=== PATIENT | female | born 1950 | race Caucasian/White ===

== ENCOUNTER 2016-09-14 15:56 | Inpatient (IN) ==
[2016-09-14] MEDS ORDERED: methylPREDNISolone 125 MG/2 ML VIAL IVP ONE (16:16)
[2016-09-14] MEDS ORDERED: 0.9 % Sodium Chloride 1,000 ML IVC ONE (16:16)
[2016-09-14] MEDS ORDERED: Levofloxacin 750 MG/150 ML 750 MG/150 ML BAG IVPB ONE (16:16)
[2016-09-14] MEDS ORDERED: Ipratropium/Albuterol Neb 3 ML IH ONE (16:16)
[2016-09-14 17:05] LABS: Basophils % 0.4 %; Hematocrit 32.1 % (35.3-44.9); Immature Granulocytes % 2.4 % (0-4); Lymphocytes # 1.2 K/mcL (0.6-4.6); Lymphocytes % 13.4 %; Mean Corpuscular HGB Conc 34.3 g/dL (31.6-35.5); Mean Corpuscular Hemoglobin 32.1 pg (28.0-33.3); Mean Corpuscular Volume 93.6 fL (83.0-100.0); Mean Platelet Volume 10.4 fL (9.4-12.4); Monocytes # 0.6 K/mcL (0.0-1.3); Monocytes % 6.7 %; Platelet Count 113 K/mcL (140-400); Red Blood Count 3.43 M/mcL (3.82-4.97); Red Cell Distribution Width 13.7 % (11.5-14.5); Segmented Neutrophils % 77.1 %
[2016-09-14 17:22] LABS: Calcium 9.4 mg/dL (8.6-10.8); Potassium 4.5 mEq/L (3.5-4.5)
--- NOTE | 2016-09-14 18:43 | Emergency Department Note ---
Disposition Clinical Impression: BLANKA (acute kidney injury), Cough Bilateral pneumonia Qualifiers: Pneumonia type: due to unspecified organism Lung location: unspecified part of lung Qualified Code(s): J18.9 - Pneumonia, unspecified organism Disposition: Admitted As Inpatient Condition: Good Time of Disposition: 18:59 General Adult HPI - General Chief complaint: ED Upper Respiratory Infection Stated complaint: Cough, nausea, loss of appetite Time Seen by Provider: 09/14/16 16:02 Source: patient, family Mode of arrival: ambulatory Limitations: no limitations Nursing Notes Reviewed: Yes Vital Signs Reviewed: Yes - History of Present Illness HPI Narrative: Patient presents emergency room with persistent cough over the last 3 weeks. She was seen by her outside of hospital courier driver and they were concerned recommended she come to the emergency room. She has had a 36 pound weight loss in the last 3 months along with progressive weakness. Denies any other symptoms. She denied chest pain shortness of breath fevers chills nausea vomiting or diarrhea. Main complaint is a progression of the weakness in the persistent cough she is failed to outpatient antibiotic regimens Onset (ago): week(s) Pain Scale: 0 Consistency: constant Improves with: nothing Worsens with: movement Associated symptoms: Reports: cough, fever/chills, loss of appetite, malaise. Denies: diaphoresis Treatments Prior to Arrival: none - Related Data Home Medications Medication Instructions Recorded Confirmed Cholecalciferol (Vitamin D3) 50,000 unit PO WE 01/18/15 09/14/16 [Vitamin D3] FLUoxetine HCl [Prozac] 40 mg PO DAILY 01/18/15 09/14/16 Insulin Glargine,Hum.rec.anlog 20 unit SQ HS 01/18/15 09/14/16 [Lantus Solostar] Insulin LISPRO [HumaLOG] 0 units SQ TIDWM 01/18/15 09/14/16 Levothyroxine [Synthroid] 100 mcg PO DAILY 01/18/15 09/14/16 Promethazine [Phenergan] 25 mg PO Q6HR PRN 01/18/15 09/14/16 Rizatriptan Benzoate [Maxalt] 10 mg PO PRN PRN 01/18/15 09/14/16 Tizanidine [Zanaflex] 4 mg PO HS 01/18/15 09/14/16 Amlodipine [Norvasc] 5 mg PO DAILY 12/10/15 09/14/16 Hydroxyzine HCl 25 mg PO BID PRN 01/21/16 09/14/16 Nystatin POWDER [Nystop] 1 appl TP BID 02/05/16 09/14/16 Amitriptyline [Elavil] 50 mg PO HS 09/14/16 09/14/16 Furosemide [Lasix] 40 mg PO BID PRN 09/14/16 09/14/16 Omeprazole [PriLOSEC] 20 mg PO DAILY 09/14/16 09/14/16 Previous Rx's Medication Instructions Recorded Folic Acid 1 mg PO DAILY #30 tablet 11/27/15 Nadolol [Corgard] 10 mg PO BID #60 tablet 12/14/15 Polyethylene Glycol 3350 [MiraLAX 1 scoop PO DAILY #510 gm 02/05/16 Powder Bulk 17.9 Oz] OxyCODONE ER (12 HR) [OxyCONTIN] 30 mg PO Q12H #14 tab.er.12h 02/23/16 OxyCODONE Immed Rel [Roxicodone 5 5 mg PO Q4HR PRN #60 tablet 02/23/16 MG] Allergies Allergy/AdvReac Type Severity Reaction Status Date / Time Penicillins Allergy Rash Verified 03/03/16 15:25 metoclopramide [From Reglan] AdvReac See Verified 03/03/16 15:25 Comments All systems ED: reviewed and negative except as stated. Constitutional: Denies: fever, chills Cardiovascular: Reports: dyspnea on exertion, orthopnea. Denies: chest pain, palpitations Respiratory: Reports: cough. Denies: dyspnea, wheezes Gastrointestinal: Denies: abdominal pain, nausea, vomiting, diarrhea Genitourinary: Denies: dysuria, frequency Past Medical History - Past Medical History Attestation: Yes The following information was validated with the patient. Source: patient Medical history: Reports: arthritis, CHF, diabetes, GERD, hypertension, liver disease, migraine, osteoporosis, renal disease, thyroid disease, other Surgical history: Reports: appendectomy, , cholecystectomy, hysterectomy, orthopedic, other, other Psychiatric history: Reports: anxiety, depression PIPE INSULATOR HELPER history: Reports: no PIPE INSULATOR HELPER history - Social History Smoking Status: Never smoker Smokeless Tobacco Status: No Alcohol use: Reports: none Drug use: Reports: none Physical Exam - General Limitations: no limitations General appearance: alert, in no apparent distress - Neck Neck exam: Present: normal inspection, full ROM, trachea midline. Absent: tenderness - Chest Chest inspection: Present: normal inspection, symmetric chest wall rise. Absent : tenderness - Respiratory Respiratory exam: Present: respiratory distress, wheezes, accessory muscle use. Absent: stridor - Cardiovascular Cardiovascular exam: Present: regular rate, normal rhythm, normal heart sounds - Abdominal Exam Abdominal exam: Present: soft, Non-Tender, normal bowel sounds. Absent: tenderness, distention, guarding, rebound - Extremities Exam Extremities exam: Present: normal inspection, full ROM, normal capillary refill. Absent: tenderness, pedal edema - Back Exam Back exam: Present: normal inspection, full ROM - Neurological Exam Neurological exam: Present: alert, oriented X3 - Psychiatric Psychiatric exam: Present: normal affect, normal mood - Skin Skin exam: Present: warm, dry, intact, normal color Course Course Narrative: Patient seen and examined the time of arrival. See history of present illness. 66-year-old female presents to emergency room complaining of cough nausea and persistent shortness of breath. She was seen by her courier driver Dr. Miranda recommended come the emergency room. She has had a 36 pound weight loss over the last 2-3 weeks as well. There was concern for some metastatic related disease or failed outpatient treatment of pneumonia. Vital signs on presentation are stable patient is afebrile. She does have accessory muscle use of weeks with diminished aeration in the bases of the lungs. Intermittent crackles and wheezes noted. Patient has regular heart dry mucous membranes abdomen is soft without masses no guarding no rigidity. patient was offered from his without any difficulty. patient is concerning for possible pneumonia is refractory to antibiotic regimen, malignancy, copd exacerbation lung disease. patient chest x-ray ekg troponin labs bnp and antibiotic regimen started at this time. blood cultures and lactic acid also ordered. patient stable resting comfortably in the bed. disposition pending workup and treatment course. family is at the bedside and they are comfortable with this plan. patient is currently denying fevers chills nausea vomiting diarrhea, chest pain headache or vision change. may complaint is intermittent shortness of breath and persistent cough - Reevaluation(s) Reevaluation #1: Patient found to have a area of consolidation in the right lower lung. By chest x-ray this is concerning consistent with her presentation. CT imaging order that time. Noncontrasted scan ordered secondary to acute on chronic renal insufficiency. Patient does have concern for malignancy even though she is not a active smoker. Vital signs otherwise stable. Labs are within normal limits. Creatinine is elevated up to 2.79. Baseline is 1.7. GFR stable. Patient will most likely need admission to hospital for definitive management. Disposition pending CT imaging Time: 16:35 Reevaluation #2: Patient found to have bilateral groundglass appearances to the lower lung pineda with consolidation in the right lower lung. Pulse ox and heart rate of stable. Low clinical suspicion of pulmonary emboli. Main concern at this time is interstitial pneumonia. Antibiotic regimen are started. Hospitalist was contacted. Nurse practitioner alfreda and I reviewed the patient's presentation symptoms and medical history. They had no other recommendations this time. Patient be brought in the hospital for bilateral lower lobe pneumonia persisting cough and concern for failure to thrive. No other acute pathology noted during this treatment course and evaluation. Admission process. We will continue to monitor admission is completed Time: 18:57 Vital Signs Temperature 98.2 F 09/14/16 15:59 Pulse Rate 70 09/14/16 15:59 Respiratory Rate 18 09/14/16 15:59 Blood Pressure 124/73 09/14/16 15:59 O2 Sat by Pulse Oximetry 97 09/14/16 15:59 Temperature 97.6 F 09/15/16 07:17 Pulse Rate 68 09/15/16 07:17 Respiratory Rate 15 09/15/16 07:17 Blood Pressure 114/63 09/15/16 07:17 O2 Sat by Pulse Oximetry 96 09/15/16 07:17 Oxygen Delivery Oxygen Delivery Room Air Medical Decision Making - MDM Narrative Medical decision making narrative: Bilateral pneumonia, cough, weight loss, failure to thrive - Medical Records Medical records reviewed: Yes I reviewed the patient's medical records. - Lab Data Lab results reviewed: Yes I reviewed the patient's lab results. Result diagrams: 09/15/16 04:47 09/15/16 04:47 Lab Results 09/14/16 09/14/16 09/14/16 Range/Units 16:54 16:54 16:54 WBC 9.0 (4.3-11.1) K/mcL RBC 3.43 L (3.82-4.97) M/mcL Hgb 11.0 L (11.5-15.4) g/dL Hct 32.1 L (35.3-44.9) % MCV 93.6 (83.0-100.0) fL MCH 32.1 (28.0-33.3) pg MCHC 34.3 (31.6-35.5) g/dL RDW 13.7 (11.5-14.5) % Plt Count 113 L (140-400) K/mcL MPV 10.4 (9.4-12.4) fL Immature Gran % 2.4 (0-4) % Seg Neutrophils % 77.1 % Lymphocytes % 13.4 % Monocytes % 6.7 % Eosinophils % 0.0 % Basophils % 0.4 % Neutrophils # 7.0 (1.6-8.9) K/mcL Lymphocytes # 1.2 (0.6-4.6) K/mcL Monocytes # 0.6 (0.0-1.3) K/mcL Eosinophils # 0.0 (0.0-0.6) K/mcL Basophils # 0.0 (0.0-0.2) K/mcL Sodium 131 L (136-145) mEq/L Potassium 4.5 (3.5-4.5) mEq/L Chloride 95 L (98-109) mEq/L Carbon Dioxide 25 (19-29) mEq/L BUN 67 H (7-20) mg/dL Creatinine 2.79 H (0.57-1.11) mg/dL Est GFR ( Amer) 21 L (> 60) Est GFR (Non-Af Amer) 17 L (> 60) BUN/Creatinine Ratio 24 (6-26) Glucose 164 H (70-99) mg/dL Calculated Osmolality 295 (280-300) Calcium 9.4 (8.6-10.8) mg/dL Troponin I 0.00 (0-0.03) ng/mL B-Natriuretic Peptide (0-100) pg/mL 09/14/16 Range/Units 16:54 WBC (4.3-11.1) K/mcL RBC (3.82-4.97) M/mcL Hgb (11.5-15.4) g/dL Hct (35.3-44.9) % MCV (83.0-100.0) fL MCH (28.0-33.3) pg MCHC (31.6-35.5) g/dL RDW (11.5-14.5) % Plt Count (140-400) K/mcL MPV (9.4-12.4) fL Immature Gran % (0-4) % Seg Neutrophils % % Lymphocytes % % Monocytes % % Eosinophils % % Basophils % % Neutrophils # (1.6-8.9) K/mcL Lymphocytes # (0.6-4.6) K/mcL Monocytes # (0.0-1.3) K/mcL Eosinophils # (0.0-0.6) K/mcL Basophils # (0.0-0.2) K/mcL Sodium (136-145) mEq/L Potassium (3.5-4.5) mEq/L Chloride (98-109) mEq/L Carbon Dioxide (19-29) mEq/L BUN (7-20) mg/dL Creatinine (0.57-1.11) mg/dL Est GFR ( Amer) (> 60) Est GFR (Non-Af Amer) (> 60) BUN/Creatinine Ratio (6-26) Glucose (70-99) mg/dL Calculated Osmolality (280-300) Calcium (8.6-10.8) mg/dL Troponin I (0-0.03) ng/mL B-Natriuretic Peptide 414 H (0-100) pg/mL - Radiology Data Radiology results reviewed: Yes I reviewed the patient's radiology results. Chest x-ray and CT scan confirmed bilateral lower lobe pneumonia. - EKG Data EKG #1 EKG attestation: Yes I reviewed and interpreted this EKG. EKG shows normal: sinus rhythm, axis, intervals, QRS complexes, ST-T waves Rate: normal Rhythm: NSR [place]/QRS: normal When compared to previous EKG there are: no significant changes Interpretation: no acute changes, unchanged when compared to prior tracing (date ) (02/21/16) Attestation Statement - Attestation Attestation: I, Darwin Montoya, examined this patient and my medical decision-making was reviewed with the COSMETICS DEMONSTRATOR/PA/Advanced Practice Nurse/Resident Physician. I agree with the documented findings, disposition and treatment plan as described except to the extent set forth below. 66-year-old female presents with concerns of increasing weakness and fatigue. Patient sent in by Dr. Miranda after being seen in the office. Patient has had significant weight loss of greater than 30 pounds over the past 3 months. Patient states that she has difficulty with her appetite, with everything tasting metallic or salty. Patient has a cough that has been present for multiple weeks and has been treated with 2 outpatient antibiotics although patient is unable to describe the name of these antibiotics. CT is suggestive of pneumonia. Patient started on levofloxacin secondary to penicillin allergy. Patient will be admitted to the hospital for continuation of care and further evaluation.
[2016-09-14] MEDS ORDERED: GuaiFENesin Liq 200 MG/10 ML UDC PO PRN (20:44)
[2016-09-14] MEDS: Benzonatate 100 MG CAPSULE PO PRN (20:59)
[2016-09-14] MEDS: *HR* Promethazine 25 MG/ML VIAL IVP PRN (21:31)
[2016-09-14] MEDS ORDERED: Acetaminophen 325 MG TABLET PO PRN (22:46)
[2016-09-14] MEDS ORDERED: Naloxone 0.4 MG/ML INJ IVP PRN (22:46)
--- NOTE | 2016-09-14 22:52 | Internal Med History&Physical ---
Date of Encounter: 09/14/16 Time of Encounter: 22:51 Assessment and Plan (1) Bilateral pneumonia Current visit: Yes Status: Acute Pt is noted to have bilateral pneumonia. Start on levofloxacin, for community- acquired pneumonia. Patient reports history of flu in the family - will start vancomycin to cover for possible post-influenza pneumonia. will obtain sputum cultures and titrate antibioitics Qualifiers: Pneumonia type: due to unspecified organism Lung location: unspecified part of lung Qualified Code(s): J18.9 - Pneumonia, unspecified organism (2) Acute kidney injury superimposed on CKD Current visit: Yes Status: Acute Positive for oral intake. Patient to started on IV fluids. (3) Chronic diastolic heart failure Current visit: Yes Status: Chronic monitor (4) Diabetes mellitus Current visit: Yes Status: Chronic Start sliding-scale insulin Qualifiers: Diabetes mellitus type: type 2 Diabetes mellitus complication status: with kidney complications Diabetes mellitus complication detail: with chronic kidney disease Diabetes mellitus usp insulin use: with usp use Chronic kidney disease stage: stage 3 (moderate) Qualified Code(s): E11.22 - Type 2 diabetes mellitus with diabetic chronic kidney disease; N18.3 - Chronic kidney disease, stage 3 (moderate); Z79.4 - jail (current) use of insulin (5) Hypothyroidism Current visit: Yes Status: Chronic Continue syntrhoid. Check TSH Qualifiers: Hypothyroidism type: unspecified Qualified Code(s): E03.9 - Hypothyroidism , unspecified (6) Physical deconditioning Current visit: Yes Status: Chronic PT evaluation (7) Weight loss Current visit: Yes Status: Acute Will check TSH, cortisol (8) Liver cirrhosis Current visit: Yes Status: Chronic continue nodalol Qualifiers: Hepatic cirrhosis type: unspecified hepatic cirrhosis Ascites presence: without ascites Qualified Code(s): K74.60 - Unspecified cirrhosis of liver Internal Medicine - H&P: HPI Chief complaint: Cough; Admitted From: Emergency Dept Plans for Post Hospital Care: Home History of present illness: Ms. Whelan is a 66 year old female with history of chronic anemia, CHF ( Chronic diastolic), diabetes, GERD, hypertension, liver disease (Cirrhosis), migraine, osteoporosis, Chronic kidney disease stage III (likely diabetic nephropathy), Hypothyroidism. She was seen by her scouring train operator Dr. Miranda, who recommended come the emergency room for suspected pneumonia. Patient presents emergency room with persistent cough over the last 3 weeks. She reports that her family members have been sick and there was concern for flu. She reports seeing her primary care physician recommended conservative management. She reports cough without significant expectoration. Reports shortness of breath, lower chest pain related to cough. Also reports nausea, generalized weakness, feeling dizzy on standing up, poor oral intake. She reportedly had 36 pound weight loss in the last 3 months She denies fever, chills, abdominal pain, dysuria, diarrhea. She was evaluated in the emergency department and imaging was suspicious for Pneumonia. She Was Given Levofloxacin and Solu-Medrol. She Is Admitted to Hospitalist Service for Further Workup and Management. Past Med Surg Social Fam HX - Past Medical History Medical history: arthritis, CHF, diabetes, GERD, hypertension, liver disease, migraine, osteoporosis, renal disease, thyroid disease, other Psychiatric history: anxiety, depression - Past Surgical History Surgical History: appendectomy, , cholecystectomy, hysterectomy, orthopedic, other, other - Social History Smoking Status: Never smoker Smokeless Tobacco Status: No Alcohol use: none Drug use: none - Family History Father Family Member Ethnicity: Non- Living Status: Hx Family Cardiac Disorders: Yes (Heart disease, stroke) Mother Family Member Ethnicity: Non- Living Status: Hx Family Cardiac Disorders: Yes (CHF) Hx Family Respiratory Disorders: No Hx Family Cancer: Yes (Pancreatic ca) Hx Family GI Disorders: No Hx Family Endocrine Disorder: Yes (DM) Hx Family Neuromuscular Disorders: No Hx Family Neurologic Disorders: No Hx Family HEENT Disorders: No Hx Family Autoimmune Disorders: No Internal Medicine - H&P: Meds Cholecalciferol (Vitamin D3) [Vitamin D3] 50,000 unit PO WE 01/18/15 [History] FLUoxetine HCl [Prozac] 40 mg PO DAILY 01/18/15 [History] Insulin Glargine,Hum.rec.anlog [Lantus Solostar] 20 unit SQ HS 01/18/15 [History ] Insulin LISPRO [HumaLOG] 0 units SQ TIDWM 01/18/15 [History] Levothyroxine [Synthroid] 100 mcg PO DAILY 01/18/15 [History] Promethazine [Phenergan] 25 mg PO Q6HR PRN 01/18/15 [History] Rizatriptan Benzoate [Maxalt] 10 mg PO PRN PRN 01/18/15 [History] Tizanidine [Zanaflex] 4 mg PO HS 01/18/15 [History] Folic Acid 1 mg PO DAILY #30 tablet 11/27/15 [Rx] Amlodipine [Norvasc] 5 mg PO DAILY 12/10/15 [History] Nadolol [Corgard] 10 mg PO BID #60 tablet 12/14/15 [Rx] Hydroxyzine HCl 25 mg PO BID PRN 01/21/16 [History] Nystatin POWDER [Nystop] 1 appl TP BID 02/05/16 [History] Polyethylene Glycol 3350 [MiraLAX Powder Bulk 17.9 Oz] 1 scoop PO DAILY #510 gm 02/05/16 [Rx] OxyCODONE ER (12 HR) [OxyCONTIN] 30 mg PO Q12H #14 tab.er.12h 02/23/16 [Rx] OxyCODONE Immed Rel [Roxicodone 5 MG] 5 mg PO Q4HR PRN #60 tablet 02/23/16 [Rx] Amitriptyline [Elavil] 50 mg PO HS 09/14/16 [History] Furosemide [Lasix] 40 mg PO BID PRN 09/14/16 [History] Omeprazole [PriLOSEC] 20 mg PO DAILY 09/14/16 [History] Allergies Penicillins Allergy (Verified 03/03/16 15:25) Rash metoclopramide [From Reglan] Adverse Reaction (Verified 03/03/16 15:25) See Comments All Systems PM: A 10-system review of systems was performed and is negative for pertinent findings except as documented above in the HPI. - Constitutional Vitals: Temp Pulse Resp BP Pulse Ox 98.5 F 75 17 107/70 100 09/14/16 21:06 09/14/16 21:06 09/14/16 21:06 09/14/16 21:06 09/14/16 21:06 Exam: General: In Mild distress distress at the time of my evaluation HEENT: Oral mucosa is dry. No conjunctival palor or scleral icterus Neck: No obvious neck swellings Lungs: Left basilar crackles Cardiac: Regular rate and rhythm. No significant murmurs Abdomen: Obese, non tender. Bowel sounds present Genitourinary: No davis catheter Neurological: Alert and oriented. No gross localizing deficits Psych: Not aggressive or agitated Extremities: no significant leg edema Skin: No generalized rash Internal Med - H&P Results - Labs CBC & Chem 7: 09/14/16 16:54 09/14/16 16:54 - EKG Data -: EKG Interpreted by Myself EKG shows normal: sinus rhythm - EKG Data EKG comments: T wave inversion in lead III 09/15/16 04:30 - Impressions ITS Impressions Chest X-Ray 09/14/16 16:17 IMPRESSION: Suggestion of a possible infiltrate in the right base which may represent focal pneumonia. D/ / 09/14/2016 16:55:18 [facility] [place] Inter[place]ting Provider: Puja Galvan MD Chest CT 09/14/16 17:31 IMPRESSION: Extensive right greater than left pulmonary disease, pneumonia is suspected. D/ / Jose Celaya MD / Jose Celaya MD Interpreting Provider: Jose Celaya MD
[2016-09-14] MEDS ORDERED: Vancomycin 1,250 MG in D5% in Water 250 ML IVPB SCH (23:00)
[2016-09-14] MEDS ORDERED: Vancomycin 1,250 MG in D5% in Water 250 ML IVPB ONE (23:00)
[2016-09-14] MEDS: 0.9 % Sodium Chloride 1,000 ML IVC SCH (23:21)
[2016-09-14] MEDS: *HR* Heparin 5,000 UNIT/ML VIAL SQ SCH (23:21)
[2016-09-15] MEDS ORDERED: *HR* OxyCODONE Immed Rel 5 MG TABLET PO PRN (04:35)
[2016-09-15] MEDS ORDERED: hydrOXYzine pamoate 25 MG CAPSULE PO PRN (04:35)
[2016-09-15] MEDS ORDERED: Dextrose Gel 15 GM PO PRN ×2 (05:03)
[2016-09-15] MEDS ORDERED: D5% in Water 1,000 ML IVC PRN (05:03)
[2016-09-15] MEDS: *HR* Heparin 5,000 UNIT/ML VIAL SQ SCH ×3 (05:03→20:55)
[2016-09-15] MEDS ORDERED: *HR* Dextrose 50 % in Water (Syg) 50 ML SYRINGE IVP PRN (05:03)
[2016-09-15 05:58] LABS: Basophils % 0.3 %; Hematocrit 24.3 % (35.3-44.9); Hemoglobin 8.4 g/dL (11.5-15.4); Mean Corpuscular HGB Conc 34.6 g/dL (31.6-35.5); Red Cell Distribution Width 13.4 % (11.5-14.5)
[2016-09-15 06:00] LABS: Immature Granulocytes % 3.2 % (0-4); Immature Platelets 3.5 % (1.1-6.1); Lymphocytes # 0.5 K/mcL (0.6-4.6); Lymphocytes % 15.7 %; Mean Corpuscular Hemoglobin 32.2 pg (28.0-33.3); Mean Corpuscular Volume 93.1 fL (83.0-100.0); Mean Platelet Volume 10.4 fL (9.4-12.4); Monocytes # 0.1 K/mcL (0.0-1.3); Monocytes % 1.7 %; Neutrophils # 2.7 K/mcL (1.6-8.9); Red Blood Count 2.61 M/mcL (3.82-4.97); Segmented Neutrophils % 79.1 %
[2016-09-15 06:01] LABS: Platelet Count 70 K/mcL (140-400)
[2016-09-15 06:11] LABS: Albumin 2.4 g/dL (3.5-5.0); Calcium 8.3 mg/dL (8.6-10.8); Phosphorous 3.9 mg/dL (2.3-4.7); Potassium 4.6 mEq/L (3.5-4.5)
[2016-09-15 06:19] LABS: Thyroid Stimulating Hormone 1.22 mcIU/mL (0.350-4.840)
[2016-09-15 07:16] LABS: Platelet Estimate Decreased (Normal)
[2016-09-15] MEDS ORDERED: Insulin LISPRO 300 UNITS/3 ML VIAL SQ SCH ×2 (07:30→21:00)
[2016-09-15] MEDS: 0.9 % Sodium Chloride 1,000 ML IVC SCH ×2 (08:14→20:47)
[2016-09-15] MEDS: Folic Acid 1 MG TABLET PO SCH (08:16)
[2016-09-15] MEDS: amLODIPine 5 MG TABLET PO SCH (08:16)
[2016-09-15] MEDS: FLUoxetine 20 MG CAPSULE PO SCH (08:16)
[2016-09-15] MEDS: Nystatin POWDER 30 GM BOTTLE TP SCH ×2 (08:18→20:55)
[2016-09-15] MEDS: Lactulose Oral Soln 20 GM/30 ML UDC PO SCH ×2 (10:09→20:49)
--- NOTE | 2016-09-15 10:54 | Internal Med Progress Note ---
<Nilson Gold - Last Filed: 09/15/16 10:52> Date of Encounter: 09/15/16 Time of Encounter: 09:30 - Assessment and plan (1) Bilateral pneumonia Current Visit: Yes Status: Acute Assessment and plan: Patient presented with lethargy, shortness of breath, cough with productive sputum. Chest CT demonstrated bilateral infiltrates in lower lung lobes. - Vitals stable. Patient to longer needs nasal cannula oxygen - Multiple sick contacts at home. Plan: -Continue Levaquin - Discontinue vancomycin - Continue breathing treatments. - We will check influenza PCR as influenza swab was negative. Qualifiers: Pneumonia type: due to unspecified organism Lung location: unspecified part of lung Qualified Code(s): J18.9 - Pneumonia, unspecified organism (2) Pancytopenia Current Visit: No Status: Chronic Assessment and plan: Documented history of pancytopenia recently seen by oncology and requested to start Aranesp. Previous platelet counts around 700. Continue to monitor and patient. (3) Liver cirrhosis Current Visit: Yes Status: Chronic Assessment and plan: Chronic. Stable. Qualifiers: Hepatic cirrhosis type: unspecified hepatic cirrhosis Ascites presence: without ascites Qualified Code(s): K74.60 - Unspecified cirrhosis of liver (4) Hypothyroidism Current Visit: Yes Status: Chronic Assessment and plan: TSH 1.2-0. - Continue levothyroxin 100, every morning Qualifiers: Hypothyroidism type: unspecified Qualified Code(s): E03.9 - Hypothyroidism , unspecified (5) Diabetes mellitus Current Visit: Yes Status: Chronic Assessment and plan: Known type 2 diabetes. Hyperglycemic this morning. Plan: -Continue Levemir 20 units subcutaneous at bedtime - Increase sliding scale medium dose. - ACHS glucose checks. 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 SBP 120 Plan: - Continue Norvasc 5 mg by mouth daily - Nadolol all 10 mg by mouth twice a day (7) Chronic diastolic heart failure Current Visit: Yes Status: Chronic Assessment and plan: Currently stable. Plan: - Cardio/renal diet - Salt restrictions 2 g. - Daily weights and strict ins and outs. - Monitor volume status as patient is receiving IV fluids for BLANKA. (8) Acute kidney injury superimposed on CKD Current Visit: Yes Status: Acute Assessment and plan: Acute kidney injury superimposed on stage IV kidney disease. Likely secondary to dehydration, and pneumonia. Plan: - Continue IV fluids at 100 mL/hour - Avoid nephrotoxic medications and renally dose antibiotics - Monitor with am labs. (9) DVT prophylaxis Current Visit: No Status: Acute Assessment and plan: Subcutaneous heparin every 8 hours. - Subjective Interval history: Ms. Whelan 66 yo F seen and evaluated at bedside this morning. She is awake alert and oriented. She complains of just feeling lethargic and calf tenderness. She continues to have a cough that is occasionally productive. Denies significant shortness of breath, fevers chills or night sweating. She overall says she does not feel well and wants to feel better. She has a bruise on the left side of her face which she said she obtained when falling one week prior. - Constitutional Vitals: Temp Pulse Resp BP Pulse Ox 97.6 F 68 15 114/63 96 09/15/16 07:17 09/15/16 07:17 09/15/16 07:17 09/15/16 07:17 09/15/16 07:17 General appearance: Present: cooperative, A&O X 3 - Head Head exam: Present: atraumatic, normocephalic - Eye Eye exam: Present: PERRL, conjuntiva pink, sclera anicteric Pupils: Present: PERRL - ENT ENT exam: Present: mucous membranes moist - Neck Neck exam general surgery: Present: supple, trachea midline. Absent: lymphadenopathy - Respiratory Respiratory exam: Present: CTAB - Cardiovascular Cardiovascular exam: Present: RRR, systolic murmur Additional comments: Grade 2/6 systolic ejection murmur. - GI/Abdominal GI/Abdominal exam: Present: normal bowel sounds, soft, no peritoneal signs. Absent: distended, tenderness - Extremities Exam Extremities exam: Present: warm, radial pulses palpable and symetrical. Absent : calf tenderness, cyanotic, pedal edema - Neurological Exam Neurological exam: Present: alert, oriented X3, no focal deficits. Absent: pronater drift, facial droop, speech deficit - Psychiatric Psychiatric exam: Present: normal affect, normal mood Internal Medicine: Result - Labs CBC & Chem 7: 09/15/16 04:47 09/15/16 04:47 Labs: Short CBC 09/15/16 Range/Units 04:47 WBC 3.4 L D (4.3-11.1) K/mcL Hgb 8.4 L D (11.5-15.4) g/dL Hct 24.3 L (35.3-44.9) % Plt Count 70 L (140-400) K/mcL Neutrophils # 2.7 (1.6-8.9) K/mcL BMP 09/15/16 04:47 Sodium 131 L Potassium 4.6 H Chloride 99 Carbon Dioxide 18 L BUN 71 H Creatinine 2.58 H Glucose 266 H Calcium 8.3 L Liver Function 09/15/16 Range/Units 04:47 Albumin 2.4 L (3.5-5.0) g/dL Consult Discharge Plan - Plan Referrals: David Sadler MD [Primary Care Provider] - <Jonathan Goldberg - Last Filed: 09/15/16 16:05> Date of Encounter: 09/15/16 - Constitutional Vitals: Temp Pulse Resp BP Pulse Ox 97.4 F L 68 16 122/66 95 09/15/16 11:57 09/15/16 11:57 09/15/16 11:57 09/15/16 11:57 09/15/16 11:57 Internal Medicine: Result - Labs CBC & Chem 7: 09/15/16 04:47 09/15/16 04:47 Labs: Short CBC 09/15/16 Range/Units 04:47 WBC 3.4 L D (4.3-11.1) K/mcL Hgb 8.4 L D (11.5-15.4) g/dL Hct 24.3 L (35.3-44.9) % Plt Count 70 L (140-400) K/mcL Neutrophils # 2.7 (1.6-8.9) K/mcL BMP 09/15/16 04:47 Sodium 131 L Potassium 4.6 H Chloride 99 Carbon Dioxide 18 L BUN 71 H Creatinine 2.58 H Glucose 266 H Calcium 8.3 L Liver Function 09/15/16 Range/Units 04:47 Albumin 2.4 L (3.5-5.0) g/dL - Attending Attestation I examined this patient and my medical decision-making was reviewed with the CAR RECORD CLERK/PA/Advanced Practice Nurse/Resident Physician. I agree with the documented findings, disposition and treatment plan as described except to the extent set forth below. Bilateral pneumonia, influenza negative. Pancytopenia ( chronic). Continue with iv fluids and monitor renal function tests.
[2016-09-15] MEDS ORDERED: GuaiFENesin Liq 200 MG/10 ML UDC PO PRN (11:09)
[2016-09-15] MEDS: Insulin LISPRO 300 UNITS/3 ML VIAL SQ SCH ×3 (13:14→20:53)
--- NOTE | 2016-09-15 18:44 | Electrocardiograph Report ---
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
[2016-09-15] MEDS ORDERED: Insulin DETEMIR 100 UNIT/ML X5UNITS SQ SCH (21:00)
[2016-09-15] MEDS ORDERED: Vancomycin 1,250 MG in D5% in Water 250 ML IVPB ONE (23:00)
[2016-09-15] MEDS ORDERED: Vancomycin 1,000 MG in D5% in Water 250 ML IVPB ONE (23:00)
[2016-09-16] MEDS: *HR* OxyCODONE Immed Rel 5 MG TABLET PO PRN ×3 (01:20→23:25)
[2016-09-16 01:24] LABS: Bilirubin,Urine Negative (Negative); Blood,Urine Negative (Negative); Clarity,Urine Clear (Clear); Color,Urine Yellow (Yellow); Glucose,Urine (UA) Normal (Normal); Ketones,Urine Negative (Negative); Leukocyte Esterase,Urine Trace (Negative); Nitrite,Urine Negative (Negative); Protein,Urine Negative (Neg-Trace); Specific Gravity,Urine 1.011 (1.010-1.025); Urobilinogen,Urine Normal (Normal)
[2016-09-16 01:26] LABS: Bacteria,Urine None Seen per hpf (None-Few); Hyaline Casts,Urine None Seen per lpf (None-Few); RBC,Urine 0-3 per hpf (0-3); Squamous Epithelial Cell,Urine Many per lpf (None-Few)
[2016-09-16 03:47] LABS: Basophils % 0.3 %
[2016-09-16 03:50] LABS: Hematocrit 23.6 % (35.3-44.9); Hemoglobin 8.1 g/dL (11.5-15.4); Immature Granulocytes % 2.7 % (0-4); Immature Platelets 3.2 % (1.1-6.1); Immature Reticulocyte % 16.7 % (11.0-38.0); Lymphocytes % 29.4 %; Mean Corpuscular HGB Conc 34.3 g/dL (31.6-35.5); Mean Corpuscular Hemoglobin 32.9 pg (28.0-33.3); Mean Corpuscular Volume 95.9 fL (83.0-100.0); Mean Platelet Volume 10.2 fL (9.4-12.4); Monocytes # 0.3 K/mcL (0.0-1.3); Monocytes % 8.4 %; Red Blood Count 2.46 M/mcL (3.82-4.97); Red Cell Distribution Width 13.9 % (11.5-14.5); Retculocyte # 0.07 M/mcL (0.05-0.10); Reticulocyte % 2.7 % (1.6-2.8); Segmented Neutrophils % 59.2 %
[2016-09-16 03:51] LABS: Platelet Count 76 K/mcL (140-400)
[2016-09-16 03:56] LABS: Albumin 2.4 g/dL (3.5-5.0); Albumin/Globulin Ratio 0.7 (1.1-2.2); Bilirubin,Total 0.6 mg/dL (0.2-1.2); Calcium 8.3 mg/dL (8.6-10.8); Globulin 3.5 g/dL (2.4-3.5); Potassium 3.8 mEq/L (3.5-4.5); Total Protein 5.9 g/dL (6.0-8.3)
[2016-09-16] MEDS: 0.9 % Sodium Chloride 1,000 ML IVC SCH (06:14)
[2016-09-16] MEDS: *HR* Heparin 5,000 UNIT/ML VIAL SQ SCH ×3 (06:14→23:06)
[2016-09-16] MEDS ORDERED: Aminoglycoside Consult 1 EACH MC ONE (08:07)
[2016-09-16] MEDS: amLODIPine 5 MG TABLET PO SCH (08:07)
[2016-09-16] MEDS: FLUoxetine 20 MG CAPSULE PO SCH (08:07)
[2016-09-16] MEDS: Folic Acid 1 MG TABLET PO SCH (08:07)
[2016-09-16] MEDS: Lactulose Oral Soln 20 GM/30 ML UDC PO SCH ×2 (08:08→23:01)
[2016-09-16] MEDS: Insulin LISPRO 300 UNITS/3 ML VIAL SQ SCH ×4 (08:11→22:20)
[2016-09-16] MEDS: Nystatin POWDER 30 GM BOTTLE TP SCH ×2 (08:12→23:08)
--- NOTE | 2016-09-16 10:13 | Internal Med Progress Note ---
<Nilson Gold - Last Filed: 09/16/16 10:11> Date of Encounter: 09/16/16 Time of Encounter: 09:00 - Assessment and plan (1) Bilateral pneumonia Current Visit: Yes Status: Acute Assessment and plan: Patient presented with lethargy, shortness of breath, cough with productive sputum. Chest CT demonstrated bilateral infiltrates in lower lung lobes. - Vitals stable. Patient to longer needs nasal cannula oxygen - Multiple sick contacts at home. Plan: - Continue Levaquin - Discontinue vancomycin - Continue breathing treatments. Qualifiers: Pneumonia type: due to unspecified organism Lung location: unspecified part of lung Qualified Code(s): J18.9 - Pneumonia, unspecified organism (2) Pancytopenia Current Visit: No Status: Chronic Assessment and plan: Documented history of pancytopenia recently seen by oncology and requested to start Aranesp. Previous platelet counts around 70. Continue to monitor and patient. - Iron studies completed demonstrating iron 95, percent saturation 81, transferrin 84. (3) Liver cirrhosis Current Visit: Yes Status: Chronic Assessment and plan: Chronic. Stable. Qualifiers: Hepatic cirrhosis type: unspecified hepatic cirrhosis Ascites presence: without ascites Qualified Code(s): K74.60 - Unspecified cirrhosis of liver (4) Hypothyroidism Current Visit: Yes Status: Chronic Assessment and plan: TSH 1.2-0. - Continue levothyroxin 100, every morning Qualifiers: Hypothyroidism type: unspecified Qualified Code(s): E03.9 - Hypothyroidism , unspecified (5) Diabetes mellitus Current Visit: Yes Status: Chronic Assessment and plan: Known type 2 diabetes. Hyperglycemic this morning. Plan: -Continue Levemir 20 units subcutaneous at bedtime - Increase sliding scale medium dose. - ACHS glucose checks. Qualifiers: Diabetes mellitus type: type 2 Diabetes mellitus complication status: with kidney complications Diabetes mellitus complication detail: with chronic kidney disease Diabetes mellitus chcf insulin use: with salvage determiner use Chronic kidney disease stage: stage 3 (moderate) Qualified Code(s): E11.22 - Type 2 diabetes mellitus with diabetic chronic kidney disease; N18.3 - Chronic kidney disease, stage 3 (moderate); Z79.4 - salvage determiner (current) use of insulin (6) Essential hypertension Current Visit: No Status: Chronic Assessment and plan: Blood pressure stable. SBP 120 Plan: - Continue Norvasc 5 mg by mouth daily - Nadolol all 10 mg by mouth twice a day (7) Chronic diastolic heart failure Current Visit: Yes Status: Chronic Assessment and plan: Currently stable. Plan: - Cardio/renal diet - Salt restrictions 2 g. - Daily weights and strict ins and outs. - Monitor volume status as patient is receiving IV fluids for BLANKA. (8) Acute kidney injury superimposed on CKD Current Visit: Yes Status: Acute Assessment and plan: Acute kidney injury superimposed on stage IV kidney disease. Likely secondary to dehydration, and pneumonia. -Creatinine GFR improving Plan: - Continue IV fluids at 100 mL/hour - Avoid nephrotoxic medications and renally dose antibiotics - Monitor with am labs. (9) DVT prophylaxis Current Visit: No Status: Acute Assessment and plan: Subcutaneous heparin every 8 hours. - Subjective Interval history: Ms. Whelan 66 yo F seen and evaluated at bedside this morning. She is awake alert and oriented. She complains of continued cough with no production. She does have an appetite but continues to have a metallic taste in her mouth. She has been constipated without significant movements. She is passing flatulence. She denies nausea or vomiting, chest pain, chest pressure, palpitations. She requests MiraLAX. - Constitutional Vitals: Temp Pulse Resp BP Pulse Ox 97.9 F 68 16 138/65 100 09/16/16 06:50 09/16/16 06:50 09/16/16 06:50 09/16/16 06:50 09/16/16 06:50 General appearance: Present: cooperative, A&O X 3 - Head Head exam: Present: atraumatic, normocephalic - Eye Eye exam: Present: PERRL, conjuntiva pink, sclera anicteric Pupils: Present: PERRL - ENT ENT exam: Present: mucous membranes moist - Neck Neck exam general surgery: Present: supple, trachea midline. Absent: lymphadenopathy - Respiratory Respiratory exam: Present: CTAB. Absent: accessory muscle use, rales, rhonchi, wheezes - Cardiovascular Cardiovascular exam: Present: RRR, systolic murmur (Grade 2/6 systolic ejection murmur) - GI/Abdominal GI/Abdominal exam: Present: normal bowel sounds, soft, no peritoneal signs. Absent: distended, tenderness - Extremities Exam Extremities exam: Present: warm, radial pulses palpable and symetrical. Absent : calf tenderness, cyanotic, pedal edema - Neurological Exam Neurological exam: Present: alert, oriented X3, no focal deficits. Absent: pronater drift, facial droop, speech deficit - Psychiatric Psychiatric exam: Present: normal affect, normal mood - Skin Skin exam: Present: dry, intact Internal Medicine: Result - Labs CBC & Chem 7: 09/16/16 03:23 09/16/16 03:23 Labs: Short CBC 09/16/16 Range/Units 03:23 WBC 3.3 L (4.3-11.1) K/mcL Hgb 8.1 L (11.5-15.4) g/dL Hct 23.6 L (35.3-44.9) % Plt Count 76 L (140-400) K/mcL Neutrophils # 2.0 (1.6-8.9) K/mcL BMP 09/16/16 03:23 Sodium 137 Potassium 3.8 Chloride 106 Carbon Dioxide 23 BUN 55 H Creatinine 1.94 H Glucose 78 Calcium 8.3 L Liver Function 09/16/16 Range/Units 03:23 Total Bilirubin 0.6 (0.2-1.2) mg/dL AST 22 (5-34) Units/L ALT 9 (0-55) Units/L Alkaline Phosphatase 67 (38-126) Units/L Albumin 2.4 L (3.5-5.0) g/dL Urine 09/16/16 Range/Units 01:05 Urine Color Yellow (Yellow) Urine Clarity Clear (Clear) Urine pH 6.0 (5.0-8.0) pH Units Ur Specific [place] 1.011 (1.010-1.025) Urine Protein Negative (Neg-Trace) mg/dL Urine Glucose (UA) Normal (Normal) mg/dL Consult Discharge Plan - Plan Referrals: David Sadler MD [Primary Care Provider] - 09/23/16 2:45 pm (Please follow up as scheduled ) <Jonathan Goldberg - Last Filed: 09/16/16 15:30> Date of Encounter: 09/16/16 - Constitutional Vitals: Temp Pulse Resp BP Pulse Ox 97.8 F 61 17 128/66 100 09/16/16 11:02 09/16/16 11:02 09/16/16 11:02 09/16/16 11:02 09/16/16 11:02 Internal Medicine: Result - Labs CBC & Chem 7: 09/16/16 03:23 09/16/16 03:23 Labs: Short CBC 09/16/16 Range/Units 03:23 WBC 3.3 L (4.3-11.1) K/mcL Hgb 8.1 L (11.5-15.4) g/dL Hct 23.6 L (35.3-44.9) % Plt Count 76 L (140-400) K/mcL Neutrophils # 2.0 (1.6-8.9) K/mcL BMP 09/16/16 03:23 Sodium 137 Potassium 3.8 Chloride 106 Carbon Dioxide 23 BUN 55 H Creatinine 1.94 H Glucose 78 Calcium 8.3 L Liver Function 09/16/16 Range/Units 03:23 Total Bilirubin 0.6 (0.2-1.2) mg/dL AST 22 (5-34) Units/L ALT 9 (0-55) Units/L Alkaline Phosphatase 67 (38-126) Units/L Albumin 2.4 L (3.5-5.0) g/dL Urine 09/16/16 Range/Units 01:05 Urine Color Yellow (Yellow) Urine Clarity Clear (Clear) Urine pH 6.0 (5.0-8.0) pH Units Ur Specific [place] 1.011 (1.010-1.025) Urine Protein Negative (Neg-Trace) mg/dL Urine Glucose (UA) Normal (Normal) mg/dL - Attending Attestation I examined this patient and my medical decision-making was reviewed with the DEBRANDER/PA/Advanced Practice Nurse/Resident Physician. I agree with the documented findings, disposition and treatment plan as described except to the extent set forth below. BLANKA improving. Still cough. Will continue monitoring.
[2016-09-16] MEDS: *HR* Promethazine 25 MG/ML VIAL IVP PRN (11:19)
[2016-09-16] MEDS: Benzonatate 100 MG CAPSULE PO PRN ×3 (12:43→23:25)
[2016-09-16] MEDS ORDERED: Furosemide 20 MG/2 ML VIAL IVP ONE (15:29)
[2016-09-16] MEDS ORDERED: Levofloxacin 750 MG/150 ML 750 MG/150 ML BAG IVPB SCH (17:00)
[2016-09-16] MEDS ORDERED: Levofloxacin 500 MG/100 ML 500 MG/100 ML BAG IVPB SCH (17:00)
[2016-09-16] MEDS ORDERED: Insulin DETEMIR 100 UNIT/ML X5UNITS SQ SCH (22:14)
[2016-09-16] MEDS ORDERED: Insulin DETEMIR 100 UNIT/ML X5UNITS SQ ONE (23:31)
[2016-09-17] MEDS: *HR* Promethazine 25 MG/ML VIAL IVP PRN (05:15)
[2016-09-17] MEDS: *HR* OxyCODONE Immed Rel 5 MG TABLET PO PRN (05:16)
[2016-09-17] MEDS: *HR* Heparin 5,000 UNIT/ML VIAL SQ SCH (05:20)
[2016-09-17 05:37] LABS: Basophils % 0.4 %; Hemoglobin 8.5 g/dL (11.5-15.4); Mean Corpuscular Hemoglobin 32.1 pg (28.0-33.3); Red Blood Count 2.65 M/mcL (3.82-4.97)
[2016-09-17 05:39] LABS: Hematocrit 25.7 % (35.3-44.9); Immature Granulocytes % 3.8 % (0-4); Immature Platelets 3.3 % (1.1-6.1); Lymphocytes # 0.6 K/mcL (0.6-4.6); Lymphocytes % 26.6 %; Mean Corpuscular HGB Conc 33.1 g/dL (31.6-35.5); Mean Platelet Volume 10.2 fL (9.4-12.4); Monocytes # 0.2 K/mcL (0.0-1.3); Monocytes % 10.1 %; Neutrophils # 1.4 K/mcL (1.6-8.9); Red Cell Distribution Width 14.3 % (11.5-14.5); Segmented Neutrophils % 59.1 %
[2016-09-17 05:51] LABS: Platelet Count 73 K/mcL (140-400)
[2016-09-17 06:08] LABS: Albumin 2.4 g/dL (3.5-5.0); Albumin/Globulin Ratio 0.6 (1.1-2.2); Bilirubin,Total 0.5 mg/dL (0.2-1.2); Globulin 3.8 g/dL (2.4-3.5); Potassium 4.2 mEq/L (3.5-4.5); Total Protein 6.2 g/dL (6.0-8.3)
[2016-09-17] MEDS: FLUoxetine 20 MG CAPSULE PO SCH (08:03)
[2016-09-17] MEDS: Benzonatate 100 MG CAPSULE PO PRN (08:03)
[2016-09-17] MEDS: amLODIPine 5 MG TABLET PO SCH (08:03)
[2016-09-17] MEDS: Insulin LISPRO 300 UNITS/3 ML VIAL SQ SCH ×2 (08:04→12:11)
[2016-09-17] MEDS: Folic Acid 1 MG TABLET PO SCH (08:04)
[2016-09-17] MEDS: Nystatin POWDER 30 GM BOTTLE TP SCH (08:04)
[2016-09-17] MEDS: Lactulose Oral Soln 20 GM/30 ML UDC PO SCH (08:04)
--- NOTE | 2016-09-17 11:12 | Discharge Summary ---
<Nilson Gold - Last Filed: 09/17/16 14:16> Date of Encounter: 09/17/16 Time of Encounter: 11:06 - Discharge Diagnosis (1) Bilateral pneumonia Priority: Primary Status: Acute Qualifiers: Pneumonia type: due to unspecified organism Lung location: unspecified part of lung Qualified Code(s): J18.9 - Pneumonia, unspecified organism (2) Pancytopenia Priority: Primary Status: Chronic (3) Liver cirrhosis Priority: Primary Status: Chronic Qualifiers: Hepatic cirrhosis type: unspecified hepatic cirrhosis Ascites presence: without ascites Qualified Code(s): K74.60 - Unspecified cirrhosis of liver (4) Hypothyroidism Priority: Primary Status: Chronic Qualifiers: Hypothyroidism type: unspecified Qualified Code(s): E03.9 - Hypothyroidism , unspecified (5) Diabetes mellitus Priority: Secondary Status: Chronic Qualifiers: Diabetes mellitus type: type 2 Diabetes mellitus complication status: with kidney complications Diabetes mellitus complication detail: with chronic kidney disease Diabetes mellitus half-way insulin use: with half-way use Chronic kidney disease stage: stage 3 (moderate) Qualified Code(s): E11.22 - Type 2 diabetes mellitus with diabetic chronic kidney disease; N18.3 - Chronic kidney disease, stage 3 (moderate); 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 (6) Essential hypertension Priority: Primary Status: Chronic (7) Chronic diastolic heart failure Priority: Secondary Status: Chronic (8) Acute kidney injury superimposed on CKD Priority: Secondary Status: Acute - Discharge Medications Prescriptions: Lactulose 10 gm PO BID #15 udc Levofloxacin [Levaquin] 750 mg PO DAILY #3 tablet Home Medications: Cholecalciferol (Vitamin D3) [Vitamin D3] 50,000 unit PO WE 01/18/15 [History] FLUoxetine HCl [Prozac] 40 mg PO DAILY 01/18/15 [History] Insulin Glargine,Hum.rec.anlog [Lantus Solostar] 20 unit SQ HS 01/18/15 [History ] Insulin LISPRO [HumaLOG] 0 units SQ TIDWM 01/18/15 [History] Levothyroxine [Synthroid] 100 mcg PO DAILY 01/18/15 [History] Promethazine [Phenergan] 25 mg PO Q6HR PRN 01/18/15 [History] Rizatriptan Benzoate [Maxalt] 10 mg PO PRN PRN 01/18/15 [History] Tizanidine [Zanaflex] 4 mg PO HS 01/18/15 [History] Folic Acid 1 mg PO DAILY #30 tablet 11/27/15 [Rx] Amlodipine [Norvasc] 5 mg PO DAILY 12/10/15 [History] Nadolol [Corgard] 10 mg PO BID #60 tablet 12/14/15 [Rx] Hydroxyzine HCl 25 mg PO BID PRN 01/21/16 [History] Nystatin POWDER [Nystop] 1 appl TP BID 02/05/16 [History] Polyethylene Glycol 3350 [MiraLAX Powder Bulk 17.9 Oz] 1 scoop PO DAILY #510 gm 02/05/16 [Rx] OxyCODONE ER (12 HR) [OxyCONTIN] 30 mg PO Q12H #14 tab.er.12h 02/23/16 [Rx] OxyCODONE Immed Rel [Roxicodone 5 MG] 5 mg PO Q4HR PRN #60 tablet 02/23/16 [Rx] Amitriptyline [Elavil] 50 mg PO HS 09/14/16 [History] Furosemide [Lasix] 40 mg PO BID PRN 09/14/16 [History] Omeprazole [PriLOSEC] 20 mg PO DAILY 09/14/16 [History] Lactulose 10 gm PO BID #15 udc 09/17/16 [Rx] Levofloxacin [Levaquin] 750 mg PO DAILY #3 tablet 09/17/16 [Rx] Allergies/Adverse Reactions: Allergies Penicillins Allergy (Verified 03/03/16 15:25) Rash metoclopramide [From Reglan] Adverse Reaction (Verified 03/03/16 15:25) See Comments Date of admission: 09/14/16 22:46 Primary care physician: David Sadler MD Consults: 09/15/16 04:40 PT [Consult to Physical Therapy] [CONS] Routine Comment: Evaluate, develop and implement POC Discharging clinician: Nilson Gold Anticipated date of discharge: 09/17/16 - Patient Status Disposition: Home, Self-Care Condition: Good Functional capacity at discharge: independent ambulation Overall status at discharge: patient is progressing back to baseline - Discharge Instructions Instructions: Lactulose (By mouth), Levofloxacin (By mouth), Cirrhosis (DC), Cirrhosis (GEN), Anemia (GEN) Follow Up With: David Sadler MD [Primary Care Provider] - 09/23/16 2:45 pm (Please follow up as scheduled ) Additional Instructions: Take medications as prescribed Follow-up with her primary care provider next 3-5 days. - Diet and Activity Activity: increase activity as tolerated Diet: advance to your usual diet Interval History: Ms. Whelan is a 66 year old female with history of chronic anemia, CHF ( Chronic diastolic), diabetes, GERD, hypertension, liver disease (Cirrhosis), migraine, osteoporosis, Chronic kidney disease stage III (likely diabetic nephropathy), Hypothyroidism. She was seen by her telephone lineworker Dr. Miranda, who recommended come the emergency room for suspected pneumonia. She was found to have bilateral lung base infiltration, acute kidney injury with an initial creatinine of 2.79. She was started on Levaquin and IV fluids as she appeared clinically dehydrated. Her chronic medical conditions were reviewed and started on home medications. Her type 2 diabetes was controlled with inpatient sliding scale with a basal dose. Throughout her inpatient stay she was afebrile and the rest of her vitals were without significant findings. She demonstrated clinical improvement daily with a persistent cough. On 09/17/2016 she was seen about the patient bedside deemed stable for discharge with close follow-up with her primary care physician. She was discharged with a prescription for Levaquin every 48 hours for the remainder of her antibiotic coverage. Hospital course: Ms. Whelan is a 66 year old female - Time Spent with Patient Total time spent providing and/or coordinating discharge services: - Constitutional Vitals: Temp Pulse Resp BP Pulse Ox 98.0 F 66 17 157/73 99 09/17/16 06:53 09/17/16 06:53 09/17/16 06:53 09/17/16 06:53 09/17/16 06:53 General appearance: Present: cooperative, A&O X 3 - Head Head exam: Present: atraumatic, normocephalic - Eye Eye exam: Present: PERRL, conjuntiva pink, sclera anicteric Pupils: Present: PERRL - ENT ENT exam: Present: mucous membranes moist - Neck Neck exam general surgery: Present: supple, trachea midline. Absent: lymphadenopathy - Respiratory Respiratory exam: Present: CTAB. Absent: accessory muscle use, rales, rhonchi, wheezes - Cardiovascular Cardiovascular exam: Present: RRR, +S1, +S2. Absent: diastolic murmur, gallop, rubs, systolic murmur - GI/Abdominal GI/Abdominal exam: Present: normal bowel sounds, soft, no peritoneal signs. Absent: distended, tenderness - Extremities Exam Extremities exam: Present: warm, radial pulses palpable and symetrical. Absent : calf tenderness, cyanotic, pedal edema - Neurological Exam Neurological exam: Present: alert, oriented X3, no focal deficits. Absent: pronater drift, facial droop, speech deficit - Psychiatric Psychiatric exam: Present: normal affect, normal mood <Jonathan Goldberg - Last Filed: 09/17/16 18:09> Date of Encounter: 09/17/16 Date of admission: 09/14/16 22:46 Primary care physician: David Sadler MD Consults: 09/15/16 04:40 PT [Consult to Physical Therapy] [CONS] Routine Comment: Evaluate, develop and implement POC Hospital course: Ms. Whelan is a 66 year old female - Time Spent with Patient Total time spent providing and/or coordinating discharge services: - Constitutional Vitals: Temp Pulse Resp BP Pulse Ox 98.7 F 66 17 117/53 95 09/17/16 15:53 09/17/16 15:53 09/17/16 15:53 09/17/16 15:53 09/17/16 15:53 - Attending Attestation I examined this patient and my medical decision-making was reviewed with the LOW RAW SUGAR CUTTER/PA/Advanced Practice Nurse/Resident Physician. I agree with the documented findings, disposition and treatment plan as described except to the extent set forth below. BLANKA improved. Stable for discharge.
--- NOTE | 2016-09-17 13:28 | Physician Discharge Referral ---
Home Health/Hosp Referral Info Transfer to: Home Health Provider in Charge Post Discharge: PCP - Diagnosis (1) Bilateral pneumonia Priority: Primary Status: Acute (2) Pancytopenia Priority: Secondary Status: Chronic (3) Liver cirrhosis Priority: Secondary Status: Chronic (4) Hypothyroidism Priority: Secondary Status: Chronic (5) Diabetes mellitus Priority: Secondary Status: Chronic (6) Essential hypertension Priority: Secondary Status: Chronic (7) Chronic diastolic heart failure Priority: Secondary Status: Chronic (8) Acute kidney injury superimposed on CKD Priority: Primary Status: Acute - Respiratory Orders Smoking Cessation: Smoking cessation has been advised. For more information, call the [place] Tobacco Quit Line at 2-736-ZFDH-NOW. - Diet/Nutrition Diet/Nutrition Orders: Regular - Activity Activity Orders: Ambulate - Services Needed Following services are medically necessary services: Physical Therapy, Occupational Therapy - Transfer Medications Prescriptions: Lactulose 10 gm PO BID #15 udc Levofloxacin [Levaquin] 750 mg PO DAILY #3 tablet Home Medications: Cholecalciferol (Vitamin D3) [Vitamin D3] 50,000 unit PO WE 01/18/15 [History] FLUoxetine HCl [Prozac] 40 mg PO DAILY 01/18/15 [History] Insulin Glargine,Hum.rec.anlog [Lantus Solostar] 20 unit SQ HS 01/18/15 [History ] Insulin LISPRO [HumaLOG] 0 units SQ TIDWM 01/18/15 [History] Levothyroxine [Synthroid] 100 mcg PO DAILY 01/18/15 [History] Promethazine [Phenergan] 25 mg PO Q6HR PRN 01/18/15 [History] Rizatriptan Benzoate [Maxalt] 10 mg PO PRN PRN 01/18/15 [History] Tizanidine [Zanaflex] 4 mg PO HS 01/18/15 [History] Folic Acid 1 mg PO DAILY #30 tablet 11/27/15 [Rx] Amlodipine [Norvasc] 5 mg PO DAILY 12/10/15 [History] Nadolol [Corgard] 10 mg PO BID #60 tablet 12/14/15 [Rx] Hydroxyzine HCl 25 mg PO BID PRN 01/21/16 [History] Nystatin POWDER [Nystop] 1 appl TP BID 02/05/16 [History] Polyethylene Glycol 3350 [MiraLAX Powder Bulk 17.9 Oz] 1 scoop PO DAILY #510 gm 02/05/16 [Rx] OxyCODONE ER (12 HR) [OxyCONTIN] 30 mg PO Q12H #14 tab.er.12h 02/23/16 [Rx] OxyCODONE Immed Rel [Roxicodone 5 MG] 5 mg PO Q4HR PRN #60 tablet 02/23/16 [Rx] Amitriptyline [Elavil] 50 mg PO HS 09/14/16 [History] Furosemide [Lasix] 40 mg PO BID PRN 09/14/16 [History] Omeprazole [PriLOSEC] 20 mg PO DAILY 09/14/16 [History] Lactulose 10 gm PO BID #15 udc 09/17/16 [Rx] Levofloxacin [Levaquin] 750 mg PO DAILY #3 tablet 09/17/16 [Rx] Allergies/Adverse Reactions: Allergies Penicillins Allergy (Verified 03/03/16 15:25) Rash metoclopramide [From Reglan] Adverse Reaction (Verified 03/03/16 15:25) See Comments Certification: Further, I certify that my clinical findings support that this patient is homebound (i.e. absences from home require considerable and taxing effort and are for medical reasons or restorationism services or infrequently or short duration when for other reasons) because: Homebound Reason: Patient requires assistance of a person or device to safely leave home, Leaving home requires considerable and taxing effort due to condition Attestation: My signature below is to certify that this patient is under my care and that I, or nurse practitioner, or a physician's media assistant working with me, has a face-to -face encounter with this patient.
[2016-09-17 15:59] VITALS: BP 117/53
== END 2016-09-17 17:19 | disposition home or self-care (01) | DRG 194 ==
LOC: EMEROO 15:56 → 2ANU 15:56 → SUATTDRO 22:46
PROVIDERS: ADMIT Nurse Practitioner Family; ATTEND Internal Medicine

== ENCOUNTER 2017-08-04 11:40 | Inpatient (IN) ==
--- NOTE | 2017-08-04 11:54 | Emergency Department Note ---
Disposition Clinical Impression: Anemia Qualifiers: Anemia type: unspecified type Qualified Code(s): D64.9 - Anemia, unspecified Scalp laceration Qualifiers: Encounter type: initial encounter Qualified Code(s): S01.01XA - Laceration without foreign body of scalp, initial encounter Pelvic fracture Qualifiers: Encounter type: subsequent encounter Pelvic bone location: acetabulum Fracture type: closed Fracture morphology: transverse Fracture alignment: nondisplaced Laterality: right Fracture healing: with routine healing Qualified Code(s): S32.454D - Nondisplaced transverse fracture of right acetabulum, subsequent encounter for fracture with routine healing Disposition: Admitted As Inpatient Condition: Fair Referrals: Gary Aguayo MD [Primary Care Provider] - Forms: ED Satisfaction Letter Time of Disposition: 15:00 Fall HPI - General Chief Complaint: ED Fall Stated Complaint: Fall/ R Hip Pain Time Seen by Provider: 08/04/17 11:49 Source: patient, EMS Mode of arrival: EMS Limitations: no limitations Nursing Notes Reviewed: Yes Vital Signs Reviewed: Yes - History of Present Illness HPI Narrative: 67-year-old with a history of renal and liver failure who fell and broke her shoulder a few back was in a halfway for rehabilitation today was at home got up and of her legs could not hold her anymore and she fell striking her head on the dresser skull laceration to her right side of her head without of currently bleeding. Eyes loss of consciousness she has it is awake and alert 3. Pt Subjective Complaint: fall Onset (ago): Just [employer] Fall From: standing Fall Witnessed: yes Place Fall Occurred: home Loss of Consciousness: none Context: tripped/slipped - Related Data Home Medications Medication Instructions Recorded Confirmed FLUoxetine HCl [Prozac] 40 mg PO DAILY 01/18/15 07/12/17 Insulin LISPRO [HumaLOG] 0 units SQ TIDWM 01/18/15 07/12/17 Levothyroxine [Synthroid] 100 mcg PO DAILY 01/18/15 07/12/17 amLODIPine [Norvasc] 5 mg PO DAILY 12/10/15 07/12/17 Amitriptyline [Elavil] 50 mg PO HS 09/14/16 07/12/17 Furosemide [Lasix] 40 mg PO BID 09/14/16 07/12/17 Omeprazole [PriLOSEC] 20 mg PO DAILY 09/14/16 07/12/17 Nadolol [Corgard] 10 mg PO DAILY 10/14/16 07/12/17 Cholecalciferol (Vitamin D3) 5,000 unit PO DAILY 04/28/17 07/12/17 [Vitamin D3] Glucagon,Human Recombinant 1 mg IJ DAILY PRN 04/28/17 07/12/17 [Glucagen] Insulin Glargine,Hum.rec.anlog 18 unit SQ HS 04/28/17 07/12/17 [Basaglar Kwikpen U-100] Midodrine [ProAmatine] 5 mg PO 0800,1200,1700 04/28/17 07/12/17 OxyCODONE ER (12 HR) [OxyCONTIN] 40 mg PO QAM 04/28/17 07/12/17 OxyCODONE ER (12 HR) [OxyCONTIN] 50 mg PO QPM 04/28/17 07/12/17 Polyethylene Glycol 3350 [MiraLAX] 17 gm PO DAILY PRN 04/28/17 07/12/17 Rizatriptan Benzoate [Maxalt] 10 mg PO DAILY PRN 04/28/17 07/12/17 Ondansetron HCl [Zofran] 4 mg PO PRN PRN 06/28/17 07/12/17 Pot Chloride/Pot Bicarb/Cit AC 25 meq PO DAILY 06/28/17 07/12/17 [Potassium Cl 25 Meq Tab Eff] Previous Rx's Medication Instructions Recorded Folic Acid 1 mg PO DAILY #30 tablet 11/17/16 Clindamycin [Cleocin] 150 mg PO Q6HR #10 capsule 04/28/17 OxyCODONE Immed Rel [Roxicodone 5 5 mg PO Q6H PRN #20 tablet 04/28/17 MG] Spironolactone [Aldactone] 50 mg PO DAILY #7 tablet 06/28/17 Spironolactone [Aldactone] 100 mg PO DAILY #30 tablet 06/28/17 Lactulose [Enulose] 10 ml PO AD #210 mls 07/05/17 Allergies Allergy/AdvReac Type Severity Reaction Status Date / Time metoclopramide [From Reglan] Allergy Rash Verified 07/12/17 09:16 Penicillins Allergy Rash Verified 07/12/17 09:16 All systems ED: reviewed and negative except as stated. Constitutional: Denies: fever, chills, weakness, weight change Eyes: Reports: other (Had pain). Denies: eye pain, eye discharge, vision change ENT ED: Denies: ear pain, throat pain, dental pain, hearing loss, epistaxis, congestion, dysphagia Cardiovascular: Denies: chest pain, palpitations, dyspnea on exertion, edema, syncope Respiratory: Denies: cough, dyspnea, wheezes, hemoptysis, stridor Gastrointestinal: Denies: abdominal pain, nausea, vomiting, diarrhea, constipation, hematemesis, melena, hematochezia Genitourinary: Denies: dysuria, frequency, hematuria, discharge Musculoskeletal: Reports: back pain, arthralgia. Denies: neck pain, myalgia Integumentary: Denies: rash, abrasion, lesions Neurological: Denies: headache, weakness, numbness, paresthesias, confusion, abnormal gait, vertigo Psychiatric: Denies: anxiety, depression, suicidal thoughts, homicidal thoughts , auditory hallucinations, visual hallucinations Endocrine: Denies: fatigue Hematological/Lymphatic: Denies: easy bleeding, easy bruising Allergic/Immunologic: Denies: facial swelling, urticaria Fall PMH - Past Medical History Medical history: Reports: arthritis, CHF, diabetes, hypertension, migraine, osteoporosis, renal disease, thyroid disease, other Surgical history: Reports: appendectomy, , cholecystectomy, hysterectomy, orthopedic, other, other Psychiatric history: Reports: anxiety, depression [employer] history: Reports: no [employer] history - Social History Smoking Status: Never smoker Alcohol use: Reports: none Drug use: Reports: none Physical Exam - General Limitations: no limitations General appearance: alert, in no apparent distress - Head Head exam: normocephalic, normal inspection, other (Laceration right parietal region. No active bleeding no palpable underlying bony abnormality) - Eye Eye exam: Present: normal appearance, PERRL, EOMI - ENT ENT exam: normal exam, normal oropharynx, mucous membranes moist - Neck Neck exam: Present: normal inspection, full ROM, trachea midline - Chest Chest inspection: Present: normal inspection, symmetric chest wall rise - Respiratory Respiratory exam: Present: normal lung sounds bilaterally - Cardiovascular Cardiovascular exam: Present: regular rate, normal rhythm, normal heart sounds - Abdominal Exam Abdominal exam: Present: soft, Non-Tender. Absent: tenderness, distention, guarding, rebound, rigidity - Extremities Exam Extremities exam: Present: normal inspection, full ROM. Absent: tenderness, pedal edema - Expanded Lower Extremity Exam Neurovascular/Tendon exam: Absent: motor deficit, sensory deficit, tendon deficit Gait: not tested/not observed - Back Exam Back exam: Present: tenderness - Neurological Exam Neurological exam: Present: alert, oriented X3. Absent: motor sensory deficit - Psychiatric Psychiatric exam: Present: normal affect, normal mood - Skin Skin exam: Present: warm, dry, intact, normal color Course - Reevaluation(s) Reevaluation #1: Patient with a history of chronic liver and kidney disease who comes in after a fall. Workup included a CBC that shows a hemoglobin of 6.9. The patient does have a pelvic fracture acetabular fracture that appeared to be subacute. Consultation obtained with orthopedics and hematology. Patient will be admitted for transfusion. Time: 15:02 - Consultations Consultation #1: Discussed with , admit Time: 15:02 Vital Signs Temperature 97.8 F 08/04/17 11:46 Pulse Rate 75 08/04/17 11:46 Respiratory Rate 18 08/04/17 11:46 Blood Pressure 129/59 08/04/17 11:46 O2 Sat by Pulse Oximetry 100 08/04/17 11:46 Temperature 97.8 F 08/04/17 11:46 Pulse Rate 73 08/04/17 14:44 Respiratory Rate 14 08/04/17 14:44 Blood Pressure 126/60 08/04/17 14:44 O2 Sat by Pulse Oximetry 100 08/04/17 14:44 Oxygen Delivery Oxygen Delivery Nasal Cannula Procedures - Laceration Laceration 1 Site: scalp Side (If applicable): right Description: linear Depth: simple, single layer Local Anesthetic: lidocaine 1% Pre-repair: wound explored Skin layer closed with: dell Fall - Lab Data Lab results reviewed: Yes I reviewed the patient's lab results. Result diagrams: 08/04/17 12:04 08/04/17 12:04 Lab Results 08/04/17 08/04/17 08/04/17 Range/Units 12:04 12:04 12:04 WBC 3.6 L (4.3-11.1) K/mcL RBC 2.01 L (3.82-4.97) M/mcL Hgb 6.9 L (11.5-15.4) g/dL Hct 21.0 L (35.3-44.9) % MCV 104.5 H (83.0-100.0) fL MCH 34.3 H (28.0-33.3) pg MCHC 32.9 (31.6-35.5) g/dL RDW 15.1 H (11.5-14.5) % Plt Count 103 L (140-400) K/mcL MPV 9.9 (9.4-12.4) fL Immature Gran % 0.8 (0-4) % Seg Neutrophils % 61.1 % Lymphocytes % 25.5 % Monocytes % 12.3 % Eosinophils % 0.0 % Basophils % 0.3 % Neutrophils # 2.2 (1.6-8.9) K/mcL Lymphocytes # 0.9 (0.6-4.6) K/mcL Monocytes # 0.4 (0.0-1.3) K/mcL Eosinophils # 0.0 (0.0-0.6) K/mcL Basophils # 0.0 (0.0-0.2) K/mcL Immature Plt Fraction 2.6 (1.1-6.1) % PT (9.4-12.1) Seconds INR APTT (26.0-36.0) Seconds Sodium 135 L (136-145) mEq/L Potassium 4.7 (3.5-5.1) mEq/L Chloride 104 (98-107) mEq/L Carbon Dioxide 27 (23-29) mEq/L BUN 39 H (8-23) mg/dL Creatinine 2.15 H (0.60-1.20) mg/dL Est GFR ( Amer) 28 L (> 60) Est GFR (Non-Af Amer) 23 L (> 60) BUN/Creatinine Ratio 18 (6-26) Glucose 125 H (70-105) mg/dL Calculated Osmolality 291 (280-300) Calcium 8.4 L (8.6-10.3) mg/dL Total Bilirubin 1.0 (0.3-1.0) mg/dL Direct Bilirubin 0.4 H (0.0-0.2) mg/dL Indirect Bilirubin 0.6 (0.0-1.2) mg/dL AST 16 (13-39) Units/L ALT 6 L (7-52) Units/L Alkaline Phosphatase 115 H (34-104) Units/L Troponin I < 0.03 (< 0.04) ng/mL Serum Total Protein 6.4 (6.4-8.9) g/dL Albumin 2.7 L (3.5-5.7) g/dL Globulin 3.7 H (2.4-3.5) g/dL Albumin/Globulin Ratio 0.7 L (1.1-2.2) 08/04/17 Range/Units 12:04 WBC (4.3-11.1) K/mcL RBC (3.82-4.97) M/mcL Hgb (11.5-15.4) g/dL Hct (35.3-44.9) % MCV (83.0-100.0) fL MCH (28.0-33.3) pg MCHC (31.6-35.5) g/dL RDW (11.5-14.5) % Plt Count (140-400) K/mcL MPV (9.4-12.4) fL Immature Gran % (0-4) % Seg Neutrophils % % Lymphocytes % % Monocytes % % Eosinophils % % Basophils % % Neutrophils # (1.6-8.9) K/mcL Lymphocytes # (0.6-4.6) K/mcL Monocytes # (0.0-1.3) K/mcL Eosinophils # (0.0-0.6) K/mcL Basophils # (0.0-0.2) K/mcL Immature Plt Fraction (1.1-6.1) % PT 13.7 H (9.4-12.1) Seconds INR 1.3 APTT 32.6 (26.0-36.0) Seconds Sodium (136-145) mEq/L Potassium (3.5-5.1) mEq/L Chloride (98-107) mEq/L Carbon Dioxide (23-29) mEq/L BUN (8-23) mg/dL Creatinine (0.60-1.20) mg/dL Est GFR ( Amer) (> 60) Est GFR (Non-Af Amer) (> 60) BUN/Creatinine Ratio (6-26) Glucose (70-105) mg/dL Calculated Osmolality (280-300) Calcium (8.6-10.3) mg/dL Total Bilirubin (0.3-1.0) mg/dL Direct Bilirubin (0.0-0.2) mg/dL Indirect Bilirubin (0.0-1.2) mg/dL AST (13-39) Units/L ALT (7-52) Units/L Alkaline Phosphatase (34-104) Units/L Troponin I (< 0.04) ng/mL Serum Total Protein (6.4-8.9) g/dL Albumin (3.5-5.7) g/dL Globulin (2.4-3.5) g/dL Albumin/Globulin Ratio (1.1-2.2) - Radiology Data Radiology results reviewed: Yes I reviewed the patient's radiology results. Cervical Spine CT 08/04/17 11:49 IMPRESSION: No acute osseous injury of the cervical spine. Mediastinal lymphadenopathy and left pleural thickening unchanged from 11/04/2015. D/ / 08/04/2017 12:58:58 Hernando Piña MD / homero Interpreting Provider: Hernando Piña MD Head CT 08/04/17 11:49 IMPRESSION: Subgaleal hematoma and laceration on the right. No intracranial hemorrhage. D/ / Kendrick Kirk / Kendrick Kirk Interpreting Provider: Kendrick Kirk Lumbar Spine CT 08/04/17 11:49 IMPRESSION: 1. No acute lumbar spine abnormality. 2. Old L1 compression fracture status post vertebroplasty. 3. The spleen appears to be enlarged. There also appears to be free fluid in the visualized portion of the abdomen and pelvis. D/ / 08/04/2017 13:02:49 Ace Méndez MD / marie Interpreting Provider: Ace Méndez MD Pelvis CT 08/04/17 11:49 IMPRESSION: Callus noted about fractures of the right superior ischial and right inferior pubic rami as well as a fracture of the right acetabulum. These findings are likely subacute and/or chronic. No associated soft tissue swelling/hematoma formation is seen and the margins of the fracture lines are sclerotic. Status post previous ORIF proximal right femur. Osteopenia. Degenerative changes of the lower lumbar spine. Large amount of ascites. Extensive atherosclerotic vascular calcifications. D/ / 08/04/2017 13:03:36 Hernando Piña MD / tima Interpreting Provider: Hernando Piña MD Thoracic Spine CT 08/04/17 11:49 IMPRESSION: 1. Diffuse osteopenia. 2. No evidence of acute thoracic spine fracture. If there is concern for occult fracture, then further evaluation with MRI suggested. 3. Chronic appearing mild T7 and T9 superior endplate compression deformities. Status post T11 and L2 vertebroplasties. D/ / 08/04/2017 13:03:17 Homar Coelho MD / crystal Interpreting Provider: Homar Coelho MD
[2017-08-04] MEDS ORDERED: *HR* FentaNYL (PF) 100 MCG/2 ML VIAL IVP ONE ×3 (11:59→14:58)
[2017-08-04] MEDS ORDERED: Ondansetron 4 MG/2 ML VIAL IVP ONE (11:59)
[2017-08-04] MEDS ORDERED: *HR* FentaNYL (PF) 100 MCG/2 ML VIAL ONE (12:01)
[2017-08-04 12:26] LABS: Basophils % 0.3 %; Mean Corpuscular Volume 104.5 fL (83.0-100.0); Red Cell Distribution Width 15.1 % (11.5-14.5)
[2017-08-04 12:27] LABS: INR 1.3; Immature Granulocytes % 0.8 % (0-4); Immature Platelets 2.6 % (1.1-6.1); Lymphocytes # 0.9 K/mcL (0.6-4.6); Lymphocytes % 25.5 %; Mean Corpuscular HGB Conc 32.9 g/dL (31.6-35.5); Mean Corpuscular Hemoglobin 34.3 pg (28.0-33.3); Mean Platelet Volume 9.9 fL (9.4-12.4); Monocytes # 0.4 K/mcL (0.0-1.3); Monocytes % 12.3 %; Neutrophils # 2.2 K/mcL (1.6-8.9); Platelet Count 103 K/mcL (140-400); Prothrombin Time 13.7 Seconds (9.4-12.1); Red Blood Count 2.01 M/mcL (3.82-4.97); Segmented Neutrophils % 61.1 %
[2017-08-04 12:30] LABS: Activated Partial Thrombo Time 32.6 Seconds (26.0-36.0)
[2017-08-04] MEDS ORDERED: Lidocaine -MPF 1% 2 ML VIAL INFILT ONE (12:33)
[2017-08-04 12:35] LABS: Albumin 2.7 g/dL (3.5-5.7); Albumin/Globulin Ratio 0.7 (1.1-2.2); Bilirubin,Direct 0.4 mg/dL (0.0-0.2); Bilirubin,Indirect 0.6 mg/dL (0.0-1.2); Calcium 8.4 mg/dL (8.6-10.3); Globulin 3.7 g/dL (2.4-3.5); Potassium 4.7 mEq/L (3.5-5.1); Total Protein 6.4 g/dL (6.4-8.9)
[2017-08-04 12:48] LABS: Hemoglobin 6.9 g/dL (11.5-15.4)
--- NOTE | 2017-08-04 15:10 | Internal Med History&Physical ---
Date of Encounter: 08/04/17 Time of Encounter: 15:06 Assessment and Plan (1) Anemia Current visit: Yes Status: Acute Severe anemia hemoglobin is 6 will be transfused in emergency room from oncology is consulted Patient known to the service Qualifiers: Anemia type: unspecified type Qualified Code(s): D64.9 - Anemia, unspecified (2) Pelvic fracture Current visit: Yes Status: Acute Orthopedic is consult for follow-up and management Qualifiers: Encounter type: subsequent encounter Pelvic bone location: acetabulum Fracture type: closed Fracture morphology: transverse Fracture alignment: nondisplaced Laterality: right Fracture healing: with routine healing Qualified Code(s): S32.454D - Nondisplaced transverse fracture of right acetabulum, subsequent encounter for fracture with routine healing (3) Scalp laceration Current visit: Yes Status: Acute Sutured and stapled Qualifiers: Encounter type: initial encounter Qualified Code(s): S01.01XA - Laceration without foreign body of scalp, initial encounter (4) Chronic renal failure Current visit: No Status: Acute Chronic creatinine is at baseline Qualifiers: Chronic kidney disease stage: stage 3 (moderate) Qualified Code(s): N18.3 - Chronic kidney disease, stage 3 (moderate) (5) Diabetes mellitus Current visit: No Status: Chronic Chronic continue sliding scale and home medication Qualifiers: Diabetes mellitus type: type 2 Diabetes mellitus complication status: with kidney complications Diabetes mellitus complication detail: with chronic kidney disease Diabetes mellitus intermediate card tender insulin use: with intermediate card tender use Chronic kidney disease stage: stage 3 (moderate) Qualified Code(s): E11.22 - Type 2 diabetes mellitus with diabetic chronic kidney disease; N18.3 - Chronic kidney disease, stage 3 (moderate); Z79.4 - FPC (current) use of insulin (6) Essential hypertension Current visit: No Status: Chronic Chronic and well controlled (7) Frequent falls Current visit: No Status: Chronic Frequent falls place PTOT and consider further rehabilitation (8) Hypothyroidism Current visit: No Status: Chronic Qualifiers: Hypothyroidism type: unspecified Qualified Code(s): E03.9 - Hypothyroidism , unspecified (9) Liver cirrhosis Current visit: No Status: Chronic Chronic liver cirrhosis Qualifiers: Hepatic cirrhosis type: unspecified hepatic cirrhosis Ascites presence: with ascites Qualified Code(s): K74.60 - Unspecified cirrhosis of liver (10) Pancytopenia Current visit: No Status: Chronic Chronic and stable except for low hemoglobin Internal Medicine - H&P: HPI Chief complaint: s/p fall Admitted From: Emergency Dept Plans for Post Hospital Care: Home History of present illness: Ms. Whelan is a 67 year old female Patient with history of liver cirrhosis with periodic abdominal ascites, CK D stage III, chronic anemia, chronic pancytopenia, diabetes, hypertension, GERD, high cholesterol, hypertension, osteoporosis, hypothyroidism, depression and anxiety patient had a recent shoulder fracture and then discharged to [facility] . after rehabilitation she was sent back home today patient is feeling weak and fell at home because of weakness and leg not able to hold her come into the emergency room has some laceration on the head which was then sutured and stapled. Also has sustained fracture of the pelvis and also right acetabulum is not clear whether new fracture or subacute orthopedic surgery is consulted. Patient is awake alert stable hemoglobin is 6 the emergency room no active bleeding and she received a blood transfusion and she will be admitted for further treatment. Past Med Surg Social Fam HX - Past Medical History Medical history: arthritis, CHF, diabetes, hypertension, migraine, osteoporosis , renal disease, thyroid disease, other Psychiatric history: anxiety, depression - Past Surgical History Surgical History: appendectomy, , cholecystectomy, hysterectomy, orthopedic, other, other - Social History Smoking Status: Never smoker Smokeless Tobacco Status: No Alcohol use: none Drug use: none - Family History Father Family Member Ethnicity: Non- Living Status: Hx Family Cardiac Disorders: Yes (Heart disease, stroke) Mother Family Member Ethnicity: Non- Living Status: Hx Family Cardiac Disorders: Yes (CHF) Hx Family Respiratory Disorders: No Hx Family Cancer: Yes (Pancreatic ca) Hx Family GI Disorders: No Hx Family Endocrine Disorder: Yes (DM) Hx Family Neuromuscular Disorders: No Hx Family Neurologic Disorders: No Hx Family HEENT Disorders: No Hx Family Autoimmune Disorders: No Internal Medicine - H&P: Meds FLUoxetine HCl [Prozac] 40 mg PO DAILY 01/18/15 [History] Insulin LISPRO [HumaLOG] 0 units SQ TIDWM 01/18/15 [History] Levothyroxine [Synthroid] 100 mcg PO DAILY 01/18/15 [History] amLODIPine [Norvasc] 5 mg PO DAILY 12/10/15 [History] Amitriptyline [Elavil] 50 mg PO HS 09/14/16 [History] Furosemide [Lasix] 40 mg PO BID 09/14/16 [History] Omeprazole [PriLOSEC] 20 mg PO DAILY 09/14/16 [History] Nadolol [Corgard] 10 mg PO DAILY 10/14/16 [History] Folic Acid 1 mg PO DAILY #30 tablet 11/17/16 [Rx] Cholecalciferol (Vitamin D3) [Vitamin D3] 5,000 unit PO DAILY 04/28/17 [History] Clindamycin [Cleocin] 150 mg PO Q6HR #10 capsule 04/28/17 [Rx] Glucagon,Human Recombinant [Glucagen] 1 mg IJ DAILY PRN 04/28/17 [History] Insulin Glargine,Hum.rec.anlog [Basaglar Kwikpen U-100] 18 unit SQ HS 04/28/17 [ History] Midodrine [ProAmatine] 5 mg PO 0800,1200,1700 04/28/17 [History] OxyCODONE ER (12 HR) [OxyCONTIN] 40 mg PO QAM 04/28/17 [History] OxyCODONE ER (12 HR) [OxyCONTIN] 50 mg PO QPM 04/28/17 [History] OxyCODONE Immed Rel [Roxicodone 5 MG] 5 mg PO Q6H PRN #20 tablet 04/28/17 [Rx] Polyethylene Glycol 3350 [MiraLAX] 17 gm PO DAILY PRN 04/28/17 [History] Rizatriptan Benzoate [Maxalt] 10 mg PO DAILY PRN 04/28/17 [History] Ondansetron HCl [Zofran] 4 mg PO PRN PRN 06/28/17 [History] Pot Chloride/Pot Bicarb/Cit AC [Potassium Cl 25 Meq Tab Eff] 25 meq PO DAILY [History] Spironolactone [Aldactone] 50 mg PO DAILY #7 tablet 06/28/17 [Rx] Spironolactone [Aldactone] 100 mg PO DAILY #30 tablet 06/28/17 [Rx] Lactulose [Enulose] 10 ml PO AD #210 mls 07/05/17 [Rx] 3 Allergy/AdvReac Type Severity Reaction Status Date / Time metoclopramide [From Reglan] Allergy Rash Verified 07/12/17 09:16 Penicillins Allergy Rash Verified 07/12/17 09:16 All Systems PM: A 10-system review of systems was performed and is negative for pertinent findings except as documented above in the HPI. - Constitutional Constitutional: fatigue, lethargy - EENT Eyes: no change in vision, no discharge, no pain, no photophobia Ears: no ear discharge, no ear pain, no tinnitus Nose, mouth and throat: no dysphagia, no nasal discharge, no neck pain, no sore throat - Cardiovascular Cardiovascular ROS IM: dyspnea, syncope - Respiratory Respiratory: no cough, no dyspnea, no wheezing, no excessive phlegm production - Gastrointestinal Gastrointestinal: other - Genitourinary Genitourinary: no change in urinary stream, no dysuria, no flank pain, no hematuria - Constitutional Vitals: Temp Pulse Resp BP Pulse Ox 97.8 F 73 14 126/60 100 08/04/17 11:46 08/04/17 14:44 08/04/17 14:44 08/04/17 14:44 08/04/17 14:44 General appearance: Present: mild distress - Head Additional comments: sutured laceration dell intact - Neck Neck exam general surgery: Present: supple, trachea midline. Absent: lymphadenopathy - Respiratory Respiratory exam: Present: CTAB. Absent: accessory muscle use, rales, rhonchi, wheezes - Cardiovascular Cardiovascular exam: Present: +S1, +S2, systolic murmur - GI/Abdominal GI/Abdominal exam: Present: distended - Extremities Exam Extremities exam: Present: pedal edema Internal Med - H&P Results - Labs CBC & Chem 7: 08/04/17 12:04 08/04/17 12:04 Labs: Short CBC 08/04/17 Range/Units 12:04 WBC 3.6 L (4.3-11.1) K/mcL Hgb 6.9 L (11.5-15.4) g/dL Hct 21.0 L (35.3-44.9) % Plt Count 103 L (140-400) K/mcL Neutrophils # 2.2 (1.6-8.9) K/mcL BMP 08/04/17 12:04 Sodium 135 L Potassium 4.7 Chloride 104 Carbon Dioxide 27 BUN 39 H Creatinine 2.15 H Glucose 125 H Calcium 8.4 L Cardiac Enzymes 08/04/17 Range/Units 12:04 Troponin I < 0.03 (< 0.04) ng/mL Liver Function 08/04/17 Range/Units 12:04 Total Bilirubin 1.0 (0.3-1.0) mg/dL Direct Bilirubin 0.4 H (0.0-0.2) mg/dL AST 16 (13-39) Units/L ALT 6 L (7-52) Units/L Alkaline Phosphatase 115 H (34-104) Units/L Albumin 2.7 L (3.5-5.7) g/dL - Impressions ITS Impressions Cervical Spine CT 08/04/17 11:49 IMPRESSION: No acute osseous injury of the cervical spine. Mediastinal lymphadenopathy and left pleural thickening unchanged from 11/04/2015. D/ / 08/04/2017 12:58:58 Hernando Piña MD / [facility] Interpreting Provider: Hernando Piña MD Head CT 08/04/17 11:49 IMPRESSION: Subgaleal hematoma and laceration on the right. No intracranial hemorrhage. D/ / Kendrick Kirk / Kendrick Kirk Interpreting Provider: Kendrick Kirk Lumbar Spine CT 08/04/17 11:49 IMPRESSION: 1. No acute lumbar spine abnormality. 2. Old L1 compression fracture status post vertebroplasty. 3. The spleen appears to be enlarged. There also appears to be free fluid in the visualized portion of the abdomen and pelvis. D/ / 08/04/2017 13:02:49 Ace Méndez MD / marie Interpreting Provider: Ace Méndez MD Pelvis CT 08/04/17 11:49 IMPRESSION: Callus noted about fractures of the right superior ischial and right inferior pubic rami as well as a fracture of the right acetabulum. These findings are likely subacute and/or chronic. No associated soft tissue swelling/hematoma formation is seen and the margins of the fracture lines are sclerotic. Status post previous ORIF proximal right femur. Osteopenia. Degenerative changes of the lower lumbar spine. Large amount of ascites. Extensive atherosclerotic vascular calcifications. D/ / 08/04/2017 13:03:36 Hernando Piña MD / [facility] Interpreting Provider: Hernando Piña MD Thoracic Spine CT 08/04/17 11:49 IMPRESSION: 1. Diffuse osteopenia. 2. No evidence of acute thoracic spine fracture. If there is concern for occult fracture, then further evaluation with MRI suggested. 3. Chronic appearing mild T7 and T9 superior endplate compression deformities. Status post T11 and L2 vertebroplasties. D/ / 08/04/2017 13:03:17 Homar Coelho MD / [facility] Interpreting Provider: Homar Coelho MD
[2017-08-04] MEDS ORDERED: *HR* OxyCODONE Immed Rel 5 MG TABLET PO PRN (15:27)
[2017-08-04] MEDS ORDERED: Naloxone 0.4 MG/ML INJ IVP PRN (15:27)
[2017-08-04] MEDS ORDERED: Acetaminophen 325 MG TABLET PO PRN (15:27)
[2017-08-04] MEDS ORDERED: traMADol 50 MG TABLET PO PRN (15:27)
[2017-08-04] MEDS ORDERED: (Rizatriptan Benzoate [Maxalt] 10 MG) PO PRN (15:30)
--- NOTE | 2017-08-04 16:48 | Orthopedic Consult Note ---
Date of Encounter: 08/04/17 Time of Encounter: 16:46 Assessment and Plan (1) Pelvis fracture Current Visit: Yes Status: Acute I did discuss the diagnosis in detail the patient as well as the patient's . She has a nondisplaced fracture of the right hemipelvis and acetabulum , likely subacute. Nonoperative treatment. Pain control as needed by the primary team. My recommendation is mobilization with therapy as tolerated with touchdown weightbearing to evaluate her tolerance of therapy. I anticipate advancing weightbearing depending on symptoms. I will follow clinically and provide further recommendations depending on her progress with therapy. I defer any spine pathology to the primary team. Qualifiers: Qualified Code(s): S32.9XXA - Fracture of unspecified parts of lumbosacral spine and pelvis, initial encounter for closed fracture History of Present Illness HPI: Ms. Whelan is a 67 year old female who was admitted after a fall earlier today. She says she was getting up from the commode when she fell note is unclear if this was a mechanical fall or not. She is not able to provide any meaningful details of the injury. Nevertheless she was admitted after a lal CT demonstrated what appears to be subacute injuries to the pelvis. On my evaluation the patient complains of achy pain from "head to toe," though on further discussion with the patient this all appears to be chronic pain. She denies any numbness, tingling, or other signs or symptoms. No modifying factors. Past Med Surg Social Fam HX - Past Medical History Medical history: arthritis, CHF, diabetes, hypertension, migraine, osteoporosis , renal disease, thyroid disease, other Psychiatric history: anxiety, depression - Past Surgical History Surgical History: appendectomy, , cholecystectomy, hysterectomy, orthopedic, other, other - Social History Smoking Status: Never smoker Smokeless Tobacco Status: No Alcohol use: none Drug use: none - Family History Father Family Member Ethnicity: Non- Living Status: Hx Family Cardiac Disorders: Yes (Heart disease, stroke) Mother Family Member Ethnicity: Non- Living Status: Hx Family Cardiac Disorders: Yes (CHF) Hx Family Respiratory Disorders: No Hx Family Cancer: Yes (Pancreatic ca) Hx Family GI Disorders: No Hx Family Endocrine Disorder: Yes (DM) Hx Family Neuromuscular Disorders: No Hx Family Neurologic Disorders: No Hx Family HEENT Disorders: No Hx Family Autoimmune Disorders: No Medications and Allergies FLUoxetine HCl [Prozac] 40 mg PO DAILY 01/18/15 [History] amLODIPine [Norvasc] 5 mg PO DAILY 12/10/15 [History] Amitriptyline [Elavil] 50 mg PO HS 09/14/16 [History] Furosemide [Lasix] 40 mg PO BID 09/14/16 [History] Omeprazole [PriLOSEC] 20 mg PO DAILY 09/14/16 [History] Folic Acid 1 mg PO DAILY #30 tablet 11/17/16 [Rx] Midodrine [ProAmatine] 5 mg PO TID 04/28/17 [History] OxyCODONE ER (12 HR) [OxyCONTIN] 40 mg PO QAM 04/28/17 [History] OxyCODONE ER (12 HR) [OxyCONTIN] 50 mg PO QPM 04/28/17 [History] OxyCODONE Immed Rel [Roxicodone 5 MG] 5 mg PO Q6H PRN #20 tablet 04/28/17 [Rx] Acetaminophen [Tylenol 650mg SUPP] 650 mg RC Q4H PRN 08/04/17 [History] Bisacodyl [Dulcolax] 10 mg RC DAILY PRN 08/04/17 [History] Haloperidol 0.5 mg PO Q2H PRN 08/04/17 [History] Hyoscyamine SL [Levsin SL] 0.125 - 0.25 mg SL Q2H PRN 08/04/17 [History] LORazepam [Ativan] 0.5 mg PO Q4H PRN 08/04/17 [History] Lactulose [Enulose] 20 gm PO BID 08/04/17 [History] Morphine Oral CONC [Roxanol] 5 mg PO Q4H PRN 08/04/17 [History] Nadolol 10 mg PO BID 08/04/17 [History] Promethazine [Phenergan] 25 mg RC Q6H PRN 08/04/17 [History] 3 Allergy/AdvReac Type Severity Reaction Status Date / Time metoclopramide [From Reglan] Allergy Rash Verified 07/12/17 09:16 Penicillins Allergy Rash Verified 07/12/17 09:16 All Systems Reviewed: The remainder of the systems were reviewed and are negative Physical Exam - Constitutional Vitals: Temp Pulse Resp BP Pulse Ox 97.8 F 73 14 126/60 100 02/28/18 11:46 08/04/17 14:44 08/04/17 14:44 08/04/17 14:44 08/04/17 14:44 Constitutional -Vitals reviewed -The patient is well developed and well nourished. -Mood is pleasant. -The patient is well groomed. Psychiatric -The patient is fully alert and oriented x 3. Respiratory: -Respiratory effort normal Back -Mild tenderness throughout the lumbar spine Abdomen: -Soft abdomen -Non tender -Non distended: Pelvis -No significant tenderness over the symphysis pubis or over the iliac wings -No stability noted to the pelvis Left upper extremity: -No deformities. The overlying skin is intact. No obvious signs of acute trauma. -No tenderness to palpation throughout. -No significant pain with passive motion of the shoulder, elbow, wrist, and fingers within the limits of the bed. -Able to make an "OK" sign, cross the index and long fingers, and extend the thumb. -Sensation grossly intact to light touch throughout the median, radial, and ulnar distributions. -Radial pulse is present; Fingers have good capillary refill. Right upper extremity: -No deformities. The overlying skin is intact. No obvious signs of acute trauma. -Well-healed deltopectoral incision -No tenderness to palpation throughout. -No significant pain with passive motion of the shoulder, elbow, wrist, and fingers within the limits of the bed. -Able to make an "OK" sign, cross the index and long fingers, and extend the thumb. -Sensation grossly intact to light touch throughout the median, radial, and ulnar distributions. -Radial pulse is present; Fingers have good capillary refill. Left lower extremity: -No deformities. The overlying skin is intact. No obvious signs of acute trauma. -No tenderness to palpation throughout. -No pain with passive motion of the hip, knee, ankle, and toes within the limits of the bed. -No pain with axial loading of the thigh. -Able to dorsiflex and plantarflex the ankle and toes. -Sensation is grossly intact to light touch throughout the sural, saphenous, superficial peroneal, and deep peroneal distributions. -Toes have good capillary refill. Right lower extremity: -No deformities. The overlying skin is intact. No obvious signs of acute trauma. -No tenderness to palpation throughout. -No pain with passive motion of the hip, knee, ankle, and toes within the limits of the bed. -No pain with axial loading of the thigh. -Able to dorsiflex and plantarflex the ankle and toes. -Sensation is grossly intact to light touch throughout the sural, saphenous, superficial peroneal, and deep peroneal distributions. -Toes have good capillary refill. Diagnostic Imaging: I did personally review and interpret the CT scan of the pelvis which does show what appears to be subacute fractures of the pelvic ring, right superior pubic ramus and acetabulum. These fractures are nondisplaced. Despite the subacute nature and they are new since the CT scan obtained over the summer of last year. No definite acute findings seen on the spine CT scans. Results - Labs Result Diagrams: 08/04/17 12:04 08/04/17 12:04 Labs: Abnormal lab results WBC 3.6 K/mcL (4.3-11.1) L 08/04/17 12:04 RBC 2.01 M/mcL (3.82-4.97) L 08/04/17 12:04 Hgb 6.9 g/dL (11.5-15.4) L 08/04/17 12:04 Hct 21.0 % (35.3-44.9) L 08/04/17 12:04 MCV 104.5 fL (83.0-100.0) H 08/04/17 12:04 MCH 34.3 pg (28.0-33.3) H 08/04/17 12:04 RDW 15.1 % (11.5-14.5) H 08/04/17 12:04 Plt Count 103 K/mcL (140-400) L 08/04/17 12:04 PT 13.7 Seconds (9.4-12.1) H 08/04/17 12:04 Sodium 135 mEq/L (136-145) L 08/04/17 12:04 BUN 39 mg/dL (8-23) H 08/04/17 12:04 Creatinine 2.15 mg/dL (0.60-1.20) H 08/04/17 12:04 Est GFR ( Amer) 28 (> 60) L 08/04/17 12:04 Est GFR (Non-Af Amer) 23 (> 60) L 08/04/17 12:04 Glucose 125 mg/dL (70-105) H 08/04/17 12:04 Calcium 8.4 mg/dL (8.6-10.3) L 08/04/17 12:04 Direct Bilirubin 0.4 mg/dL (0.0-0.2) H 08/04/17 12:04 ALT 6 Units/L (7-52) L 08/04/17 12:04 Alkaline Phosphatase 115 Units/L (34-104) H 08/04/17 12:04 Albumin 2.7 g/dL (3.5-5.7) L 08/04/17 12:04 Globulin 3.7 g/dL (2.4-3.5) H 08/04/17 12:04 Albumin/Globulin Ratio 0.7 (1.1-2.2) L 08/04/17 12:04 All other labs normal. Consult Discharge Plan - Plan Referrals: Gary Aguayo MD [Primary Care Provider] -
[2017-08-04] MEDS ORDERED: *HR* OxyCODONE ER (12 HR) 10 MG TABLET PO SCH (18:00)
[2017-08-04] MEDS: Furosemide 40 MG TABLET PO SCH (20:23)
[2017-08-04] MEDS ORDERED: Insulin DETEMIR 100 UNIT/ML X5UNITS SQ SCH (21:00)
[2017-08-04] MEDS ORDERED: OXYCODONE PO SCH (21:00)
[2017-08-04] MEDS ORDERED: NON-FORMULARY MEDICATION 1 EACH EACH (Insulin Glargine,Hum.Rec.Anlog [Basaglar Kwikpen U-1 SQ SCH (21:00)
[2017-08-05] MEDS ORDERED: Dextrose Gel 15 GM/37.5 ML TUBE PO PRN ×2 (04:03)
[2017-08-05] MEDS ORDERED: D5% in Water 1,000 ML IVC PRN (04:03)
[2017-08-05] MEDS ORDERED: *HR* Dextrose 50 % in Water (Syg) 50 ML SYRINGE IVP PRN (04:03)
[2017-08-05] MEDS ORDERED: *HR* Dextrose 50 % in Water (Syg) 50 ML SYRINGE IVP ONE (04:32)
[2017-08-05 05:59] LABS: Hematocrit 20.9 % (35.3-44.9)
[2017-08-05] MEDS ORDERED: *HR* Enoxaparin 40 MG/0.4 ML SYRINGE SQ SCH (06:00)
[2017-08-05 06:01] LABS: Basophils % 0.4 %; Hemoglobin 6.7 g/dL (11.5-15.4); Immature Granulocytes % 1.8 % (0-4); Lymphocytes # 0.6 K/mcL (0.6-4.6); Lymphocytes % 22.5 %; Mean Corpuscular HGB Conc 32.1 g/dL (31.6-35.5); Mean Corpuscular Hemoglobin 33.3 pg (28.0-33.3); Mean Platelet Volume 9.8 fL (9.4-12.4); Monocytes # 0.3 K/mcL (0.0-1.3); Monocytes % 10.9 %; Neutrophils # 1.8 K/mcL (1.6-8.9); Platelet Count 101 K/mcL (140-400); Red Blood Count 2.01 M/mcL (3.82-4.97); Red Cell Distribution Width 15.2 % (11.5-14.5); Segmented Neutrophils % 64.4 %
[2017-08-05 06:24] LABS: Albumin 2.5 g/dL (3.5-5.7); Albumin/Globulin Ratio 0.7 (1.1-2.2); Calcium 8.1 mg/dL (8.6-10.3); Chol/HDL Ratio 3.3 (0-4.9); Globulin 3.7 g/dL (2.4-3.5); Magnesium 1.9 mg/dL (1.6-2.6); Potassium 4.7 mEq/L (3.5-5.1); Total Protein 6.2 g/dL (6.4-8.9)
[2017-08-05] MEDS ORDERED: *HR* OxyCODONE ER (12 HR) 40 MG TABLET PO SCH (09:00)
--- NOTE | 2017-08-05 09:56 | Internal Med Progress Note ---
Date of Encounter: 08/05/17 Time of Encounter: 09:53 - Assessment and plan (1) Anemia Current Visit: Yes Status: Acute Assessment and plan: Severe anemia and received 1 unit of blood would give another 2 units of blood Qualifiers: Anemia type: unspecified type Qualified Code(s): D64.9 - Anemia, unspecified (2) Pelvic fracture Current Visit: Yes Status: Acute Assessment and plan: Orthopedic evaluation appreciated we will continue PTOT Qualifiers: Encounter type: subsequent encounter Pelvic bone location: acetabulum Fracture type: closed Fracture morphology: transverse Fracture alignment: nondisplaced Laterality: right Fracture healing: with routine healing Qualified Code(s): S32.454D - Nondisplaced transverse fracture of right acetabulum, subsequent encounter for fracture with routine healing (3) Scalp laceration Current Visit: Yes Status: Acute Qualifiers: Encounter type: initial encounter Qualified Code(s): S01.01XA - Laceration without foreign body of scalp, initial encounter (4) Chronic renal failure Current Visit: No Status: Chronic Assessment and plan: Stable creatinine Qualifiers: Chronic kidney disease stage: stage 3 (moderate) Qualified Code(s): N18.3 - Chronic kidney disease, stage 3 (moderate) (5) Diabetes mellitus Current Visit: No Status: Chronic Assessment and plan: Patient run-on hypoglycemia probably due to by mouth intake patient has not received any insulin we will continue to monitor may need D10 if necessary Qualifiers: Diabetes mellitus type: type 2 Diabetes mellitus complication status: with kidney complications Diabetes mellitus complication detail: with chronic kidney disease 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: with chcf use Chronic kidney disease stage: stage 3 (moderate) Qualified Code(s): E11.22 - Type 2 diabetes mellitus with diabetic chronic kidney disease; N18.3 - Chronic kidney disease, stage 3 (moderate); Z79.4 - skilled nursing (current) use of insulin (6) Essential hypertension Current Visit: No Status: Chronic Assessment and plan: Chronic and well controlled (7) Frequent falls Current Visit: No Status: Chronic Assessment and plan: Recurrent fall nurse notified me the patient is a hospice and they will reconsult hospice service (8) Hypothyroidism Current Visit: No Status: Chronic Qualifiers: Hypothyroidism type: unspecified Qualified Code(s): E03.9 - Hypothyroidism , unspecified (9) Liver cirrhosis Current Visit: No Status: Chronic Assessment and plan: Chronic liver cirrhosis with intermittent ascites Will check ammonia level Qualifiers: Hepatic cirrhosis type: unspecified hepatic cirrhosis Ascites presence: with ascites Qualified Code(s): K74.60 - Unspecified cirrhosis of liver (10) Pancytopenia Current Visit: No Status: Chronic Assessment and plan: Chronic pancytopenia patient be seen by hematology oncologist We will consult GI as wellfor GI contribution to anemia - Subjective Interval history: Patient seen and examined she had received only one units of blood patient is sleepy this morning reports patient had a rough night last night with hypoglycemia this morning glucose is 163 - Constitutional Vitals: Temp Pulse Resp BP Pulse Ox 97.2 F L 73 15 117/64 99 08/05/17 08:12 08/05/17 08:12 08/05/17 08:12 08/05/17 08:12 08/05/17 08:12 General appearance: Present: mild distress - Eye Eye exam: Present: PERRL, conjuntiva pink, sclera anicteric Pupils: Present: PERRL - Neck Neck exam general surgery: Present: supple, trachea midline. Absent: lymphadenopathy - Respiratory Respiratory exam: Present: rhonchi - Cardiovascular Cardiovascular exam: Present: RRR, +S1, +S2. Absent: diastolic murmur, gallop, rubs, systolic murmur Internal Medicine: Result - Labs CBC & Chem 7: 08/05/17 05:42 08/05/17 05:42 Labs: Short CBC 08/05/17 Range/Units 05:42 WBC 2.8 L (4.3-11.1) K/mcL Hgb 6.7 L (11.5-15.4) g/dL Hct 20.9 L (35.3-44.9) % Plt Count 101 L (140-400) K/mcL Neutrophils # 1.8 (1.6-8.9) K/mcL BMP 08/05/17 05:42 Sodium 132 L Potassium 4.7 Chloride 104 Carbon Dioxide 24 BUN 38 H Creatinine 2.16 H Glucose 212 H Calcium 8.1 L Liver Function 08/05/17 Range/Units 05:42 Total Bilirubin 1.0 (0.3-1.0) mg/dL AST 16 (13-39) Units/L ALT 7 (7-52) Units/L Alkaline Phosphatase 107 H (34-104) Units/L Albumin 2.5 L (3.5-5.7) g/dL - ABG Interpretation ABG results: PT/INR, D-dimer PT 13.7 Seconds (9.4-12.1) H 08/04/17 12:04 Consult Discharge Plan - Plan Referrals: Gary Aguayo MD [Primary Care Provider] -
[2017-08-05] MEDS ORDERED: Naloxone 0.4 MG/ML INJ IVP ONE (10:05)
--- NOTE | 2017-08-05 10:17 | Oncology Inp Consult Note ---
<Eleni Landaverde - Last Filed: 08/05/17 17:58> Date of Encounter: 08/05/17 Time of Encounter: 10:17 Assessment and Plan (1) Pancytopenia Status: Chronic Assessment and plan: History detailed in history of present illness. 1. Pancytopenia in the setting of cirrhosis of the liver, CKD stage III and spelnomegaly. Previous bone marrow biopsy negative for MDS or malignancy. Last Aranesp injection received 07/23/2017, she is a patient with Dr. Rodriguez and has received transfusional support at the [facility] center. I have also provided updated laboratory workup including reticulocyte count, haptoglobin, LDH, iron panel, ferritin, B12 and folate. She is currently set to receive 2 units PRBC at this time. 2. Cirrhosis of the liver. She was being evaluated at [facility] at sometime last year for potential liver transplant. Anemia in the setting of cirrhosis, GI was consulted, I would defer to patients decision on whether she would want GI intervention now that I have learned she is a hospice patient, it is unlikely this would be pursued. She had an elevated ammonia level of 88 and a prior visit and she was started on lactulose 20 g by mouth twice a day. I do not see where this is listed on her home meds less and I am unsure if she was taking this at home. I have ordered a stat ammonia level and have restarted this dose of lactulose. She was unarousable this morning and given Narcan after which she became more alert. Awaiting stat ammonia level. She is on multiple pain medications at home and a patient with [facility] as discussed in HPI. I have consulted Dr. Lopez with palliative care for further pain medication recommendations. She is now in severe pain, I will order Toradol IV x1 and await further recommendations from palliative care. As discussed in HPI, since patients last visit at the cancer center she has decided to go home with her with hospice care. Patient wishes to return home with hospice care following her stay. - Data of Consult Patient: known to practice within the last 3 years Consult date: 08/05/17 Requesting Physician: Kari Cordon CNP Primary Care Provider: Gary Aguayo MD - Consult Narrative Reason for consult: Pancytopenia History of present illness: Ms. Whelan is a 67 year old female with past medical history significant for liver cirrhosis with periodic abdominal ascites, CK D stage III, chronic anemia , spelomegaly, chronic pancytopenia, diabetes, hypertension, GERD, high cholesterol, hypertension, osteoporosis, hypothyroidism, depression and anxiety. She is a patient of Dr. Sanders and has had prior workup for her pancytopenia. SPEP was normal. She was found to have some folate deficiency. She has had a prior bone marrow biopsy which did not show MDS or malignancy. Following her negative workup, her pancytopenia is thought to be multifactorial and result of her liver cirrhosis. She receives aranesp injections for CKD. She was recently lost to follow up while sustaining a right humerus fracture ORIF in [place] until returning to our office end of June. Since her surgery she was admitted to [facility]. At her last visit, she continued to exhibit a pancytopenia for which she had received PRBC transfusions at our facility. We had arranged for GI consultation with Dr. Roldan for potential need for EGD given her end stage cirrhosis of liver. She had clinical ascites at her prior appointment and we were working to proceed with ultrasound-guided paracentesis. This was complicated by insurance approval. She received a dose of Aranesp on 07/23/2016. Her ammonia was elevated and she was started on lactulose 20 g by mouth twice a day. She has very poor venous access which caused a complicated course and administering her needed transfusions. We had worked for port placement to this was denied due to not meeting medical necessity and we have began to arrange for midline. Since her last appointment she was discharged home from [facility] to be home with hospice. She lives at home with her . In the events leading up to her presentation to ER she had fallen at home striking her head on the dresser and sustainin a skull laceration to her right side of her head, she reports she did not lose consciousness. ER workup included a CBC that shows a hemoglobin of 6.9. The patient does have a pelvic fracture acetabular fracture that appeared to be subacute. Vitamins consulted and recommended nonoperative treatment, pain control as needed, mobilization with therapy as tolerated was touchdown weightbearing with advancement to be determined depending on symptoms. Past Med Surg Social Fam HX - Past Medical History Medical history: arthritis, CHF, diabetes, hypertension, migraine, osteoporosis , renal disease, thyroid disease, other Psychiatric history: anxiety, depression - Past Surgical History Surgical History: appendectomy, , cholecystectomy, hysterectomy, orthopedic, other, other - Social History Smoking Status: Never smoker Smokeless Tobacco Status: No Alcohol use: none Drug use: none - Family History Father Family Member Ethnicity: Non- Living Status: Hx Family Cardiac Disorders: Yes (Heart disease, stroke) Mother Family Member Ethnicity: Non- Living Status: Hx Family Cardiac Disorders: Yes (CHF) Hx Family Respiratory Disorders: No Hx Family Cancer: Yes (Pancreatic ca) Hx Family GI Disorders: No Hx Family Endocrine Disorder: Yes (DM) Hx Family Neuromuscular Disorders: No Hx Family Neurologic Disorders: No Hx Family HEENT Disorders: No Hx Family Autoimmune Disorders: No Medications and Allergies FLUoxetine HCl [Prozac] 40 mg PO DAILY 01/18/15 [History] amLODIPine [Norvasc] 5 mg PO DAILY 12/10/15 [History] Amitriptyline [Elavil] 50 mg PO HS 09/14/16 [History] Furosemide [Lasix] 40 mg PO BID 09/14/16 [History] Omeprazole [PriLOSEC] 20 mg PO DAILY 09/14/16 [History] Folic Acid 1 mg PO DAILY #30 tablet 11/17/16 [Rx] Midodrine [ProAmatine] 5 mg PO TID 04/28/17 [History] OxyCODONE ER (12 HR) [OxyCONTIN] 40 mg PO QAM 04/28/17 [History] OxyCODONE ER (12 HR) [OxyCONTIN] 50 mg PO QPM 04/28/17 [History] OxyCODONE Immed Rel [Roxicodone 5 MG] 5 mg PO Q6H PRN #20 tablet 04/28/17 [Rx] Acetaminophen [Tylenol 650mg SUPP] 650 mg RC Q4H PRN 08/04/17 [History] Bisacodyl [Dulcolax] 10 mg RC DAILY PRN 08/04/17 [History] Haloperidol 0.5 mg PO Q2H PRN 08/04/17 [History] Hyoscyamine SL [Levsin SL] 0.125 - 0.25 mg SL Q2H PRN 08/04/17 [History] LORazepam [Ativan] 0.5 mg PO Q4H PRN 08/04/17 [History] Lactulose [Enulose] 20 gm PO BID 08/04/17 [History] Morphine Oral CONC [Roxanol] 5 mg PO Q4H PRN 08/04/17 [History] Nadolol 10 mg PO BID 08/04/17 [History] Promethazine [Phenergan] 25 mg RC Q6H PRN 08/04/17 [History] 3 Allergy/AdvReac Type Severity Reaction Status Date / Time metoclopramide [From Reglan] Allergy Rash Verified 07/12/17 09:16 Penicillins Allergy Rash Verified 07/12/17 09:16 Constitutional: Present: fatigue, frequent falls, weakness. Absent: fever(s), weight loss Eyes: Absent: dry eye Nose, mouth and throat: Absent: mouth lesions Cardiovascular: Absent: chest pain, irregular heart rhythm, palpitations Respiratory: Absent: cough, dyspnea Gastrointestinal: Absent: abdominal pain, hematemesis, hematochezia, melena, nausea, vomiting Genitourinary: Absent: dysuria Musculoskeletal: Present: muscle weakness Integumentary: Present: as per HPI Neurological: Present: as per HPI, confusion, frequent falls. Absent: focal weakness, loss of vision, numbness, tingling Psychiatric: Present: as per HPI Hematologic/Lymphatic: Present: as per HPI Oncology - Exam - Constitutional Vitals: Temp Pulse Resp BP Pulse Ox 97.2 F L 73 15 117/64 99 08/05/17 08:12 08/05/17 08:12 08/05/17 08:12 08/05/17 08:12 08/05/17 08:12 Oncology - Results Labs: Short CBC 08/05/17 Range/Units 05:42 WBC 2.8 L (4.3-11.1) K/mcL Hgb 6.7 L (11.5-15.4) g/dL Hct 20.9 L (35.3-44.9) % Plt Count 101 L (140-400) K/mcL Neutrophils # 1.8 (1.6-8.9) K/mcL BMP 08/05/17 05:42 Sodium 132 L Potassium 4.7 Chloride 104 Carbon Dioxide 24 BUN 38 H Creatinine 2.16 H Glucose 212 H Calcium 8.1 L Liver Function 08/05/17 Range/Units 05:42 Total Bilirubin 1.0 (0.3-1.0) mg/dL AST 16 (13-39) Units/L ALT 7 (7-52) Units/L Alkaline Phosphatase 107 H (34-104) Units/L Albumin 2.5 L (3.5-5.7) g/dL Consult Discharge Plan - Plan Referrals: Gary Aguayo MD [Primary Care Provider] - <Willie Hameed - Last Filed: 08/05/17 19:31> Date of Encounter: 08/05/17 - Data of Consult Requesting Physician: Kari Cordon CNP Primary Care Provider: Gary Aguayo MD - Consult Narrative History of present illness: Ms. Whelan is a 67 year old female Oncology - Exam - Constitutional Vitals: Temp Pulse Resp BP Pulse Ox 98.2 F 76 16 146/66 100 08/05/17 18:45 08/05/17 18:45 08/05/17 18:45 08/05/17 18:45 08/05/17 18:45 Oncology - Results Labs: Short CBC 08/05/17 Range/Units 05:42 WBC 2.8 L (4.3-11.1) K/mcL Hgb 6.7 L (11.5-15.4) g/dL Hct 20.9 L (35.3-44.9) % Plt Count 101 L (140-400) K/mcL Neutrophils # 1.8 (1.6-8.9) K/mcL BMP 08/05/17 05:42 Sodium 132 L Potassium 4.7 Chloride 104 Carbon Dioxide 24 BUN 38 H Creatinine 2.16 H Glucose 212 H Calcium 8.1 L Liver Function 08/05/17 Range/Units 05:42 Total Bilirubin 1.0 (0.3-1.0) mg/dL AST 16 (13-39) Units/L ALT 7 (7-52) Units/L Alkaline Phosphatase 107 H (34-104) Units/L Albumin 2.5 L (3.5-5.7) g/dL - Attending Attestation I have seen and examined this patient and agree with Akhil's assessment. Ms. Whelan is an unfortunate and very pleasant 67-year-old woman who has advanced cirrhosis. She fell yesterday and was found to be anemic prompting hospitalization. Her pancytopenia is sequelae of cirrhosis. As she does have anemia, we have recommended 2 units packed blood cells. She is currently receiving her transfusion. From our perspective, she may be discharged back home with hospice upon completion her transfusion unclamps from the hospitalist service. We would recommend a blood transfusion only if symptomatic while on hospice. While hospitalized, which transfused for hemoglobin of less than 7. We will otherwise sign-Off. Do not hesitate to contact us with concerns or questions.
[2017-08-05] MEDS ORDERED: Ketorolac 15 MG/ML VIAL IVP ONE (11:21)
[2017-08-05] MEDS ORDERED: 0.9 % Sodium Chloride 250 ML ONE (11:21)
[2017-08-05 12:24] LABS: Immature Reticulocyte % 7.3 % (11.0-38.0); Retculocyte # 0.06 M/mcL (0.05-0.10); Reticulocyte % 2.6 % (1.6-2.8)
[2017-08-05 13:38] LABS: % Iron Saturation 80 % (15-50); Iron 116 mcg/dL (50-170); Lactate Dehydrogenase 217 Units/L (140-271); Transferrin 103 mg/dL (203-362)
[2017-08-05 15:49] LABS: Vitamin B12 666 pg/mL (250-1100)
--- NOTE | 2017-08-05 15:51 | Palliative - Consult Note ---
Date of Encounter: 08/05/17 Time of Encounter: 15:25 - Assessment and Plan (1) Cancer associated pain Current Visit: Yes Status: Acute Assessment and plan: Patient was lethargic this am and did respond to Narcan. Upon review of medication record, she had only her pm dose of Oxycontin 08/04, and did not recieve anything else for pain throughout the night. However, does have elevated ammonia level, had hypoglycemic episode early am, and has decreasing renal function. Believe that combination of above led to altered status. Currently alert and communicated, although appears still slightly confused and inappropriately answers questions at times. She currently takes Oxycontin 90mg/ day. Will decrease to 30mg every 12 hours for total of 60mg/day. Also, her home dose of Oxycodone for breakthrough is listed as 5mg, but is currently ordered 10mg. Will decrease to 5mg and monitor closely. Will f/u in am. (2) Counseling regarding advanced care planning and goals of care Current Visit: Yes Status: Acute Assessment and plan: Patient was recently enrolled in [facility] after discharging from [facility]. However, she does remain full code and family at bedside states this has not been discussed. Patient states that her refuses to discuss and "thinks I'm going to live forever". We discussed that this is her decision, and that resuscitation/life prolonging measures with a terminal illness may not improve her comfort or quality of life. Patient verbalized understanding, however, does still appear somewhat altered mental status. Discussed with sister and daughter n law at bedside, that these discussions are important and her needs to be involved. They verbalized understanding. Will continue to monitor and work with symptom management. Will f/u tomorrow. (3) Acute on chronic renal insufficiency Current Visit: No Status: Acute (4) Liver cirrhosis Current Visit: No Status: Chronic Qualifiers: Hepatic cirrhosis type: unspecified hepatic cirrhosis Ascites presence: with ascites Qualified Code(s): K74.60 - Unspecified cirrhosis of liver (5) Pancytopenia Current Visit: No Status: Chronic Assessment and plan: Oncology following closely Palliative-CN HPI - Data of Consult Consult date: 08/05/17 Requesting Physician: Kari Cordon CNP Primary Care Provider: Gary Aguayo MD - Consult Narrative History of present illness: Ms. Whelan is a 67 year old femalewho presented after fall at home with head laceration. Questionable new pelvic fracture and ortho was consulted. She has medical history of pancytopenia (followed by [facility]), Cirrhosis, Ascites, CKD stage III, chronic anemia, diabetes, hypertension, GERD, high cholesterol, hypertension, osteoporosis, hypothyroidism, depression and anxiety. Patient had a recent shoulder fracture and then discharged to care home for rehabilitation . She was recently in [facility] for rehabilitation stay, however, recently transitioned home with [facility]. She is full code. Lives with at home, but has supportive family and states there is always someone there with her. Upon my visit, she is awake and alert - knows she is in hospital, but does not know which one. She has daughter n law and sister at bedside. has left for the afternoon. She answers some questions inappropriately, and appears to have trouble finding her words. Difficult to keep focused on conversation. She appears in no distress, does state that she has "pain all over". She cannot describe any characteristics of her pain at this time. Denies any n/v and asking for soup. States did have some shortness of breath, but that has improved. On room air. CC: Kari Cordon, EVA Past Med Surg Social Fam HX - Past Medical History Medical history: arthritis, CHF, diabetes, hypertension, migraine, osteoporosis , renal disease, thyroid disease, other Psychiatric history: anxiety, depression - Past Surgical History Surgical History: appendectomy, , cholecystectomy, hysterectomy, orthopedic, other, other - Social History Smoking Status: Never smoker Smokeless Tobacco Status: No Alcohol use: none Drug use: none - Family History Father Family Member Ethnicity: Non- Living Status: Hx Family Cardiac Disorders: Yes (Heart disease, stroke) Mother Family Member Ethnicity: Non- Living Status: Hx Family Cardiac Disorders: Yes (CHF) Hx Family Respiratory Disorders: No Hx Family Cancer: Yes (Pancreatic ca) Hx Family GI Disorders: No Hx Family Endocrine Disorder: Yes (DM) Hx Family Neuromuscular Disorders: No Hx Family Neurologic Disorders: No Hx Family HEENT Disorders: No Hx Family Autoimmune Disorders: No Medications and Allergies FLUoxetine HCl [Prozac] 40 mg PO DAILY 01/18/15 [History] amLODIPine [Norvasc] 5 mg PO DAILY 12/10/15 [History] Amitriptyline [Elavil] 50 mg PO HS 09/14/16 [History] Furosemide [Lasix] 40 mg PO BID 09/14/16 [History] Omeprazole [PriLOSEC] 20 mg PO DAILY 09/14/16 [History] Folic Acid 1 mg PO DAILY #30 tablet 11/17/16 [Rx] Midodrine [ProAmatine] 5 mg PO TID 04/28/17 [History] OxyCODONE ER (12 HR) [OxyCONTIN] 40 mg PO QAM 04/28/17 [History] OxyCODONE ER (12 HR) [OxyCONTIN] 50 mg PO QPM 04/28/17 [History] OxyCODONE Immed Rel [Roxicodone 5 MG] 5 mg PO Q6H PRN #20 tablet 04/28/17 [Rx] Acetaminophen [Tylenol 650mg SUPP] 650 mg RC Q4H PRN 08/04/17 [History] Bisacodyl [Dulcolax] 10 mg RC DAILY PRN 08/04/17 [History] Haloperidol 0.5 mg PO Q2H PRN 08/04/17 [History] Hyoscyamine SL [Levsin SL] 0.125 - 0.25 mg SL Q2H PRN 08/04/17 [History] LORazepam [Ativan] 0.5 mg PO Q4H PRN 08/04/17 [History] Lactulose [Enulose] 20 gm PO BID 08/04/17 [History] Morphine Oral CONC [Roxanol] 5 mg PO Q4H PRN 08/04/17 [History] Nadolol 10 mg PO BID 08/04/17 [History] Promethazine [Phenergan] 25 mg RC Q6H PRN 08/04/17 [History] 3 Allergy/AdvReac Type Severity Reaction Status Date / Time metoclopramide [From Reglan] Allergy Rash Verified 07/12/17 09:16 Penicillins Allergy Rash Verified 07/12/17 09:16 ROS unobtainable: due to mental status Palliative Care-Exam - Constitutional Vitals: Temp Pulse Resp BP Pulse Ox 98.1 F 73 18 128/64 97 08/05/17 12:30 08/05/17 12:30 08/05/17 12:30 08/05/17 12:30 08/05/17 12:30 General appearance: Present: no acute distress - Head Head Exam: Present: normal inspection, normocephalic Additional comments: Chuck to scalp laceration D/I - Eye Eye exam: Present: normal appearance - Respiratory Respiratory exam: Present: decreased breath sounds Additional comments: Faint crackles bilateral lower lobes. - Cardiovascular Cardiovascular exam: Present: +S1 - GI/Abdominal Exam GI/Abdominal exam: Present: distended, normal bowel sounds - Extremities Exam Extremities exam: Present: normal capillary refill, normal inspection - Neurological Exam Neurological exam: Present: alert Additional comments: Oriented to name, knows she is in hospital, but couldn't remember which one. - Psychiatric Psychiatric exam: Present: normal affect, normal mood - Skin Skin exam: Present: dry, warm Internal Medicine - CN: Reslt - Labs CBC & Chem 7: 08/05/17 05:42 08/05/17 05:42 Labs: Short CBC 08/05/17 Range/Units 05:42 WBC 2.8 L (4.3-11.1) K/mcL Hgb 6.7 L (11.5-15.4) g/dL Hct 20.9 L (35.3-44.9) % Plt Count 101 L (140-400) K/mcL Neutrophils # 1.8 (1.6-8.9) K/mcL BMP 08/05/17 05:42 Sodium 132 L Potassium 4.7 Chloride 104 Carbon Dioxide 24 BUN 38 H Creatinine 2.16 H Glucose 212 H Calcium 8.1 L Liver Function 08/05/17 Range/Units 05:42 Total Bilirubin 1.0 (0.3-1.0) mg/dL AST 16 (13-39) Units/L ALT 7 (7-52) Units/L Alkaline Phosphatase 107 H (34-104) Units/L Albumin 2.5 L (3.5-5.7) g/dL - ABG Interpretation ABG results: PT/INR, D-dimer PT 13.7 Seconds (9.4-12.1) H 08/04/17 12:04 Consult Discharge Plan - Plan Referrals: Gary Aguayo MD [Primary Care Provider] - Palliative Quality Palliative Quality: Screen for Code Status: Yes, Screen for Goals of Care: NA ( Will further discuss, pt with altered mental status), Screen for Pain: Yes, If Pain Regimen Started, Initiate Bowel Regimen: NA, Screen for Nausea/Vomitting: Yes
[2017-08-05 15:52] LABS: Folate > 22.3 ng/mL (3.0-16.0)
--- NOTE | 2017-08-05 16:39 | Gastroenterology Consult Note ---
<Keysha Bazzi M - Last Filed: 08/05/17 16:34> Date of Encounter: 08/05/17 Time of Encounter: 12:15 - Assessment and plan (1) Pancytopenia Current Visit: No Status: Chronic Assessment and plan: Pt has chronic anemia, baseline around 8, currently 6.7. She has been tranfused 2 units PRBCs, and is being transfused a third. She has pelvic fracture. She needs colonoscopy and EGD but is a very poor candidate. Will keep NPO after midnight and hold lovenox. She has been seen by oncology for pancytopenia and palliative care. (2) Liver cirrhosis Current Visit: No Status: Chronic Assessment and plan: chronic, may be the cause of pancytopenia, she has history of hepatic encephalopathy and is on laculose Qualifiers: Hepatic cirrhosis type: unspecified hepatic cirrhosis Ascites presence: with ascites Qualified Code(s): K74.60 - Unspecified cirrhosis of liver - Time Spent With Patient Total time spent is greater than 50% in coordination of care (as documented) at patient's floor/unit and/or counseling patient: GI History of Present Illness - Data of Consult Patient: known to practice within the last 3 years Consult date: 08/05/17 Requesting Physician: Kari Cordon CNP - Consult Narrative Reason for consult: anemia History of present illness: Ms. Whelan is a 67 year old female with PMHx of cirrhosis, HTN, DM, and frequent falls at home. She had recent shoulder fracture and was discharged to longterm for rehabilitation. After rehabilitation she was sent back home. She presented with weakness and fall at today patient is feeling weak and fall at home, from which she sustained a laceration on the head and a pelvic fracture. She was found to have a hemoglobin of 6. She has been transfused 2 units and has 1 unit transfusing at this time. She is lethargic and very difficult to answer questions on exam. No active bleeding has been reported. Procedures: 04/22 EGD/colonoscopy at [facility] bile staining, inflammation mo bleeding mucosa, melanosis coli EGD 04/10/2014, Gastritis, no varices. NSAIDs: None Anticoagulation: None Past Med Surg Social Fam HX - Past Medical History Medical history: arthritis, CHF, diabetes, hypertension, migraine, osteoporosis , renal disease, thyroid disease, other Psychiatric history: anxiety, depression - Past Surgical History Surgical History: appendectomy, , cholecystectomy, hysterectomy, orthopedic, other, other - Social History Smoking Status: Never smoker Smokeless Tobacco Status: No Alcohol use: none Drug use: none - Family History Father Family Member Ethnicity: Non- Living Status: Hx Family Cardiac Disorders: Yes (Heart disease, stroke) Mother Family Member Ethnicity: Non- Living Status: Hx Family Cardiac Disorders: Yes (CHF) Hx Family Respiratory Disorders: No Hx Family Cancer: Yes (Pancreatic ca) Hx Family GI Disorders: No Hx Family Endocrine Disorder: Yes (DM) Hx Family Neuromuscular Disorders: No Hx Family Neurologic Disorders: No Hx Family HEENT Disorders: No Hx Family Autoimmune Disorders: No ROS unobtainable: due to mental status - Constitutional Vitals: Temp Pulse Resp BP Pulse Ox 98 F 79 16 151/64 97 08/05/17 16:20 08/05/17 16:20 08/05/17 16:20 08/05/17 16:20 08/05/17 16:20 Exam: CONSTITUTIONAL:~very lethargic, no acute distress.~HEAD:~normocephalic, laceration stapled.~EYES:~no jaundice.~NECK:~no obvious swelling.~HEART:~ regular rate and rhythm, no murmurs.~LUNGS:~bilateral good air entry.~ABDOMEN:~ non distended, soft, non tender, no masses pulpable, no organomegaly.~RECTAL EXAM:~Deferred.~EXTREMITIES:~no clubbing, cyanosis, 1+ BLE edema, .~SKIN:~ pallor noted, no stigmata of chronic liver disease.~NEUROLOGIC:~no obvious focal defect.~~~~ Results - Labs CBC & Chem 7: 08/05/17 05:42 08/05/17 05:42 Labs: Last Result Calcium 8.1 mg/dL (8.6-10.3) L 08/05/17 05:42 Iron 116 mcg/dL (50-170) 08/05/17 12:02 % Saturation 80 % (15-50) H 08/05/17 12:02 Transferrin 103 mg/dL (203-362) L 08/05/17 12:02 Troponin I < 0.03 ng/mL (< 0.04) 08/04/17 12:04 Triglycerides 48 mg/dL (< 150) 08/05/17 05:42 Vitamin B12 666 pg/mL (250-1100) 08/05/17 12:02 Folate > 22.3 ng/mL (3.0-16.0) H 08/05/17 12:02 Entire Visit Hgb 6.7 g/dL (11.5-15.4) L 08/05/17 05:42 Hct 20.9 % (35.3-44.9) L 08/05/17 05:42 PT 13.7 Seconds (9.4-12.1) H 08/04/17 12:04 Total Bilirubin 1.0 mg/dL (0.3-1.0) 08/05/17 05:42 AST 16 Units/L (13-39) 08/05/17 05:42 ALT 7 Units/L (7-52) 08/05/17 05:42 Ammonia 85 mcmol/L (16-53) H 08/05/17 10:15 Folate > 22.3 ng/mL (3.0-16.0) H 08/05/17 12:02 - ABG ABG results: PT/INR, D-dimer PT 13.7 Seconds (9.4-12.1) H 08/04/17 12:04 Consult Discharge Plan - Plan Referrals: Gary Aguayo MD [Primary Care Provider] - <Janet Roldan - Last Filed: 08/05/17 22:13> Date of Encounter: 08/05/17 Time of Encounter: 18:00 - Time Spent With Patient Total time spent is greater than 50% in coordination of care (as documented) at patient's floor/unit and/or counseling patient: GI History of Present Illness - Data of Consult Requesting Physician: Kari Cordon CNP - Consult Narrative History of present illness: Ms. Whelan is a 67 year old female - Constitutional Vitals: Temp Pulse Resp BP Pulse Ox 98.2 F 76 16 146/66 100 08/05/17 18:45 08/05/17 18:45 08/05/17 18:45 08/05/17 18:45 08/05/17 18:45 Results - Labs CBC & Chem 7: 08/05/17 05:42 08/05/17 05:42 Labs: Last Result Calcium 8.1 mg/dL (8.6-10.3) L 08/05/17 05:42 Iron 116 mcg/dL (50-170) 08/05/17 12:02 % Saturation 80 % (15-50) H 08/05/17 12:02 Transferrin 103 mg/dL (203-362) L 08/05/17 12:02 Ferritin 900 ng/ml (10-120) H 08/05/17 12:02 Troponin I < 0.03 ng/mL (< 0.04) 08/04/17 12:04 Triglycerides 48 mg/dL (< 150) 08/05/17 05:42 Vitamin B12 666 pg/mL (250-1100) 08/05/17 12:02 Folate > 22.3 ng/mL (3.0-16.0) H 08/05/17 12:02 Entire Visit Hgb 6.7 g/dL (11.5-15.4) L 08/05/17 05:42 Hct 20.9 % (35.3-44.9) L 08/05/17 05:42 PT 13.7 Seconds (9.4-12.1) H 08/04/17 12:04 Ferritin 900 ng/ml (10-120) H 08/05/17 12:02 Total Bilirubin 1.0 mg/dL (0.3-1.0) 08/05/17 05:42 AST 16 Units/L (13-39) 08/05/17 05:42 ALT 7 Units/L (7-52) 08/05/17 05:42 Ammonia 85 mcmol/L (16-53) H 08/05/17 10:15 Folate > 22.3 ng/mL (3.0-16.0) H 08/05/17 12:02 - ABG ABG results: PT/INR, D-dimer PT 13.7 Seconds (9.4-12.1) H 08/04/17 12:04 - Attending Attestation I examined this patient and my medical decision-making was reviewed with the associate professor of literature. I agree with the documented findings, disposition and treatment plan as described except to the extent set forth below. pt with cirrhosis with anemia, no over bleeding. Pt with other multiple issues, on hospice. Rec: supportive care. F/u with hematology. No plan for scopes
[2017-08-05] MEDS: Furosemide 40 MG TABLET PO SCH ×2 (18:10→21:04)
[2017-08-05] MEDS: Potassium Effervescent 25 MEQ TABLET.EFF PO SCH (18:10)
[2017-08-05] MEDS: Folic Acid 1 MG TABLET PO SCH (18:10)
[2017-08-05] MEDS: amLODIPine 5 MG TABLET PO SCH (18:10)
[2017-08-05] MEDS: FLUoxetine 20 MG CAPSULE PO SCH (18:11)
[2017-08-05] MEDS: Lactulose Oral Soln 20 GM/30 ML UDC PO SCH ×2 (18:11→21:03)
[2017-08-05] MEDS: Cholecalciferol (D-3) 1,000 UNIT TABLET PO SCH (18:11)
[2017-08-05] MEDS: *HR* OxyCODONE ER (12 HR) 10 MG TABLET PO SCH (18:13)
[2017-08-05 19:47] LABS: Ferritin 900 ng/ml (10-120)
[2017-08-05] MEDS ORDERED: *HR* Promethazine 25 MG/ML VIAL IVP PRN (20:15)
[2017-08-05] MEDS: *HR* OxyCODONE Immed Rel 5 MG TABLET PO PRN (21:03)
[2017-08-06 02:13] LABS: Basophils % 0.3 %; Mean Corpuscular Hemoglobin 32.7 pg (28.0-33.3); Red Blood Count 3.18 M/mcL (3.82-4.97)
[2017-08-06 02:15] LABS: Hematocrit 30.7 % (35.3-44.9); Hemoglobin 10.4 g/dL (11.5-15.4); Immature Granulocytes % 0.8 % (0-4); Immature Platelets 2.7 % (1.1-6.1); Lymphocytes # 0.8 K/mcL (0.6-4.6); Lymphocytes % 22.1 %; Mean Corpuscular HGB Conc 33.9 g/dL (31.6-35.5); Mean Corpuscular Volume 96.5 fL (83.0-100.0); Mean Platelet Volume 10.1 fL (9.4-12.4); Monocytes # 0.5 K/mcL (0.0-1.3); Monocytes % 12.9 %; Neutrophils # 2.4 K/mcL (1.6-8.9); Red Cell Distribution Width 16.6 % (11.5-14.5); Segmented Neutrophils % 63.9 %
[2017-08-06 02:16] LABS: Platelet Count 82 K/mcL (140-400)
[2017-08-06] MEDS ORDERED: *HR* Enoxaparin 30 MG/0.3 ML SYRINGE SQ SCH (06:00)
[2017-08-06] MEDS: *HR* OxyCODONE ER (12 HR) 10 MG TABLET PO SCH ×2 (06:01→19:06)
--- NOTE | 2017-08-06 09:15 | Internal Med Progress Note ---
Date of Encounter: 08/06/17 Time of Encounter: 09:13 - Assessment and plan (1) Anemia Current Visit: Yes Status: Acute Assessment and plan: Chronic pancytopenia baseline usually 8 there was down to 6 now 10 after transfusion GI evaluation appreciated patient will be undergoing EGD and colonoscopy Qualifiers: Anemia type: unspecified type Qualified Code(s): D64.9 - Anemia, unspecified (2) Pelvic fracture Current Visit: Yes Status: Acute Assessment and plan: Patient has a pelvic fracture by orthopedic no surgery plan to continue PTOT Qualifiers: Encounter type: subsequent encounter Pelvic bone location: acetabulum Fracture type: closed Fracture morphology: transverse Fracture alignment: nondisplaced Laterality: right Fracture healing: with routine healing Qualified Code(s): S32.454D - Nondisplaced transverse fracture of right acetabulum, subsequent encounter for fracture with routine healing (3) Scalp laceration Current Visit: Yes Status: Acute Assessment and plan: Laceration healing properly Qualifiers: Encounter type: initial encounter Qualified Code(s): S01.01XA - Laceration without foreign body of scalp, initial encounter (4) Chronic renal failure Current Visit: No Status: Chronic Assessment and plan: Creatinine is stable remains at baseline Qualifiers: Chronic kidney disease stage: stage 3 (moderate) Qualified Code(s): N18.3 - Chronic kidney disease, stage 3 (moderate) (5) Diabetes mellitus Current Visit: No Status: Chronic Assessment and plan: Chronic running low sugar Qualifiers: Diabetes mellitus type: type 2 Diabetes mellitus complication status: with kidney complications Diabetes mellitus complication detail: with chronic kidney disease Diabetes mellitus usp insulin use: with oil 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 use Chronic kidney disease stage: stage 3 (moderate) Qualified Code(s): E11.22 - Type 2 diabetes mellitus with diabetic chronic kidney disease; N18.3 - Chronic kidney disease, stage 3 (moderate); 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 (6) Essential hypertension Current Visit: No Status: Chronic Assessment and plan: Chronic and well controlled (7) Frequent falls Current Visit: No Status: Chronic Assessment and plan: Recurrent fall due to generalized weakness and contribution of severe anemia (8) Hypothyroidism Current Visit: No Status: Chronic Qualifiers: Hypothyroidism type: unspecified Qualified Code(s): E03.9 - Hypothyroidism , unspecified (9) Liver cirrhosis Current Visit: No Status: Chronic Assessment and plan: Chronic ammonia level 85 lactulose resumed Qualifiers: Hepatic cirrhosis type: unspecified hepatic cirrhosis Ascites presence: with ascites Qualified Code(s): K74.60 - Unspecified cirrhosis of liver (10) Pancytopenia Current Visit: No Status: Chronic Assessment and plan: Chronic oncology following - Subjective Interval history: Patient seen and examined she had received only one units of blood patient is sleepy this morning reports patient had a rough night last night with hypoglycemia this morning glucose is 163 This morning patient is awake, alert says she feels weak no specific complaint glucose was 98 patient is nothing by mouth for EGD and colonoscopy today GI and oncology evaluation appreciated hemoglobin is 10 after transfusion - Constitutional Vitals: Temp Pulse Resp BP Pulse Ox 98.6 F 73 16 139/63 100 08/06/17 06:58 08/06/17 06:58 08/06/17 06:58 08/06/17 06:58 08/06/17 06:58 General appearance: Present: mild distress - Eye Eye exam: Present: PERRL, conjuntiva pink, sclera anicteric Pupils: Present: PERRL - Neck Neck exam general surgery: Present: supple, trachea midline. Absent: lymphadenopathy - Respiratory Respiratory exam: Present: rhonchi - Cardiovascular Cardiovascular exam: Present: RRR, +S1, +S2. Absent: diastolic murmur, gallop, rubs, systolic murmur Internal Medicine: Result - Labs CBC & Chem 7: 08/06/17 01:35 08/05/17 05:42 Labs: Short CBC 08/06/17 Range/Units 01:35 WBC 3.7 L (4.3-11.1) K/mcL Hgb 10.4 L D (11.5-15.4) g/dL Hct 30.7 L (35.3-44.9) % Plt Count 82 L (140-400) K/mcL Neutrophils # 2.4 (1.6-8.9) K/mcL - ABG Interpretation ABG results: PT/INR, D-dimer PT 13.7 Seconds (9.4-12.1) H 08/04/17 12:04 Consult Discharge Plan - Plan Referrals: Gary Aguayo MD [Primary Care Provider] -
[2017-08-06] MEDS: *HR* OxyCODONE Immed Rel 5 MG TABLET PO PRN ×2 (09:52→19:02)
[2017-08-06] MEDS ORDERED: Ondansetron 4 MG/2 ML VIAL IVP PRN (11:21)
--- NOTE | 2017-08-06 11:32 | Palliative Progress Note ---
Date of Encounter: 08/06/17 Time of Encounter: 11:00 - Assessment and plan (1) Nausea Current Visit: Yes Status: Acute Assessment and plan: Will D/C IV Promethezine, see if Ondansetron will be less sedation for her. (2) Cancer associated pain Current Visit: Yes Status: Acute Assessment and plan: Nurse states she still has been lethargic - Oxycontin has been held. She has received a couple of doses of Oxycodone and tolerated well. Only complaint at this time is a headache. She is NPO for scopes. Will not make any changes regarding medication regimen today - will recheck over weekend. (3) Counseling regarding advanced care planning and goals of care Current Visit: Yes Status: Acute Assessment and plan: Discussion with pt/ and sister n law regarding goals of care. They still desire to resume [facility] upon discharge. Discussed code status at length - encourage pt and to discuss, but at this time she remains full code. (4) Acute on chronic renal insufficiency Current Visit: No Status: Acute (5) Liver cirrhosis Current Visit: No Status: Chronic Qualifiers: Hepatic cirrhosis type: unspecified hepatic cirrhosis Ascites presence: with ascites Qualified Code(s): K74.60 - Unspecified cirrhosis of liver (6) Pancytopenia Current Visit: No Status: Chronic - Time Spent With Patient Total time spent is greater than 50% in coordination of care (as documented) at patient's floor/unit and/or counseling patient: - Subjective Interval history: Patient awake and alert. Nicolas at bedside. Noted pt will be taken for endoscopies today per GI. She currently is comfortable except for headache. Voices no concerns. - Constitutional Vitals: Abnormal lab results WBC 3.7 K/mcL (4.3-11.1) L 08/06/17 01:35 RBC 3.18 M/mcL (3.82-4.97) L 08/06/17 01:35 Hgb 10.4 g/dL (11.5-15.4) L D 08/06/17 01:35 Hct 30.7 % (35.3-44.9) L 08/06/17 01:35 RDW 16.6 % (11.5-14.5) H 08/06/17 01:35 Plt Count 82 K/mcL (140-400) L 08/06/17 01:35 Immature Retic Fraction 7.3 % (11.0-38.0) L 08/05/17 12:02 Retic Hgb Equivalent 36.7 pg (28.61-36.33) H 08/05/17 12:02 PT 13.7 Seconds (9.4-12.1) H 08/04/17 12:04 Sodium 132 mEq/L (136-145) L 08/05/17 05:42 BUN 38 mg/dL (8-23) H 08/05/17 05:42 Creatinine 2.16 mg/dL (0.60-1.20) H 08/05/17 05:42 Est GFR ( Amer) 27 (> 60) L 08/05/17 05:42 Est GFR (Non-Af Amer) 23 (> 60) L 08/05/17 05:42 Glucose 212 mg/dL (70-105) H 08/05/17 05:42 POC Glucose 108 (58-89) H 08/05/17 20:21 Calcium 8.1 mg/dL (8.6-10.3) L 08/05/17 05:42 % Saturation 80 % (15-50) H 08/05/17 12:02 Transferrin 103 mg/dL (203-362) L 08/05/17 12:02 Ferritin 900 ng/ml (10-120) H 08/05/17 12:02 Direct Bilirubin 0.4 mg/dL (0.0-0.2) H 08/04/17 12:04 Alkaline Phosphatase 107 Units/L (34-104) H 08/05/17 05:42 Ammonia 85 mcmol/L (16-53) H 08/05/17 10:15 Serum Total Protein 6.2 g/dL (6.4-8.9) L 08/05/17 05:42 Albumin 2.5 g/dL (3.5-5.7) L 08/05/17 05:42 Globulin 3.7 g/dL (2.4-3.5) H 08/05/17 05:42 Albumin/Globulin Ratio 0.7 (1.1-2.2) L 08/05/17 05:42 HDL Cholesterol 22 mg/dL (40-59) L 08/05/17 05:42 Folate > 22.3 ng/mL (3.0-16.0) H 08/05/17 12:02 General appearance: Present: no acute distress - Respiratory Respiratory exam: Present: decreased breath sounds, CTAB - Cardiovascular Cardiovascular exam: Present: +S1, +S2 - GI/Abdominal GI/Abdominal exam: Present: distended, soft - Extremities Exam Extremities exam: Present: normal capillary refill, normal inspection - Neurological Exam Neurological exam: Present: alert Additional comments: Oriented to name and place. Still occasionally makes an inappropriate statement. Follows simple commands. - Skin Skin exam: Present: dry, pallor, warm Palliative Quality Palliative Quality: Screen for Code Status: Yes, Screen for Goals of Care: NA ( Will further discuss, pt with altered mental status), Screen for Pain: Yes, If Pain Regimen Started, Initiate Bowel Regimen: NA, Screen for Nausea/Vomitting: Yes - Labs CBC & Chem 7: 08/06/17 01:35 08/05/17 05:42 Labs: Laboratory Results - last 24 hr 08/05/17 08/05/17 08/05/17 03:53 04:07 04:35 WBC RBC Hgb Hct MCV MCH MCHC RDW Plt Count MPV Reticulocyte # Immature Gran % Seg Neutrophils % Lymphocytes % Monocytes % Eosinophils % Basophils % Neutrophils # Lymphocytes # Monocytes # Eosinophils # Basophils # Immature Plt Fraction Percent Retic Immature Retic Fraction Retic Hgb Equivalent POC Glucose 26 L* 40 L* 58 Iron % Saturation Transferrin Ferritin Lactate Dehydrogenase Vitamin B12 Folate 08/05/17 08/05/17 08/05/17 04:52 04:54 05:47 WBC RBC Hgb Hct MCV MCH MCHC RDW Plt Count MPV Reticulocyte # Immature Gran % Seg Neutrophils % Lymphocytes % Monocytes % Eosinophils % Basophils % Neutrophils # Lymphocytes # Monocytes # Eosinophils # Basophils # Immature Plt Fraction Percent Retic Immature Retic Fraction Retic Hgb Equivalent POC Glucose 352 H 350 H 211 H Iron % Saturation Transferrin Ferritin Lactate Dehydrogenase Vitamin B12 Folate 08/05/17 08/05/17 08/05/17 08:07 11:29 11:52 WBC RBC Hgb Hct MCV MCH MCHC RDW Plt Count MPV Reticulocyte # Immature Gran % Seg Neutrophils % Lymphocytes % Monocytes % Eosinophils % Basophils % Neutrophils # Lymphocytes # Monocytes # Eosinophils # Basophils # Immature Plt Fraction Percent Retic Immature Retic Fraction Retic Hgb Equivalent POC Glucose 161 H 136 H 137 H Iron % Saturation Transferrin Ferritin Lactate Dehydrogenase Vitamin B12 Folate 08/05/17 08/05/17 08/05/17 12:02 12:02 12:02 WBC RBC Hgb Hct MCV MCH MCHC RDW Plt Count MPV Reticulocyte # 0.06 Immature Gran % Seg Neutrophils % Lymphocytes % Monocytes % Eosinophils % Basophils % Neutrophils # Lymphocytes # Monocytes # Eosinophils # Basophils # Immature Plt Fraction Percent Retic 2.6 Immature Retic Fraction 7.3 L Retic Hgb Equivalent 36.7 H POC Glucose Iron 116 % Saturation 80 H Transferrin 103 L Ferritin 900 H Lactate Dehydrogenase 217 Vitamin B12 666 Folate > 22.3 H 08/05/17 08/05/17 08/06/17 15:46 20:21 01:35 WBC 3.7 L RBC 3.18 L Hgb 10.4 L D Hct 30.7 L MCV 96.5 D MCH 32.7 MCHC 33.9 RDW 16.6 H Plt Count 82 L MPV 10.1 Reticulocyte # Immature Gran % 0.8 Seg Neutrophils % 63.9 Lymphocytes % 22.1 Monocytes % 12.9 Eosinophils % 0.0 Basophils % 0.3 Neutrophils # 2.4 Lymphocytes # 0.8 Monocytes # 0.5 Eosinophils # 0.0 Basophils # 0.0 Immature Plt Fraction 2.7 Percent Retic Immature Retic Fraction Retic Hgb Equivalent POC Glucose 101 H 108 H Iron % Saturation Transferrin Ferritin Lactate Dehydrogenase Vitamin B12 Folate - ABG Interpretation ABG results: PT/INR, D-dimer PT 13.7 Seconds (9.4-12.1) H 08/04/17 12:04 Consult Discharge Plan - Plan Referrals: Gary Aguayo MD [Primary Care Provider] -
--- NOTE | 2017-08-06 11:37 | Electrocardiograph Report ---
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
[2017-08-06] MEDS: Potassium Effervescent 25 MEQ TABLET.EFF PO SCH (11:49)
[2017-08-06] MEDS: FLUoxetine 20 MG CAPSULE PO SCH (11:50)
[2017-08-06] MEDS: Folic Acid 1 MG TABLET PO SCH (11:53)
[2017-08-06] MEDS: Cholecalciferol (D-3) 1,000 UNIT TABLET PO SCH (11:53)
[2017-08-06] MEDS: amLODIPine 5 MG TABLET PO SCH (11:55)
[2017-08-06] MEDS: Furosemide 40 MG TABLET PO SCH ×2 (11:55→21:44)
[2017-08-06] MEDS: Lactulose Oral Soln 20 GM/30 ML UDC PO SCH ×3 (12:21→21:44)
--- NOTE | 2017-08-06 12:34 | Orthopedics Progress Note ---
Date of Encounter: 08/06/17 Time of Encounter: 12:32 - Assessment and Plan (1) Pelvis fracture Current Visit: Yes Status: Acute I did discuss the diagnosis in detail the patient as well as the patient's . She has a nondisplaced fracture of the right hemipelvis and acetabulum , likely subacute. Nonoperative treatment. Pain control as needed by the primary team. My recommendation is mobilization with therapy as tolerated with touchdown weightbearing to evaluate her tolerance of therapy. I anticipate advancing weightbearing depending on symptoms. I will follow clinically and provide further recommendations depending on her progress with therapy. I defer any spine pathology to the primary team. Qualifiers: Qualified Code(s): S32.9XXA - Fracture of unspecified parts of lumbosacral spine and pelvis, initial encounter for closed fracture Subjective Interval history: S: Resting in bed comfortably. Has not yet mobilized with therapy. Minimal right hip/groin pain. O: Afebrile, VSS Right hip without tenderness No significant pain with passive motion of the right hip or axial loading of the thigh She can grossly dorsiflex and plantarflex ankle and toes The foot is sensate and well-perfused A: Right pelvic ring/acetabulum fracture, likely subacute P: At this point my recommendation is touchdown weightbearing to the right lower extremity Mobilize with therapy when able We will follow clinically Repeat radiographs in 1 week Objective Vital signs: Vital Signs Temp Pulse Resp BP Pulse Ox 08/06/17 10:32 97.8 F 73 97 164/73 08/06/17 08:00 96 08/06/17 06:58 98.6 F 73 16 139/63 100 08/06/17 03:12 98.2 F 79 16 142/62 100 08/05/17 23:46 98.1 F 77 18 138/68 99 08/05/17 18:45 98.2 F 76 16 146/66 100 08/05/17 18:20 98.1 F 78 16 150/68 100 08/05/17 17:50 98.2 F 79 18 151/76 100 08/05/17 17:20 98.2 F 79 16 152/73 100 08/05/17 16:50 97.9 F 82 16 154/75 100 08/05/17 16:20 98.2 F 80 16 150/70 98 08/05/17 16:15 98.2 F 78 16 128/78 97 08/05/17 16:10 98.1 F 80 16 137/69 97 08/05/17 15:10 98.2 F 78 16 127/66 100 08/05/17 14:30 98 F 76 16 145/68 99 08/05/17 13:30 98.2 F 76 16 129/69 97 08/05/17 13:15 98.3 F 72 16 140/64 98 Intake and Output 08/05/17 08/06/17 08/06/17 23:59 07:59 15:59 Intake Total 700 / 700 0 / 0 Output Total 300 / 300 300 / 300 Balance 700 / 700 -300 / -300 -300 / -300 Intake: Oral 0 / 0 Blood Product 700 / 700 Rbcs Leuko Poor As-1 Unit 700 / 700 [id number] Free Water 0 / 0 Output: Urine 300 / 300 300 / 300 Other: Meal npo Percent of Meal Consumed 0% Stool Size Moderate Stool Consistency soft formed Stool Color Brown # Voids 1 1 # Bowel Movements 1 Weight 64.41 kg Blood Glucose* 108 105 Patient Weight 08/06/17 23:59 Weight 64.41 kg - Labs CBC & BMP: 08/06/17 01:35 08/05/17 05:42 Labs: Abnormal lab results WBC 3.7 K/mcL (4.3-11.1) L 08/06/17 01:35 RBC 3.18 M/mcL (3.82-4.97) L 08/06/17 01:35 Hgb 10.4 g/dL (11.5-15.4) L D 08/06/17 01:35 Hct 30.7 % (35.3-44.9) L 08/06/17 01:35 RDW 16.6 % (11.5-14.5) H 08/06/17 01:35 Plt Count 82 K/mcL (140-400) L 08/06/17 01:35 Immature Retic Fraction 7.3 % (11.0-38.0) L 08/05/17 12:02 Retic Hgb Equivalent 36.7 pg (28.61-36.33) H 08/05/17 12:02 PT 13.7 Seconds (9.4-12.1) H 08/04/17 12:04 Sodium 132 mEq/L (136-145) L 08/05/17 05:42 BUN 38 mg/dL (8-23) H 08/05/17 05:42 Creatinine 2.16 mg/dL (0.60-1.20) H 08/05/17 05:42 Est GFR ( Amer) 27 (> 60) L 08/05/17 05:42 Est GFR (Non-Af Amer) 23 (> 60) L 08/05/17 05:42 Glucose 212 mg/dL (70-105) H 08/05/17 05:42 POC Glucose 108 (58-89) H 08/05/17 20:21 Calcium 8.1 mg/dL (8.6-10.3) L 08/05/17 05:42 % Saturation 80 % (15-50) H 08/05/17 12:02 Transferrin 103 mg/dL (203-362) L 08/05/17 12:02 Ferritin 900 ng/ml (10-120) H 08/05/17 12:02 Direct Bilirubin 0.4 mg/dL (0.0-0.2) H 08/04/17 12:04 Alkaline Phosphatase 107 Units/L (34-104) H 08/05/17 05:42 Ammonia 85 mcmol/L (16-53) H 08/05/17 10:15 Serum Total Protein 6.2 g/dL (6.4-8.9) L 08/05/17 05:42 Albumin 2.5 g/dL (3.5-5.7) L 08/05/17 05:42 Globulin 3.7 g/dL (2.4-3.5) H 08/05/17 05:42 Albumin/Globulin Ratio 0.7 (1.1-2.2) L 08/05/17 05:42 HDL Cholesterol 22 mg/dL (40-59) L 08/05/17 05:42 Folate > 22.3 ng/mL (3.0-16.0) H 08/05/17 12:02 Consult Discharge Plan - Plan Referrals: Gary Aguayo MD [Primary Care Provider] -
--- NOTE | 2017-08-06 12:57 | Gastroenterology Progress Note ---
<Keysha Bazzi - Last Filed: 08/06/17 12:54> Date of Encounter: 08/06/17 Time of Encounter: 09:45 - Assessment and plan (1) Pancytopenia Status: Chronic Assessment and plan: Transfused 3 units PRBCs. Pt is more alert today. Monitor H&H, discussed with Dr Gagnon, can have EGD as an outpatient. (2) Liver cirrhosis Status: Chronic Assessment and plan: chronic, may be the cause of pancytopenia, she has history of hepatic encephalopathy and is on laculose Qualifiers: Hepatic cirrhosis type: unspecified hepatic cirrhosis Ascites presence: with ascites Qualified Code(s): K74.60 - Unspecified cirrhosis of liver - Time Spent With Patient Total time spent is greater than 50% in coordination of care (as documented) at patient's floor/unit and/or counseling patient: - Subjective Interval history: S: Pt is more awake today. Hgb is 10.1. She was transfused 3 units prbcs total. She denies abdominal pain. Nursing deny any black or bloody stools. - Constitutional Vitals: Temp Pulse Resp BP Pulse Ox 97.8 F 73 97 164/73 96 08/06/17 10:32 08/06/17 10:32 08/06/17 10:32 08/06/17 10:32 08/06/17 08:00 Exam: CONSTITUTIONAL:~alert, no acute distress.~HEAD:~normocephalic.~EYES:~no jaundice.~NECK:~no obvious swelling.~HEART:~regular rate and rhythm, murmur noted.~LUNGS:~bilateral good air entry.~ABDOMEN:~non distended, soft, non tender , no masses palpable, no organomegaly.~RECTAL EXAM:~Deferred.~EXTREMITIES:~no clubbing, cyanosis, 1+ BLE edema.~SKIN:~pallor noted, ~NEUROLOGIC:~no obvious focal defect.~~~~ Results - Labs CBC & Chem 7: 08/06/17 01:35 08/05/17 05:42 Labs: Last Result Calcium 8.1 mg/dL (8.6-10.3) L 08/05/17 05:42 Iron 116 mcg/dL (50-170) 08/05/17 12:02 % Saturation 80 % (15-50) H 08/05/17 12:02 Transferrin 103 mg/dL (203-362) L 08/05/17 12:02 Ferritin 900 ng/ml (10-120) H 08/05/17 12:02 Troponin I < 0.03 ng/mL (< 0.04) 08/04/17 12:04 Triglycerides 48 mg/dL (< 150) 08/05/17 05:42 Vitamin B12 666 pg/mL (250-1100) 08/05/17 12:02 Folate > 22.3 ng/mL (3.0-16.0) H 08/05/17 12:02 Entire Visit Hgb 10.4 g/dL (11.5-15.4) L D 08/06/17 01:35 Hct 30.7 % (35.3-44.9) L 08/06/17 01:35 PT 13.7 Seconds (9.4-12.1) H 08/04/17 12:04 Ferritin 900 ng/ml (10-120) H 08/05/17 12:02 Total Bilirubin 1.0 mg/dL (0.3-1.0) 08/05/17 05:42 AST 16 Units/L (13-39) 08/05/17 05:42 ALT 7 Units/L (7-52) 08/05/17 05:42 Ammonia 85 mcmol/L (16-53) H 08/05/17 10:15 Folate > 22.3 ng/mL (3.0-16.0) H 08/05/17 12:02 - ABG ABG results: PT/INR, D-dimer PT 13.7 Seconds (9.4-12.1) H 08/04/17 12:04 Consult Discharge Plan - Plan Instructions: Heart Failure (DC), Chest Pain (DC), Anemia (GEN) Additional Instructions: Please call [facility] hospice to reestablish. [facility] contacted and they will be out to see client today. If you have any questions please call [phone]. Please resume your home medications. Please return for new or worsening symptoms. Referrals: Gary Aguayo MD [Primary Care Provider] - (please call and schedule an appointment with your primary care physician to be seen ) <Ishmael Gagnon - Last Filed: 03/11/18 14:54> Date of Encounter: 08/06/17 - Time Spent With Patient Total time spent is greater than 50% in coordination of care (as documented) at patient's floor/unit and/or counseling patient: - Constitutional Vitals: Temp Pulse Resp BP Pulse Ox 97.7 F 70 16 150/72 100 08/07/17 08:00 08/07/17 08:00 08/07/17 08:00 08/07/17 08:00 08/07/17 08:00 Results - Labs CBC & Chem 7: 08/07/17 05:40 08/07/17 05:40 Labs: Last Result Calcium 8.2 mg/dL (8.6-10.3) L 08/07/17 05:40 Iron 116 mcg/dL (50-170) 08/05/17 12:02 % Saturation 80 % (15-50) H 08/05/17 12:02 Transferrin 103 mg/dL (203-362) L 08/05/17 12:02 Ferritin 900 ng/ml (10-120) H 08/05/17 12:02 Troponin I < 0.03 ng/mL (< 0.04) 08/04/17 12:04 Triglycerides 48 mg/dL (< 150) 08/05/17 05:42 Vitamin B12 666 pg/mL (250-1100) 08/05/17 12:02 Folate > 22.3 ng/mL (3.0-16.0) H 08/05/17 12:02 Entire Visit Hgb 9.9 g/dL (11.5-15.4) L 08/07/17 05:40 Hct 29.5 % (35.3-44.9) L 08/07/17 05:40 Haptoglobin 63 mg/dL (30-200) 08/05/17 12:02 PT 13.7 Seconds (9.4-12.1) H 08/04/17 12:04 Ferritin 900 ng/ml (10-120) H 08/05/17 12:02 Total Bilirubin 1.0 mg/dL (0.3-1.0) 08/05/17 05:42 AST 16 Units/L (13-39) 08/05/17 05:42 ALT 7 Units/L (7-52) 08/05/17 05:42 Ammonia 85 mcmol/L (16-53) H 08/05/17 10:15 Folate > 22.3 ng/mL (3.0-16.0) H 08/05/17 12:02 - ABG ABG results: PT/INR, D-dimer PT 13.7 Seconds (9.4-12.1) H 08/04/17 12:04 - Attending Attestation Ms Whelan is a pleasant 67-year-old female with cirrhosis and pancytopenia. There is no evidence of gross bleeding and she was received she received 3 units of packed cells and I do not believe endoscopy is indicated as inpatient we could work her up as outpatient services since no active bleeding has been observed. Thank you for this consultation. Further recommendations forthcoming as outpatient I have personally performed a face to face evaluation on this patient. I have reviewed and agree with the care plan. History and Exam by me shows:
[2017-08-06] MEDS: Acetaminophen 325 MG TABLET PO PRN (22:19)
[2017-08-07] MEDS: *HR* OxyCODONE ER (12 HR) 10 MG TABLET PO SCH (04:53)
[2017-08-07] MEDS: Acetaminophen 325 MG TABLET PO PRN (05:05)
[2017-08-07 06:14] LABS: Red Blood Count 3.05 M/mcL (3.82-4.97)
[2017-08-07 06:16] LABS: Hematocrit 29.5 % (35.3-44.9); Hemoglobin 9.9 g/dL (11.5-15.4); Immature Platelets 2.4 % (1.1-6.1); Mean Corpuscular HGB Conc 33.6 g/dL (31.6-35.5); Mean Corpuscular Hemoglobin 32.5 pg (28.0-33.3); Mean Corpuscular Volume 96.7 fL (83.0-100.0); Mean Platelet Volume 10.1 fL (9.4-12.4)
[2017-08-07 06:31] LABS: Calcium 8.2 mg/dL (8.6-10.3); Potassium 4.6 mEq/L (3.5-5.1)
[2017-08-07 08:01] VITALS: BP 150/72
[2017-08-07] MEDS: Folic Acid 1 MG TABLET PO SCH (08:43)
[2017-08-07] MEDS: Potassium Effervescent 25 MEQ TABLET.EFF PO SCH (08:44)
[2017-08-07] MEDS: amLODIPine 5 MG TABLET PO SCH (08:45)
[2017-08-07] MEDS: Lactulose Oral Soln 20 GM/30 ML UDC PO SCH (08:45)
[2017-08-07] MEDS: Furosemide 40 MG TABLET PO SCH (08:45)
[2017-08-07] MEDS: Cholecalciferol (D-3) 1,000 UNIT TABLET PO SCH (08:46)
[2017-08-07] MEDS: FLUoxetine 20 MG CAPSULE PO SCH (08:46)
--- NOTE | 2017-08-07 09:04 | Palliative Progress Note ---
Date of Encounter: 08/07/17 Time of Encounter: 07:55 - Assessment and plan (1) Goals of care, counseling/discussion Current Visit: Yes Status: Acute Assessment and plan: She continues to be full code I have encouraged discussion with family regarding this. (2) Acute metabolic encephalopathy due to hypoglycemia Current Visit: No Status: Acute Assessment and plan: Encephalopathy is undoubtedly due to multiple factors including the hypoglycemia but also the increased ammonia. Blood sugar is much improved, is getting lactulose, and is having active bowel movements with it. (3) Cancer associated pain Current Visit: Yes Status: Acute Assessment and plan: Not getting any of her long-lasting medications for pain, only got 2 doses total of oxycodone yesterday. I doubt that this is contributing to her altered mental status to any significant degree. (4) Nausea Current Visit: Yes Status: Acute Assessment and plan: No Phenergan or Zofran yesterday. Continue to watch - Time Spent With Patient Total time spent is greater than 50% in coordination of care (as documented) at patient's floor/unit and/or counseling patient: - Subjective Interval history: Patient is sleeping currently family states that she is not having any real problems and medication seems to be effective however the patient is still having some aches. - Constitutional Vitals: Abnormal lab results WBC 3.2 K/mcL (4.3-11.1) L 08/07/17 05:40 RBC 3.05 M/mcL (3.82-4.97) L 08/07/17 05:40 Hgb 9.9 g/dL (11.5-15.4) L 08/07/17 05:40 Hct 29.5 % (35.3-44.9) L 08/07/17 05:40 RDW 16.0 % (11.5-14.5) H 08/07/17 05:40 Plt Count 78 K/mcL (140-400) L 08/07/17 05:40 Immature Retic Fraction 7.3 % (11.0-38.0) L 08/05/17 12:02 Retic Hgb Equivalent 36.7 pg (28.61-36.33) H 08/05/17 12:02 PT 13.7 Seconds (9.4-12.1) H 08/04/17 12:04 Sodium 135 mEq/L (136-145) L 08/07/17 05:40 BUN 34 mg/dL (8-23) H 08/07/17 05:40 Creatinine 1.90 mg/dL (0.60-1.20) H 08/07/17 05:40 Est GFR ( Amer) 32 (> 60) L 08/07/17 05:40 Est GFR (Non-Af Amer) 26 (> 60) L 08/07/17 05:40 Glucose 116 mg/dL (70-105) H 08/07/17 05:40 POC Glucose 106 (58-89) H 08/06/17 21:02 Calcium 8.2 mg/dL (8.6-10.3) L 08/07/17 05:40 % Saturation 80 % (15-50) H 08/05/17 12:02 Transferrin 103 mg/dL (203-362) L 08/05/17 12:02 Ferritin 900 ng/ml (10-120) H 08/05/17 12:02 Direct Bilirubin 0.4 mg/dL (0.0-0.2) H 08/04/17 12:04 Alkaline Phosphatase 107 Units/L (34-104) H 08/05/17 05:42 Ammonia 85 mcmol/L (16-53) H 08/05/17 10:15 Serum Total Protein 6.2 g/dL (6.4-8.9) L 08/05/17 05:42 Albumin 2.5 g/dL (3.5-5.7) L 08/05/17 05:42 Globulin 3.7 g/dL (2.4-3.5) H 08/05/17 05:42 Albumin/Globulin Ratio 0.7 (1.1-2.2) L 08/05/17 05:42 HDL Cholesterol 22 mg/dL (40-59) L 08/05/17 05:42 Folate > 22.3 ng/mL (3.0-16.0) H 08/05/17 12:02 General appearance: Present: no acute distress - Respiratory Respiratory exam: Present: decreased breath sounds - Cardiovascular Cardiovascular exam: Present: RRR - GI/Abdominal GI/Abdominal exam: Present: normal bowel sounds, soft. Absent: tenderness - Extremities Exam Extremities exam: Absent: pedal edema, tenderness - Neurological Exam Neurological exam: Present: alert (A sleep but awakens easily. ) - Psychiatric Psychiatric exam: Absent: agitated, anxious - Skin Skin exam: Present: dry, warm Palliative Quality Palliative Quality: Screen for Code Status: Yes, Screen for Goals of Care: NA ( Will further discuss, pt with altered mental status), Screen for Pain: Yes, If Pain Regimen Started, Initiate Bowel Regimen: NA, Screen for Nausea/Vomitting: Yes - Labs CBC & Chem 7: 08/07/17 05:40 08/07/17 05:40 Labs: Laboratory Results - last 24 hr 08/06/17 08/06/17 08/06/17 06:57 11:17 17:21 WBC RBC Hgb Hct MCV MCH MCHC RDW Plt Count MPV Immature Plt Fraction Sodium Potassium Chloride Carbon Dioxide BUN Creatinine Est GFR ( Amer) Est GFR (Non-Af Amer) BUN/Creatinine Ratio Glucose POC Glucose 98 H 105 H 141 H Calculated Osmolality Calcium 08/06/17 08/07/17 08/07/17 21:02 05:40 05:40 WBC 3.2 L RBC 3.05 L Hgb 9.9 L Hct 29.5 L MCV 96.7 MCH 32.5 MCHC 33.6 RDW 16.0 H Plt Count 78 L MPV 10.1 Immature Plt Fraction 2.4 Sodium 135 L Potassium 4.6 Chloride 104 Carbon Dioxide 27 BUN 34 H Creatinine 1.90 H Est GFR ( Amer) 32 L Est GFR (Non-Af Amer) 26 L BUN/Creatinine Ratio 18 Glucose 116 H POC Glucose 106 H Calculated Osmolality 289 Calcium 8.2 L - ABG Interpretation ABG results: PT/INR, D-dimer PT 13.7 Seconds (9.4-12.1) H 08/04/17 12:04 Consult Discharge Plan - Plan Referrals: Gary Aguayo MD [Primary Care Provider] -
--- NOTE | 2017-08-07 09:15 | Internal Med Progress Note ---
<Ace Marinelli - Last Filed: 08/07/17 10:16> Date of Encounter: 08/07/17 Time of Encounter: 09:13 - Assessment and plan (1) Pelvis fracture Current Visit: Yes Status: Acute Assessment and plan: Secondary to fall. Orthopedic surgery following, no plans for surgery. Continue PT/OT. Social workers following and the patient plans to return home and to reestablish with [facility]. Qualifiers: Encounter type: initial encounter Pelvic bone location: multiple parts Fracture type: closed Fracture alignment: without disruption of pelvic ring Qualified Code(s): S32.82XA - Multiple fractures of pelvis without disruption of pelvic ring, initial encounter for closed fracture (2) Pancytopenia Current Visit: No Status: Chronic Assessment and plan: Chronic issue, followed by oncology. (3) Anemia Current Visit: Yes Status: Acute Assessment and plan: Status post transfusion 2 units packed red blood cells. Cause unknown. Patient was evaluated by GI but given that she plans to enroll with hospice no further intervention is recommended. Continue to monitor CBC. No evidence of active bleeding Qualifiers: Anemia type: unspecified type Qualified Code(s): D64.9 - Anemia, unspecified (4) CKD (chronic kidney disease) Current Visit: Yes Status: Acute Assessment and plan: Creatinine appears very baseline. Continue to monitor. Qualifiers: Chronic kidney disease stage: stage 4 (severe) Qualified Code(s): N18.4 - Chronic kidney disease, stage 4 (severe) (5) Liver cirrhosis Current Visit: No Status: Chronic Assessment and plan: Patient is much more alert after restarting lactulose. Continue lactulose 30 mg twice a day. Qualifiers: Hepatic cirrhosis type: unspecified hepatic cirrhosis Ascites presence: with ascites Qualified Code(s): K74.60 - Unspecified cirrhosis of liver (6) Essential hypertension Current Visit: No Status: Chronic Assessment and plan: Stable. Continue home medications. - Subjective Interval history: Patient seen and examined at bedside. Patient reports some mild pain in her right hip area but feels the pain medication is working. Otherwise she has no complaints. She is eating and drinking well, she denies chest pain, shortness of breath. - Constitutional Vitals: Temp Pulse Resp BP Pulse Ox 97.7 F 70 16 150/72 100 08/07/17 08:00 08/07/17 08:00 08/07/17 08:00 08/07/17 08:00 08/07/17 08:00 General appearance: Present: A&O X 3, no acute distress, answers questions appropriately - Respiratory Respiratory exam: Present: CTAB. Absent: rales, rhonchi, wheezes - Cardiovascular Cardiovascular exam: Present: RRR. Absent: gallop, rubs, systolic murmur - GI/Abdominal GI/Abdominal exam: Present: normal bowel sounds, soft. Absent: distended, tenderness - Neurological Exam Neurological exam: Present: alert, CN II-XII intact, oriented X3, no focal deficits Internal Medicine: Result - Labs CBC & Chem 7: 08/07/17 05:40 08/07/17 05:40 Labs: Short CBC 08/07/17 Range/Units 05:40 WBC 3.2 L (4.3-11.1) K/mcL Hgb 9.9 L (11.5-15.4) g/dL Hct 29.5 L (35.3-44.9) % Plt Count 78 L (140-400) K/mcL BMP 08/07/17 05:40 Sodium 135 L Potassium 4.6 Chloride 104 Carbon Dioxide 27 BUN 34 H Creatinine 1.90 H Glucose 116 H Calcium 8.2 L - ABG Interpretation ABG results: PT/INR, D-dimer PT 13.7 Seconds (9.4-12.1) H 08/04/17 12:04 Consult Discharge Plan - Plan Instructions: Heart Failure (DC), Chest Pain (DC), Anemia (GEN) Additional Instructions: Please call [facility] hospice to reestablish. [facility] contacted and they will be out to see client today. If you have any questions please call [phone]. Please resume your home medications. Please return for new or worsening symptoms. Referrals: Gary Aguayo MD [Primary Care Provider] - (please call and schedule an appointment with your primary care physician to be seen ) <Jayme Griggs H - Last Filed: 08/07/17 13:22> Date of Encounter: 08/07/17 - Constitutional Vitals: Temp Pulse Resp BP Pulse Ox 97.7 F 70 16 150/72 100 08/07/17 08:00 08/07/17 08:00 08/07/17 08:00 08/07/17 08:00 08/07/17 08:00 Internal Medicine: Result - Labs CBC & Chem 7: 08/07/17 05:40 08/07/17 05:40 Labs: Short CBC 08/07/17 Range/Units 05:40 WBC 3.2 L (4.3-11.1) K/mcL Hgb 9.9 L (11.5-15.4) g/dL Hct 29.5 L (35.3-44.9) % Plt Count 78 L (140-400) K/mcL BMP 08/07/17 05:40 Sodium 135 L Potassium 4.6 Chloride 104 Carbon Dioxide 27 BUN 34 H Creatinine 1.90 H Glucose 116 H Calcium 8.2 L - ABG Interpretation ABG results: PT/INR, D-dimer PT 13.7 Seconds (9.4-12.1) H 08/04/17 12:04 - Attending Attestation The patient and the patient's family insisted on being discharged, they were given the option to stay another day in the hospital but declined this option, risks explained they say they would like to continue hospice at home I examined this patient and my medical decision-making was reviewed with the Resident Physician. I agree with the documented findings, disposition and treatment plan as described except to the extent set forth below.
--- NOTE | 2017-08-07 11:08 | Discharge Summary ---
<Ace Marinelli - Last Filed: 08/07/17 11:06> Orders not resulted at time of discharge: Pending orders 08/05/17 12:02 Haptoglobin Routine Date of Encounter: 08/07/17 Time of Encounter: 11:06 - Discharge Diagnosis (1) Pelvis fracture Priority: Primary Status: Acute Qualifiers: Encounter type: initial encounter Pelvic bone location: multiple parts Fracture type: closed Fracture alignment: without disruption of pelvic ring Qualified Code(s): S32.82XA - Multiple fractures of pelvis without disruption of pelvic ring, initial encounter for closed fracture (2) Pancytopenia Priority: Secondary Status: Chronic (3) Anemia Priority: Secondary Status: Chronic Qualifiers: Anemia type: unspecified type Qualified Code(s): D64.9 - Anemia, unspecified (4) CKD (chronic kidney disease) Priority: Secondary Status: Chronic Qualifiers: Chronic kidney disease stage: stage 4 (severe) Qualified Code(s): N18.4 - Chronic kidney disease, stage 4 (severe) (5) Liver cirrhosis Priority: Secondary Status: Chronic Qualifiers: Hepatic cirrhosis type: unspecified hepatic cirrhosis Ascites presence: with ascites Qualified Code(s): K74.60 - Unspecified cirrhosis of liver (6) Essential hypertension Priority: Secondary Status: Chronic Hospital course: Ms. Whelan is a 67 year old female with history of cirrhosis, pancytopenia, CKD who is admitted after a fall at home. She was found to have a pelvic fracture. She was seen and evaluated by orthopedic surgery who felt that this was a nonoperative fracture. Patient was also found to be anemic and received 3 units of packed red blood cells. Patient was evaluated by GI but given that she is a hospice patient no further treatment was warranted. It was recommended that the patient be evaluated by physical therapy for possible outpatient services but patient and family had their stated goals to be discharged and return home with hospice. They requested no further treatment at this time. Patient will be discharged home to reestablish with [facility]. Discharge discussed with: patient, family - Time Spent with Patient Total time spent providing and/or coordinating discharge services: - Discharge Medications Home Medications: FLUoxetine HCl [Prozac] 40 mg PO DAILY 01/18/15 [History] amLODIPine [Norvasc] 5 mg PO DAILY 12/10/15 [History] Amitriptyline [Elavil] 50 mg PO HS 09/14/16 [History] Furosemide [Lasix] 40 mg PO BID 09/14/16 [History] Omeprazole [PriLOSEC] 20 mg PO DAILY 09/14/16 [History] Folic Acid 1 mg PO DAILY #30 tablet 11/17/16 [Rx] Midodrine [ProAmatine] 5 mg PO TID 04/28/17 [History] OxyCODONE ER (12 HR) [OxyCONTIN] 40 mg PO QAM 04/28/17 [History] OxyCODONE ER (12 HR) [OxyCONTIN] 50 mg PO QPM 04/28/17 [History] OxyCODONE Immed Rel [Roxicodone 5 MG] 5 mg PO Q6H PRN #20 tablet 04/28/17 [Rx] Acetaminophen [Tylenol 650mg SUPP] 650 mg RC Q4H PRN 08/04/17 [History] Bisacodyl [Dulcolax] 10 mg RC DAILY PRN 08/04/17 [History] Haloperidol 0.5 mg PO Q2H PRN 08/04/17 [History] Hyoscyamine SL [Levsin Sl] 0.125 - 0.25 mg SL Q2H PRN 08/04/17 [History] LORazepam [Ativan] 0.5 mg PO Q4H PRN 08/04/17 [History] Lactulose [Enulose] 20 gm PO BID 08/04/17 [History] Morphine Oral CONC [Roxanol] 5 mg PO Q4H PRN 08/04/17 [History] Nadolol 10 mg PO BID 08/04/17 [History] Promethazine [Phenergan] 25 mg RC Q6H PRN 08/04/17 [History] Levothyroxine [Synthroid] 100 mcg PO DAILY tablet 08/07/17 [Rx] Spironolactone [Aldactone] 100 mg PO DAILY tablet 08/07/17 [Rx] Allergies/Adverse Reactions: 3 Allergy/AdvReac Type Severity Reaction Status Date / Time metoclopramide [From Reglan] Allergy Rash Verified 07/12/17 09:16 Penicillins Allergy Rash Verified 07/12/17 09:16 Date of admission: 08/04/17 18:09 Primary care physician: Gary Aguayo MD Consults: 08/05/17 10:02 Consult to Gastroenterology [CONS] Routine Consulting Provider: Gastroenterology Maura Reason for Consult: severe anemia Time Notified: 10:02 Call Completed: No 08/05/17 11:34 Consult to Palliative Care [CONS] Routine Comment: Consulting Provider: Palliative Care Maura Reason for Consult: Discussed with Dr. Lopez. Assistance with pain medication regimen Call Completed: Yes Discharging clinician: Ace Marinelli Anticipated date of discharge: 08/07/17 - Constitutional Vitals: Temp Pulse Resp BP Pulse Ox 97.7 F 70 16 150/72 100 08/07/17 08:00 08/07/17 08:00 08/07/17 08:00 08/07/17 08:00 08/07/17 08:00 General appearance: Present: A&O X 3, no acute distress, answers questions appropriately - Respiratory Respiratory exam: Present: CTAB. Absent: rales, rhonchi, wheezes - Cardiovascular Cardiovascular exam: Present: RRR. Absent: gallop, rubs, systolic murmur - Patient Status Disposition: Hospice - Home Condition: Fair Functional capacity at discharge: bed bound Overall status at discharge: patient is not back to baseline - Discharge Instructions Instructions: Heart Failure (DC), Chest Pain (DC), Anemia (GEN) Follow Up With: Gary Aguayo MD [Primary Care Provider] - (please call and schedule an appointment with your primary care physician to be seen ) Additional Instructions: Please call [facility] hospice to reestablish. [facility] contacted and they will be out to see client today. If you have any questions please call [phone]. Please resume your home medications. Please return for new or worsening symptoms. - Diet and Activity Activity: other (Per hospice) Diet: advance to your usual diet <Jayme Griggs - Last Filed: 08/07/17 13:24> Orders not resulted at time of discharge: Pending orders 08/05/17 12:02 Haptoglobin Routine Date of Encounter: 08/07/17 Hospital course: Ms. Whelan is a 67 year old female - Time Spent with Patient Total time spent providing and/or coordinating discharge services: Date of admission: 08/04/17 18:09 Primary care physician: Gary Aguayo MD Consults: 08/05/17 10:02 Consult to Gastroenterology [CONS] Routine Consulting Provider: Makayla Lorenzo Reason for Consult: severe anemia Time Notified: 10:02 Call Completed: No 08/05/17 11:34 Consult to Palliative Care [CONS] Routine Comment: Consulting Provider: Palliative Care Maura Reason for Consult: Discussed with Dr. Lopez. Assistance with pain medication regimen Call Completed: Yes - Constitutional Vitals: Temp Pulse Resp BP Pulse Ox 97.7 F 70 16 150/72 100 08/07/17 08:00 08/07/17 08:00 08/07/17 08:00 08/07/17 08:00 08/07/17 08:00 - Attending Attestation Pancytopenia likely related to cirrhosis Chronic kidney disease stage 4 The patient and the patient's family insisted on being discharged, they were given the option to stay another day in the hospital but declined this option, risks explained they say they would like to continue hospice at home Time spent on this discharge: 40 minutes I examined this patient and my medical decision-making was reviewed with the Resident Physician. I agree with the documented findings, disposition and treatment plan as described except to the extent set forth below
--- NOTE | 2017-08-07 11:15 | Physician Discharge Referral ---
Home Health/Hosp Referral Info Transfer to: Hospice Provider in Charge Post Discharge: Dianeticist - Diagnosis (1) Pelvis fracture Priority: Primary Status: Acute (2) Pancytopenia Priority: Secondary Status: Chronic (3) Anemia Priority: Secondary Status: Chronic (4) CKD (chronic kidney disease) Priority: Secondary Status: Chronic (5) Liver cirrhosis Priority: Secondary Status: Chronic (6) Essential hypertension Priority: Secondary Status: Chronic - Respiratory Orders Oxygen / L per min (2) Smoking Cessation: Smoking cessation has been advised. For more information, call the [place] Tobacco Quit Line at 0-443-KKYN-NOW. - Diet/Nutrition Diet/Nutrition Orders: Mechanical Soft - Activity Activity Orders: Bedrest - Services Needed Following services are medically necessary services: Nursing, Home Health Aide - Transfer Medications Home Medications: FLUoxetine HCl [Prozac] 40 mg PO DAILY 01/18/15 [History] amLODIPine [Norvasc] 5 mg PO DAILY 12/10/15 [History] Amitriptyline [Elavil] 50 mg PO HS 09/14/16 [History] Furosemide [Lasix] 40 mg PO BID 09/14/16 [History] Omeprazole [PriLOSEC] 20 mg PO DAILY 09/14/16 [History] Folic Acid 1 mg PO DAILY #30 tablet 11/17/16 [Rx] Midodrine [ProAmatine] 5 mg PO TID 04/28/17 [History] OxyCODONE ER (12 HR) [OxyCONTIN] 40 mg PO QAM 04/28/17 [History] OxyCODONE ER (12 HR) [OxyCONTIN] 50 mg PO QPM 04/28/17 [History] OxyCODONE Immed Rel [Roxicodone 5 MG] 5 mg PO Q6H PRN #20 tablet 04/28/17 [Rx] Acetaminophen [Tylenol 650mg SUPP] 650 mg RC Q4H PRN 08/04/17 [History] Bisacodyl [Dulcolax] 10 mg RC DAILY PRN 08/04/17 [History] Haloperidol 0.5 mg PO Q2H PRN 08/04/17 [History] Hyoscyamine SL [Levsin Sl] 0.125 - 0.25 mg SL Q2H PRN 08/04/17 [History] LORazepam [Ativan] 0.5 mg PO Q4H PRN 08/04/17 [History] Lactulose [Enulose] 20 gm PO BID 08/04/17 [History] Morphine Oral CONC [Roxanol] 5 mg PO Q4H PRN 08/04/17 [History] Nadolol 10 mg PO BID 08/04/17 [History] Promethazine [Phenergan] 25 mg RC Q6H PRN 08/04/17 [History] Levothyroxine [Synthroid] 100 mcg PO DAILY tablet 08/07/17 [Rx] Spironolactone [Aldactone] 100 mg PO DAILY tablet 08/07/17 [Rx] Allergies/Adverse Reactions: 3 Allergy/AdvReac Type Severity Reaction Status Date / Time metoclopramide [From Reglan] Allergy Rash Verified 07/12/17 09:16 Penicillins Allergy Rash Verified 07/12/17 09:16 Certification: Further, I certify that my clinical findings support that this patient is homebound (i.e. absences from home require considerable and taxing effort and are for medical reasons or bahai services or infrequently or short duration when for other reasons) because: Homebound Reason: Patient requires assistance of a person or device to safely leave home, Leaving home requires considerable and taxing effort due to condition Attestation: My signature below is to certify that this patient is under my care and that I, or nurse practitioner, or a physician's project construction assistant manager working with me, has a face-to -face encounter with this patient.
== END 2017-08-07 13:05 | disposition hospice, home (50) | DRG 535 ==
LOC: 3BNU 11:40 → EMEROO 11:40 → 3BNU 15:27 → SUATTDRO 18:09
PROVIDERS: ADMIT Registered Nurse; ATTEND Internal Medicine

== ENCOUNTER 2017-08-30 20:16 | Inpatient (IN) ==
--- NOTE | 2017-08-30 20:20 | Emergency Department Note ---
Disposition Clinical Impression: Renal failure, Pancytopenia, Hyperkalemia, Frail elderly, UTI (urinary tract infection), Diabetes mellitus Disposition: Admitted As Inpatient Referrals: David Sadler MD [Primary Care Provider] - General Adult HPI - General Time Seen by Provider: 08/30/17 20:19 - History of Present Illness HPI Narrative: 67-year-old female reports emergency department with family members, there is concern for weakness, the patient has a history of cirrhosis and chronic anemia , they report when she feels weak like this she usually has severe anemia requiring transfusion. The patient was recently admitted and transfused they state about 3 weeks ago. There is no history of chest pain shortness of breath or acute abdominal pain no bloody stool. No vomiting of blood. No falls injuries fevers acute back pain or difficulty moving the arms or legs independently. There is no history of slurred speech unilateral arm or leg weakness or numbness or facial drooping. The patient's family reports the patient has become progressively weaker. They report she has difficulty standing secondary to her weakness. There is no history of confusion or headache. No bleeding of any type reported or noted. - Related Data Home Medications Medication Instructions Recorded Confirmed FLUoxetine HCl [Prozac] 40 mg PO DAILY 01/18/15 08/04/17 amLODIPine [Norvasc] 5 mg PO DAILY 12/10/15 08/04/17 Amitriptyline [Elavil] 50 mg PO HS 09/14/16 08/04/17 Furosemide [Lasix] 40 mg PO BID 09/14/16 08/04/17 Omeprazole [PriLOSEC] 20 mg PO DAILY 09/14/16 08/04/17 Midodrine [ProAmatine] 5 mg PO TID 04/28/17 08/04/17 OxyCODONE ER (12 HR) [OxyCONTIN] 40 mg PO QAM 04/28/17 08/04/17 OxyCODONE ER (12 HR) [OxyCONTIN] 50 mg PO QPM 04/28/17 08/04/17 Acetaminophen [Tylenol 650mg SUPP] 650 mg RC Q4H PRN 08/04/17 08/04/17 Bisacodyl [Dulcolax] 10 mg RC DAILY PRN 08/04/17 08/04/17 Haloperidol 0.5 mg PO Q2H PRN 08/04/17 08/04/17 Hyoscyamine SL [Levsin Sl] 0.125 - 0.25 mg SL Q2H PRN 08/04/17 08/04/17 LORazepam [Ativan] 0.5 mg PO Q4H PRN 08/04/17 08/04/17 Lactulose [Enulose] 20 gm PO BID 08/04/17 08/04/17 Morphine Oral CONC [Roxanol] 5 mg PO Q4H PRN 08/04/17 08/04/17 Nadolol 10 mg PO BID 08/04/17 08/04/17 Promethazine [Phenergan] 25 mg RC Q6H PRN 08/04/17 08/04/17 Previous Rx's Medication Instructions Recorded Folic Acid 1 mg PO DAILY #30 tablet 11/17/16 OxyCODONE Immed Rel [Roxicodone 5 5 mg PO Q6H PRN #20 tablet 04/28/17 MG] Levothyroxine [Synthroid] 100 mcg PO DAILY tablet 08/07/17 Spironolactone [Aldactone] 100 mg PO DAILY tablet 08/07/17 Allergies Allergy/AdvReac Type Severity Reaction Status Date / Time metoclopramide [From Reglan] Allergy Rash Verified 07/12/17 09:16 Penicillins Allergy Rash Verified 07/12/17 09:16 All systems ED: reviewed and negative except as stated. 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 Absent: scleral icterus, conjunctival injection, nystagmus, miosis, mydriasis - ENT ENT exam: mucous membranes dry, TM's normal bilaterally, normal external ear exam - Neck Neck exam: Present: normal inspection, full ROM, trachea midline - Chest Chest inspection: Present: symmetric chest wall rise. Absent: tenderness - Respiratory Respiratory exam: Present: normal lung sounds bilaterally. Absent: respiratory distress, wheezes, prolonged expiratory phase - Cardiovascular Cardiovascular exam: Present: regular rate, normal rhythm, normal heart sounds - Abdominal Exam Abdominal exam: Present: soft, Non-Tender, normal bowel sounds. Absent: tenderness, distention, guarding, rebound, rigidity, Telles's sign, Rovsing's sign, tenderness at McBurney's Point, pulsatile mass - Extremities Exam Extremities exam: Present: normal inspection, full ROM, normal capillary refill. Absent: tenderness, pedal edema, joint swelling, calf tenderness - Expanded Lower Extremity Exam Lower leg exam: Absent: Homans' sign Neurovascular/Tendon exam: Absent: motor deficit, sensory deficit - Back Exam Back exam: Present: normal inspection, full ROM. Absent: tenderness, CVA tenderness (R), CVA tenderness (L), vertebral tenderness - Neurological Exam Neurological exam: Present: alert, oriented X3, CN II-XII intact. Absent: motor sensory deficit - Psychiatric Psychiatric exam: Present: normal affect, normal mood - Skin Skin exam: Present: warm, dry, intact, normal color. Absent: rash, cyanosis, diaphoresis, erythema, pallor, mottled Course Vital Signs Temperature 97.9 F 08/30/17 20:17 Pulse Rate 80 08/30/17 20:17 Respiratory Rate 16 08/30/17 20:17 Blood Pressure 130/77 08/30/17 20:17 O2 Sat by Pulse Oximetry 97 08/30/17 20:17 Temperature 97.9 F 08/30/17 20:17 Pulse Rate 70 08/30/17 22:17 Respiratory Rate 22 08/30/17 22:17 Blood Pressure 142/63 08/30/17 22:17 O2 Sat by Pulse Oximetry 100 08/30/17 22:17 Oxygen Delivery Oxygen Delivery Room Air Medical Decision Making - [facility] Narrative Medical decision making narrative: The patient has been generally weak, she appears to have a UTI, as well as acute renal failure with hyperkalemia, she is pancytopenic and elderly. Based on her significant electrolyte abnormalities as well as infection and significant symptomatology, I thought it be appropriate to admit the patient hospital. Hyperkalemia protocol was initiated, IV fluid was ordered, antibiotics were ordered. The patient is currently stable. I reviewed the case with the hospitalist on-call who has accepted the patient to their care. - Lab Data Lab results reviewed: Yes I reviewed the patient's lab results. Result diagrams: 08/30/17 21:12 08/30/17 21:12 Lab Results 08/30/17 08/30/17 08/30/17 Range/Units 20:51 21:12 21:12 WBC 3.5 L (4.3-11.1) K/mcL RBC 2.22 L (3.82-4.97) M/mcL Hgb 7.6 L (11.5-15.4) g/dL Hct 23.9 L (35.3-44.9) % MCV 107.7 H D (83.0-100.0) fL MCH 34.2 H (28.0-33.3) pg MCHC 31.8 (31.6-35.5) g/dL RDW 16.2 H (11.5-14.5) % Plt Count 96 L (140-400) K/mcL MPV 10.3 (9.4-12.4) fL Immature Gran % 0.6 (0-4) % Seg Neutrophils % 55.5 % Lymphocytes % 30.3 % Monocytes % 13.0 % Eosinophils % 0.3 % Basophils % 0.3 % Neutrophils # 1.9 (1.6-8.9) K/mcL Lymphocytes # 1.1 (0.6-4.6) K/mcL Monocytes # 0.5 (0.0-1.3) K/mcL Eosinophils # 0.0 (0.0-0.6) K/mcL Basophils # 0.0 (0.0-0.2) K/mcL Immature Plt Fraction 3.3 (1.1-6.1) % PT (9.4-12.1) Seconds INR APTT (26.0-36.0) Seconds Sodium 132 L (136-145) mEq/L Potassium 7.8 H* (3.5-5.1) mEq/L Chloride 108 H (98-107) mEq/L Carbon Dioxide 22 L (23-29) mEq/L BUN 36 H (8-23) mg/dL Creatinine 2.07 H (0.60-1.20) mg/dL Est GFR ( Amer) 29 L (> 60) Est GFR (Non-Af Amer) 24 L (> 60) BUN/Creatinine Ratio 17 (6-26) Glucose 94 (70-105) mg/dL Calculated Osmolality 282 (280-300) Lactic Acid (0.5-2.2) mmol/L Calcium 9.0 (8.6-10.3) mg/dL Total Bilirubin 1.1 H (0.3-1.0) mg/dL AST 27 (13-39) Units/L ALT 16 (7-52) Units/L Alkaline Phosphatase 228 H (34-104) Units/L Ammonia (16-53) mcmol/L Troponin I < 0.03 (< 0.04) ng/mL Serum Total Protein 7.3 (6.4-8.9) g/dL Albumin 3.2 L (3.5-5.7) g/dL Globulin 4.1 H (2.4-3.5) g/dL Albumin/Globulin Ratio 0.8 L (1.1-2.2) Lipase (11-82) Units/L Urine Color Yellow (Yellow) Urine Clarity Turbid A (Clear) Urine pH 7.0 (5.0-8.0) pH Units Ur Specific [place] 1.011 (1.010-1.025) Urine Protein Negative (Neg-Trace) mg/dL Urine Glucose (UA) Normal (Normal) mg/dL Urine Ketones Negative (Negative) mg/dL Urine Blood Small H (Negative) Urine Nitrite Negative (Negative) Urine Bilirubin Negative (Negative) Urine Urobilinogen Normal (Normal) mg/dL Ur Leukocyte Esterase Large H (Negative) Urine Microscopic RBC 5-15 H (0-3) per hpf Urine Microscopic WBC TNTC H (0-3) per hpf Ur Squamous Epith Cells Many H (None-Few) per lpf Urine Bacteria Many H (None-Few) per hpf Hyaline Casts None Seen (None-Few) per lpf Ur Culture Indicated? NO. (NO) 08/30/17 08/30/17 08/30/17 Range/Units 21:12 21:12 21:12 WBC (4.3-11.1) K/mcL RBC (3.82-4.97) M/mcL Hgb (11.5-15.4) g/dL Hct (35.3-44.9) % MCV (83.0-100.0) fL MCH (28.0-33.3) pg MCHC (31.6-35.5) g/dL RDW (11.5-14.5) % Plt Count (140-400) K/mcL MPV (9.4-12.4) fL Immature Gran % (0-4) % Seg Neutrophils % % Lymphocytes % % Monocytes % % Eosinophils % % Basophils % % Neutrophils # (1.6-8.9) K/mcL Lymphocytes # (0.6-4.6) K/mcL Monocytes # (0.0-1.3) K/mcL Eosinophils # (0.0-0.6) K/mcL Basophils # (0.0-0.2) K/mcL Immature Plt Fraction (1.1-6.1) % PT 13.0 H (9.4-12.1) Seconds INR 1.2 APTT 32.8 (26.0-36.0) Seconds Sodium (136-145) mEq/L Potassium (3.5-5.1) mEq/L Chloride (98-107) mEq/L Carbon Dioxide (23-29) mEq/L BUN (8-23) mg/dL Creatinine (0.60-1.20) mg/dL Est GFR ( Amer) (> 60) Est GFR (Non-Af Amer) (> 60) BUN/Creatinine Ratio (6-26) Glucose (70-105) mg/dL Calculated Osmolality (280-300) Lactic Acid 0.7 (0.5-2.2) mmol/L Calcium (8.6-10.3) mg/dL Total Bilirubin (0.3-1.0) mg/dL AST (13-39) Units/L ALT (7-52) Units/L Alkaline Phosphatase (34-104) Units/L Ammonia (16-53) mcmol/L Troponin I (< 0.04) ng/mL Serum Total Protein (6.4-8.9) g/dL Albumin (3.5-5.7) g/dL Globulin (2.4-3.5) g/dL Albumin/Globulin Ratio (1.1-2.2) Lipase 13 (11-82) Units/L Urine Color (Yellow) Urine Clarity (Clear) Urine pH (5.0-8.0) pH Units Ur Specific [place] (1.010-1.025) Urine Protein (Neg-Trace) mg/dL Urine Glucose (UA) (Normal) mg/dL Urine Ketones (Negative) mg/dL Urine Blood (Negative) Urine Nitrite (Negative) Urine Bilirubin (Negative) Urine Urobilinogen (Normal) mg/dL Ur Leukocyte Esterase (Negative) Urine Microscopic RBC (0-3) per hpf Urine Microscopic WBC (0-3) per hpf Ur Squamous Epith Cells (None-Few) per lpf Urine Bacteria (None-Few) per hpf Hyaline Casts (None-Few) per lpf Ur Culture Indicated? (NO) 08/30/17 Range/Units 21:12 WBC (4.3-11.1) K/mcL RBC (3.82-4.97) M/mcL Hgb (11.5-15.4) g/dL Hct (35.3-44.9) % MCV (83.0-100.0) fL MCH (28.0-33.3) pg MCHC (31.6-35.5) g/dL RDW (11.5-14.5) % Plt Count (140-400) K/mcL MPV (9.4-12.4) fL Immature Gran % (0-4) % Seg Neutrophils % % Lymphocytes % % Monocytes % % Eosinophils % % Basophils % % Neutrophils # (1.6-8.9) K/mcL Lymphocytes # (0.6-4.6) K/mcL Monocytes # (0.0-1.3) K/mcL Eosinophils # (0.0-0.6) K/mcL Basophils # (0.0-0.2) K/mcL Immature Plt Fraction (1.1-6.1) % PT (9.4-12.1) Seconds INR APTT (26.0-36.0) Seconds Sodium (136-145) mEq/L Potassium (3.5-5.1) mEq/L Chloride (98-107) mEq/L Carbon Dioxide (23-29) mEq/L BUN (8-23) mg/dL Creatinine (0.60-1.20) mg/dL Est GFR ( Amer) (> 60) Est GFR (Non-Af Amer) (> 60) BUN/Creatinine Ratio (6-26) Glucose (70-105) mg/dL Calculated Osmolality (280-300) Lactic Acid (0.5-2.2) mmol/L Calcium (8.6-10.3) mg/dL Total Bilirubin (0.3-1.0) mg/dL AST (13-39) Units/L ALT (7-52) Units/L Alkaline Phosphatase (34-104) Units/L Ammonia 57 H (16-53) mcmol/L Troponin I (< 0.04) ng/mL Serum Total Protein (6.4-8.9) g/dL Albumin (3.5-5.7) g/dL Globulin (2.4-3.5) g/dL Albumin/Globulin Ratio (1.1-2.2) Lipase (11-82) Units/L Urine Color (Yellow) Urine Clarity (Clear) Urine pH (5.0-8.0) pH Units Ur Specific [place] (1.010-1.025) Urine Protein (Neg-Trace) mg/dL Urine Glucose (UA) (Normal) mg/dL Urine Ketones (Negative) mg/dL Urine Blood (Negative) Urine Nitrite (Negative) Urine Bilirubin (Negative) Urine Urobilinogen (Normal) mg/dL Ur Leukocyte Esterase (Negative) Urine Microscopic RBC (0-3) per hpf Urine Microscopic WBC (0-3) per hpf Ur Squamous Epith Cells (None-Few) per lpf Urine Bacteria (None-Few) per hpf Hyaline Casts (None-Few) per lpf Ur Culture Indicated? (NO) - Radiology Data Radiology results reviewed: Yes I reviewed the patient's radiology results.
[2017-08-30 21:08] LABS: Bilirubin,Urine Negative (Negative); Blood,Urine Small (Negative); Clarity,Urine Turbid (Clear); Color,Urine Yellow (Yellow); Glucose,Urine (UA) Normal (Normal); Ketones,Urine Negative (Negative); Leukocyte Esterase,Urine Large (Negative); Nitrite,Urine Negative (Negative); Protein,Urine Negative (Neg-Trace); Specific Gravity,Urine 1.011 (1.010-1.025); Urobilinogen,Urine Normal (Normal)
[2017-08-30 21:10] LABS: Bacteria,Urine Many per hpf (None-Few); Hyaline Casts,Urine None Seen per lpf (None-Few); Squamous Epithelial Cell,Urine Many per lpf (None-Few); WBC,Urine TNTC per hpf (0-3)
[2017-08-30 21:35] LABS: Eosinophils % 0.3 %
[2017-08-30 21:37] LABS: Basophils % 0.3 %; Hematocrit 23.9 % (35.3-44.9); Immature Granulocytes % 0.6 % (0-4); Immature Platelets 3.3 % (1.1-6.1); Lymphocytes # 1.1 K/mcL (0.6-4.6); Lymphocytes % 30.3 %; Mean Corpuscular HGB Conc 31.8 g/dL (31.6-35.5); Mean Corpuscular Hemoglobin 34.2 pg (28.0-33.3); Mean Corpuscular Volume 107.7 fL (83.0-100.0); Mean Platelet Volume 10.3 fL (9.4-12.4); Monocytes # 0.5 K/mcL (0.0-1.3); Neutrophils # 1.9 K/mcL (1.6-8.9); Red Blood Count 2.22 M/mcL (3.82-4.97); Red Cell Distribution Width 16.2 % (11.5-14.5); Segmented Neutrophils % 55.5 %
[2017-08-30 21:42] LABS: INR 1.2
[2017-08-30 21:45] LABS: Activated Partial Thrombo Time 32.8 Seconds (26.0-36.0)
[2017-08-30 21:47] LABS: Hemoglobin 7.6 g/dL (11.5-15.4); Platelet Count 96 K/mcL (140-400)
[2017-08-30 21:48] LABS: Troponin I < 0.03 ng/mL (< 0.04)
[2017-08-30 21:54] LABS: Alanine Aminotransferase 16 Units/L (7-52); Albumin 3.2 g/dL (3.5-5.7); Albumin/Globulin Ratio 0.8 (1.1-2.2); Alkaline Phosphatase 228 Units/L (34-104); Aspartate Amino Transferase 27 Units/L (13-39); BUN/Creatinine Ratio 17 (6-26); Bilirubin,Total 1.1 mg/dL (0.3-1.0); Blood Urea Nitrogen 36 mg/dL (8-23); Carbon Dioxide 22 mEq/L (23-29); Chloride 108 mEq/L (98-107); Globulin 4.1 g/dL (2.4-3.5); Glucose 94 mg/dL (70-105); Osmolality,Calculated 282 (280-300); Potassium 7.8 mEq/L (3.5-5.1); Sodium 132 mEq/L (136-145); Total Protein 7.3 g/dL (6.4-8.9); eGFR For African Americans 29 (> 60); eGFR For Non-African Americans 24 (> 60)
[2017-08-30] MEDS ORDERED: *HR* Dextrose 50 % in Water (Syg) 50 ML SYRINGE IVP ONE (22:10)
[2017-08-30] MEDS ORDERED: Calcium Chloride 1,000 MG in 0.9 % Sodium Chloride 100 ML IVPB ONE (22:10)
[2017-08-30] MEDS ORDERED: Albuterol 2.5 MG/3 ML NEBULIZER IH ONE (22:10)
[2017-08-30] MEDS ORDERED: Insulin Human Regular 10 UNIT in 0.9 % Sodium Chloride 10 ML IV ONE (22:11)
[2017-08-30] MEDS ORDERED: 0.9 % Sodium Chloride 1,000 ML IVC ONE (22:28)
[2017-08-31] MEDS ORDERED: Naloxone 0.4 MG/ML INJ IVP PRN (00:34)
[2017-08-31] MEDS ORDERED: D5% in Water 1,000 ML IVC PRN (00:35)
[2017-08-31] MEDS ORDERED: *HR* Dextrose 50 % in Water (Syg) 50 ML SYRINGE IVP PRN (00:35)
[2017-08-31] MEDS ORDERED: Dextrose Gel 15 GM PO PRN ×2 (00:35)
--- NOTE | 2017-08-31 00:38 | Internal Med History&Physical ---
Date of Encounter: 08/31/17 Time of Encounter: 00:37 Assessment and Plan (1) Hyperkalemia Current visit: Yes Status: Acute acute hyperkalemia 7.8 - repeat 6.9 after calcium, insulin, D50, and dose of kayexalate - trial of 10 mg Albuterol nebulizer continue to monitor q2h for improvement ECG changes noted in ED - will repeat ECG no indication for hemodialysis at this time as it is responsive to treatment - will get nephrology on-board if no improvement (2) Liver cirrhosis Current visit: Yes Status: Chronic history of liver cirrhosis ammonia level is elevated but higher in past - her disorientation is her baseline per family patient is afebrile given abdominal tenderness, CT abd/pelvis without contrast MELD score 20 with estimated 3 month mortality of 6.0% Qualifiers: Hepatic cirrhosis type: unspecified hepatic cirrhosis Ascites presence: with ascites Qualified Code(s): K74.60 - Unspecified cirrhosis of liver (3) Goals of care, counseling/discussion Current visit: Yes Status: Acute patient originally placed on hospice per family, changed status to full code on admission for treatment consult to palliative care to have discussion as patient has near end stage cirrhosis I had a discussion on goals of care with , son, and patient's brother regarding code status, wish to await palliative care (4) Pancytopenia Current visit: Yes Status: Chronic chronic no acute intervention continue to monitor (5) Anemia Current visit: Yes Status: Chronic history of chronic anemia hemoglobin 7.6 recent blood transfusion, no active signs of bleeding at this time full code status, will check type and screen for possible transfusion monitor H/H Qualifiers: Anemia type: unspecified type Qualified Code(s): D64.9 - Anemia, unspecified (6) Chronic kidney disease Current visit: Yes Status: Acute history of CKD hold nephrotoxic meds continue to monitor Qualifiers: Chronic kidney disease stage: stage 3 (moderate) Qualified Code(s): N18.3 - Chronic kidney disease, stage 3 (moderate) (7) DVT prophylaxis Current visit: Yes Status: Acute SCDs Internal Medicine - H&P: HPI Chief complaint: hyperkalemia, cirrhosis, anemia Admitted From: Home Plans for Post Hospital Care: Home History of present illness: Ms. Whelan is a 67 year old female with history of cirrhosis and chronic anemia admitted to the intensive care unit at [facility] for hyperkalemia, altered mental status and urinary tract infection. Patient presented to the emergency department with family members due to concern for weakness. Unfortunately at this time patient is confused and unable to provide history. History was obtained through emergency department documentation and family members. Family reports patient has been feeling weak over the past several days. She was recently admitted with similar presentation requiring transfusion 3 weeks ago. They thought this was why she has been weak recently. Patient denies any recent falls. She does report some abdominal pain and nausea. She denies any chest pain or shortness of breath. In the emergency department patient was found to have hyperkalemia 7.8 with reported ECG changes , unable to locate ECG at this time. Patient has been treated with calcium, insulin, dextrose and Kayexalate in the emergency department. A recent repeat potassium 6.9. Her creatinine function is near baseline at 2.07. She is also anemic 7.6 which is drastically lower than her prior on 08/07/2017 at 9.9 where she received a blood transfusion from 6.7 up to 10.4. Patient family deny any signs of active bleeding such as hematemesis, hemoptysis, bloody urine, bloody stool or blacked tarry stool. Her urinalysis showed signs concerning for urinary tract infection which may be contributing to her underlying confusion and weakness. She was treated with Cipro in the emergency department. Patient presented afebrile and had an ammonia level of 57, this is lower than her prior at 85. Her total bilirubin is 1.1. Family reports patient was initially on hospice but the revoked it and would like her to be full code. I have had a long lengthy discussion with , son and patient brother in regards to your toes status. Unfortunately is very distraught and appropriately so. He is unable to make any decision on her code status at this time. They do understand that by being full code if her heart did stop CPR would be performed. I offered the family palliative care consultation here which they would like to wait prior to making final decision. Past Med Surg Social Fam HX - Past Medical History Source: obtained from family Medical history: arthritis, CHF, diabetes, hypertension, migraine, osteoporosis , renal disease, thyroid disease, other Psychiatric history: anxiety, depression - Past Surgical History Surgical History: appendectomy, , cholecystectomy, hysterectomy, orthopedic, other, other - Social History Smoking Status: Never smoker Smokeless Tobacco Status: No Alcohol use: none Drug use: none - Family History Father Family Member Ethnicity: Non- Living Status: Hx Family Cardiac Disorders: Yes (Heart disease, stroke) Mother Family Member Ethnicity: Non- Living Status: Hx Family Cardiac Disorders: Yes (CHF) Hx Family Respiratory Disorders: No Hx Family Cancer: Yes (Pancreatic ca) Hx Family GI Disorders: No Hx Family Endocrine Disorder: Yes (DM) Hx Family Neuromuscular Disorders: No Hx Family Neurologic Disorders: No Hx Family HEENT Disorders: No Hx Family Autoimmune Disorders: No Internal Medicine - H&P: Meds FLUoxetine HCl [Prozac] 40 mg PO DAILY 01/18/15 [History] amLODIPine [Norvasc] 5 mg PO DAILY 12/10/15 [History] Amitriptyline [Elavil] 50 mg PO HS 09/14/16 [History] Furosemide [Lasix] 40 mg PO BID 09/14/16 [History] Omeprazole [PriLOSEC] 20 mg PO DAILY 09/14/16 [History] Folic Acid 1 mg PO DAILY #30 tablet 11/17/16 [Rx] Midodrine [ProAmatine] 5 mg PO TID 04/28/17 [History] OxyCODONE ER (12 HR) [OxyCONTIN] 40 mg PO QAM 04/28/17 [History] OxyCODONE ER (12 HR) [OxyCONTIN] 50 mg PO QPM 04/28/17 [History] OxyCODONE Immed Rel [Roxicodone 5 MG] 5 mg PO Q6H PRN #20 tablet 04/28/17 [Rx] Acetaminophen [Tylenol 650mg SUPP] 650 mg RC Q4H PRN 08/04/17 [History] Bisacodyl [Dulcolax] 10 mg RC DAILY PRN 08/04/17 [History] Haloperidol 0.5 mg PO Q2H PRN 08/04/17 [History] Hyoscyamine SL [Levsin Sl] 0.125 - 0.25 mg SL Q2H PRN 08/04/17 [History] LORazepam [Ativan] 0.5 mg PO Q4H PRN 08/04/17 [History] Lactulose [Enulose] 20 gm PO BID 08/04/17 [History] Morphine Oral CONC [Roxanol] 5 mg PO Q4H PRN 08/04/17 [History] Nadolol 10 mg PO BID 08/04/17 [History] Promethazine [Phenergan] 25 mg RC Q6H PRN 08/04/17 [History] Levothyroxine [Synthroid] 100 mcg PO DAILY tablet 08/07/17 [Rx] Spironolactone [Aldactone] 100 mg PO DAILY tablet 08/07/17 [Rx] 3 Allergy/AdvReac Type Severity Reaction Status Date / Time metoclopramide [From Reglan] Allergy Rash Verified 07/12/17 09:16 Penicillins Allergy Rash Verified 07/12/17 09:16 ROS unobtainable: due to mental status All Systems PM: A 10-system review of systems was performed and is negative for pertinent findings except as documented above in the HPI. - Constitutional Vitals: Temp Pulse Resp BP Pulse Ox 97.9 F 69 18 131/67 100 08/30/17 20:17 08/30/17 22:56 08/30/17 23:59 08/30/17 23:59 08/30/17 22:56 General appearance: Present: A&O X 1, no acute distress - Head Head exam: Present: atraumatic, normal inspection, normocephalic - Eye Eye exam: Present: EOMI, PERRL, scleral icterus. Absent: nystagmus - ENT ENT exam: Present: mucous membranes dry, normal exam - Neck Neck exam general surgery: Present: full ROM, normal inspection, supple, trachea midline - Respiratory Respiratory exam: Present: CTAB. Absent: accessory muscle use, respiratory distress, stridor, wheezes - Cardiovascular Cardiovascular exam: Present: RRR, +S1, +S2. Absent: diastolic murmur, systolic murmur - GI/Abdominal GI/Abdominal exam: Present: hepatomegaly, normal bowel sounds, soft, tenderness (diffuse). Absent: distended, firm, guarding, rebound, rigid, no peritoneal signs - Extremities Exam Extremities exam: Present: full ROM, normal capillary refill, radial pulses palpable and symmetrical. Absent: calf tenderness, cyanotic - Neurological Exam Neurological exam: Present: no focal deficits, strengths equal and symetr throughout. Absent: pronater drift, facial droop, speech deficit - Expanded Neurological Exam Neurological exam expanded: Present: protecting the airway Patient oriented to: Present: person. Absent: place (unable to give correct answer despite choices of hospital, home, library, restaurant), time Speech: Present: fluid speech - Skin Skin exam: Present: dry Additional comments: jaundice Internal Med - H&P Results - Labs CBC & Chem 7: 08/31/17 04:12 08/31/17 04:12
[2017-08-31] MEDS ORDERED: Insulin Human Regular 10 UNIT in 0.9 % Sodium Chloride 10 ML IV ONE ×3 (01:35→21:09)
[2017-08-31] MEDS ORDERED: *HR* Dextrose 50 % in Water (Syg) 50 ML SYRINGE IVP ONE ×3 (01:36→21:10)
[2017-08-31] MEDS ORDERED: Albuterol Neb 1.25 MG/3 ML VIAL IH ONE (02:48)
[2017-08-31] MEDS ORDERED: Albuterol 2.5 MG/3 ML NEBULIZER IH ONE ×2 (03:00→03:02)
[2017-08-31 04:53] LABS: Basophils % 0.2 %; Hemoglobin 7.7 g/dL (11.5-15.4)
[2017-08-31 04:55] LABS: Hematocrit 24.3 % (35.3-44.9); Immature Granulocytes % 0.9 % (0-4); Lymphocytes # 0.9 K/mcL (0.6-4.6); Lymphocytes % 20.4 %; Mean Corpuscular HGB Conc 31.7 g/dL (31.6-35.5); Mean Corpuscular Hemoglobin 34.2 pg (28.0-33.3); Mean Platelet Volume 10.7 fL (9.4-12.4); Monocytes % 11.9 %; Nucleated Red Blood Cells 0.7 /100 WBC (0); Platelet Count 104 K/mcL (140-400); Red Blood Count 2.25 M/mcL (3.82-4.97); Red Cell Distribution Width 16.1 % (11.5-14.5); Segmented Neutrophils % 66.6 %
[2017-08-31 05:15] LABS: Calcium 9.8 mg/dL (8.6-10.3); Potassium 6.8 mEq/L (3.5-5.1)
[2017-08-31 05:31] LABS: Monocytes # 0.6 K/mcL (0.0-1.3); Neutrophils # 3.1 K/mcL (1.6-8.9)
[2017-08-31] MEDS ORDERED: Albumin 25% 25gram/100mL 25 GM/100 ML IV.SOLN IVPB ONE (05:46)
[2017-08-31] MEDS ORDERED: Albumin 25% 25gram/100mL 25 GM/100 ML IV.SOLN IVC ONE (05:47)
--- NOTE | 2017-08-31 09:04 | Palliative - Consult Note ---
<LawandaKimberly - Last Filed: 08/31/17 11:24> Date of Encounter: 08/31/17 Time of Encounter: 08:58 - Assessment and Plan (1) Counseling regarding advanced care planning and goals of care Current Visit: No Status: Acute Assessment and plan: Prior to arriving at the hospital, patient was living at home and had [facility]. Patient revoked hospice prior to coming to the hospital. I had a long and extensive conversation with patient's Nicolas and her son Leonard. Spoke to them regarding code status, goals of care. They were explained that at this time, it is unlikely that she would benefit from being a full code. Patient's and son both voiced understanding. Plan: code status changed to DNRCC patient will be discharged back home with [facility]. (2) Liver cirrhosis Current Visit: Yes Status: Chronic Assessment and plan: Meld score: 6% estiimated 3 month mortality. Qualifiers: Hepatic cirrhosis type: unspecified hepatic cirrhosis Ascites presence: with ascites Qualified Code(s): K74.60 - Unspecified cirrhosis of liver (3) Hyperkalemia Current Visit: Yes Status: Acute (4) BLANKA (acute kidney injury) Current Visit: No Status: Acute (5) Weakness Current Visit: No Status: Acute (6) Pancytopenia Current Visit: Yes Status: Chronic Palliative-CN HPI - Data of Consult Patient: known to practice within the last 3 years Consult date: 08/31/17 Requesting Physician: Thais Schulz Primary Care Provider: David Sadler MD - Consult Narrative Palliative Care/Comfort Measures: Hospice care Reason for consult: Discuss code status History of present illness: Ms. Whelan is a 67 year old female with past medical history of cirrhosis, chronic anemia, arthritis, CHF, DM, hypertension, migraines, osteoporosis, CKD, hypothyroidism. Patient arrived to the emergency department on 08/31/17 from home. Patient does live at home with [facility] and was brought to the hospital by her family for altered mental status, weakness. Upon admission, her potassium was 7.8 and her pneumonia was 57. patient's got extremely nervous when she became altered, and had changed her code status to full code upon admission to the hospital. During examination, patient was sleeping and review of systems could not be obtained. CC: Thais Schulz Past Med Surg Social Fam HX - Past Medical History Medical history: arthritis, CHF, diabetes, hypertension, migraine, osteoporosis , renal disease, thyroid disease, other Psychiatric history: anxiety, depression - Past Surgical History Surgical History: appendectomy, , cholecystectomy, hysterectomy, orthopedic, other, other - Social History Smoking Status: Never smoker Smokeless Tobacco Status: No Alcohol use: none Drug use: none - Family History Father Family Member Ethnicity: Non- Living Status: Hx Family Cardiac Disorders: Yes (Heart disease, stroke) Mother Family Member Ethnicity: Non- Living Status: Hx Family Cardiac Disorders: Yes (CHF) Hx Family Respiratory Disorders: No Hx Family Cancer: Yes (Pancreatic ca) Hx Family GI Disorders: No Hx Family Endocrine Disorder: Yes (DM) Hx Family Neuromuscular Disorders: No Hx Family Neurologic Disorders: No Hx Family HEENT Disorders: No Hx Family Autoimmune Disorders: No Medications and Allergies FLUoxetine HCl [Prozac] 40 mg PO DAILY 01/18/15 [History] amLODIPine [Norvasc] 5 mg PO DAILY 12/10/15 [History] Amitriptyline [Elavil] 50 mg PO HS 09/14/16 [History] Furosemide [Lasix] 40 mg PO BID 09/14/16 [History] Omeprazole [PriLOSEC] 20 mg PO DAILY 09/14/16 [History] Folic Acid 1 mg PO DAILY #30 tablet 11/17/16 [Rx] Midodrine [ProAmatine] 5 mg PO TID 04/28/17 [History] OxyCODONE ER (12 HR) [OxyCONTIN] 40 mg PO QAM 04/28/17 [History] OxyCODONE ER (12 HR) [OxyCONTIN] 50 mg PO QPM 04/28/17 [History] OxyCODONE Immed Rel [Roxicodone 5 MG] 5 mg PO Q6H PRN #20 tablet 04/28/17 [Rx] Acetaminophen [Tylenol 650mg SUPP] 650 mg RC Q4H PRN 08/04/17 [History] Bisacodyl [Dulcolax] 10 mg RC DAILY PRN 08/04/17 [History] Haloperidol 0.5 mg PO Q2H PRN 08/04/17 [History] Hyoscyamine SL [Levsin Sl] 0.125 - 0.25 mg SL Q2H PRN 08/04/17 [History] LORazepam [Ativan] 0.5 mg PO Q4H PRN 08/04/17 [History] Lactulose [Enulose] 20 gm PO BID 08/04/17 [History] Morphine Oral CONC [Roxanol] 5 mg PO Q4H PRN 08/04/17 [History] Nadolol 10 mg PO BID 08/04/17 [History] Promethazine [Phenergan] 25 mg RC Q6H PRN 08/04/17 [History] Levothyroxine [Synthroid] 100 mcg PO DAILY tablet 08/07/17 [Rx] Spironolactone [Aldactone] 100 mg PO DAILY tablet 08/07/17 [Rx] 3 Allergy/AdvReac Type Severity Reaction Status Date / Time metoclopramide [From Reglan] Allergy Rash Verified 07/12/17 09:16 Penicillins Allergy Rash Verified 07/12/17 09:16 ROS unobtainable: due to mental status Palliative Care-Exam - Constitutional Vitals: Temp Pulse Resp BP Pulse Ox 96 F L 68 10 140/65 100 08/31/17 08:37 08/31/17 08:00 08/31/17 08:00 08/31/17 08:00 08/31/17 08:00 General appearance: Present: no acute distress, thin Exam: sleeping comfortably in bed - Head Head Exam: Present: atraumatic, normocephalic - Neck Neck exam: Present: normal inspection - Respiratory Respiratory exam: Present: CTAB - Cardiovascular Cardiovascular exam: Present: bradycardia, +S1, +S2 - GI/Abdominal Exam GI/Abdominal exam: Present: distended, normal bowel sounds, soft - Extremities Exam Additional comments: Cyanosis or pedal edema present. - Neurological Exam Additional comments: Pupils equally reactive to light, patient responds to painful stimuli. Internal Medicine - CN: Reslt - Labs CBC & Chem 7: 08/31/17 04:12 08/31/17 08:00 Labs: Short CBC 08/31/17 Range/Units 04:12 WBC 4.6 (4.3-11.1) K/mcL Hgb 7.7 L (11.5-15.4) g/dL Hct 24.3 L (35.3-44.9) % Plt Count 104 L (140-400) K/mcL Neutrophils # 3.1 (1.6-8.9) K/mcL BMP 08/31/17 08/31/17 08/31/17 00:53 04:12 06:12 Sodium 133 L Potassium 6.9 H* 6.8 H* 6.5 H* Chloride 109 H Carbon Dioxide 21 L BUN 35 H Creatinine 1.93 H Glucose 50 L Calcium 9.8 08/31/17 08:00 Sodium Potassium 6.7 H* Chloride Carbon Dioxide BUN Creatinine Glucose Calcium - ABG Interpretation ABG results: PT/INR, D-dimer PT 13.0 Seconds (9.4-12.1) H 08/30/17 21:12 Consult Discharge Plan - Plan Referrals: David Sadler MD [Primary Care Provider] - Palliative Quality Palliative Quality: Screen for Code Status: Yes, Screen for Goals of Care: Yes, Screen for Pain: Yes, If Pain Regimen Started, Initiate Bowel Regimen: Yes, Screen for Nausea/Vomitting: Yes Code Status: 08/31/17 00:34 Resuscitation Status: Active [RES] Routine Comment: Resuscitation Status: Full Code 08/31/17 08:55 DNR [Resuscitation Status: Active] [RES] Routine Resuscitation Status: DNR-Comfort Care Comment: <Emory Lopez Ravindra - Last Filed: 08/31/17 11:36> Date of Encounter: 08/31/17 Palliative-CN HPI - Data of Consult Requesting Physician: Thais Schulz Primary Care Provider: David Sadler MD - Consult Narrative History of present illness: Ms. Whelan is a 67 year old female CC: Thais Schulz Palliative Care-Exam - Constitutional Vitals: Temp Pulse Resp BP Pulse Ox 96 F L 70 10 135/62 97 08/31/17 08:37 08/31/17 11:00 08/31/17 11:00 08/31/17 11:00 08/31/17 11:00 Internal Medicine - CN: Reslt - Labs CBC & Chem 7: 08/31/17 04:12 08/31/17 08:00 Labs: Short CBC 08/31/17 Range/Units 04:12 WBC 4.6 (4.3-11.1) K/mcL Hgb 7.7 L (11.5-15.4) g/dL Hct 24.3 L (35.3-44.9) % Plt Count 104 L (140-400) K/mcL Neutrophils # 3.1 (1.6-8.9) K/mcL BMP 08/31/17 08/31/17 08/31/17 00:53 04:12 06:12 Sodium 133 L Potassium 6.9 H* 6.8 H* 6.5 H* Chloride 109 H Carbon Dioxide 21 L BUN 35 H Creatinine 1.93 H Glucose 50 L Calcium 9.8 08/31/17 08:00 Sodium Potassium 6.7 H* Chloride Carbon Dioxide BUN Creatinine Glucose Calcium - ABG Interpretation ABG results: PT/INR, D-dimer PT 13.0 Seconds (9.4-12.1) H 08/30/17 21:12 - Impressions Impressions Abdomen/Pelvis CT 08/31/17 06:17 IMPRESSION: Findings consistent with hepatic cirrhosis and portal venous hypertension including splenomegaly and moderate ascites. Ascites has increased since prior CT abdomen and pelvis. Patchy left lower lobe ground-glass opacity with trace left pleural effusion. This may represent airspace consolidation from pneumonia or focal atelectasis. Recommend correlation with clinical symptoms of pneumonia. Mildly prominent loops of small and large bowel throughout the abdomen and pelvis with air-fluid levels in the small bowel. No evidence of bowel obstruction, however, findings may represent diffuse ileus. Enteritis is also in the differential. Subacute healing traumatic fractures of the right acetabulum and right pubic rami. Prior ORIF of the right hip and right lower ribs. Extensive atherosclerotic calcifications. D/ / 08/31/2017 10:43:19 Jun Kirk MD / marie Interpreting Provider: Jun Kirk MD - Attending Attestation I examined this patient and my medical decision-making was reviewed with the Resident Physician. I agree with the documented findings, disposition and treatment plan as described except to the extent set forth below. Palliative Quality Code Status: 08/31/17 00:34 Resuscitation Status: Active [RES] Routine Comment: Resuscitation Status: Full Code 08/31/17 08:55 DNR [Resuscitation Status: Active] [RES] Routine Comment: Resuscitation Status: DNR-Comfort Care
--- NOTE | 2017-08-31 09:16 | Nephrology Consult Note ---
Date of Encounter: 08/31/17 Time of Encounter: 09:13 Assessment and Plan (1) Hyperkalemia Current Visit: Yes Status: Acute On admission K+ was 7.8 with reported EKG changes, EKG record is not found. Patient has been given 2x Kayexalate last at 6 AM, Insulin, D50, albuterol. Last K+ was 6.7 at 8AM today, up from 6.5 at 6AM. patient is hypovolemic on exam, and would not suggest Lasix at this point. - continue to check K+ q2hrs. Kayexalate takes a few hours to bind K+ and to excrete K+ - calcium gluconate ordered - continue insulin, glucose, kayexalate, and albuterol treatments - EKG ordered this AM shows no EKG findings of hyperK (2) Frail elderly Current Visit: Yes Status: Acute per primary team (3) Liver cirrhosis Current Visit: Yes Status: Chronic per primary team Qualifiers: Hepatic cirrhosis type: unspecified hepatic cirrhosis Ascites presence: with ascites Qualified Code(s): K74.60 - Unspecified cirrhosis of liver (4) Pancytopenia Current Visit: Yes Status: Chronic per primary team. (5) Anemia Current Visit: Yes Status: Chronic chronic. per primary team Qualifiers: Anemia type: unspecified type Qualified Code(s): D64.9 - Anemia, unspecified (6) Chronic kidney disease Current Visit: Yes Status: Acute known hx of CKD. Patient is not currently in BLANKA. Cr baseline is 1.75-2.00. Qualifiers: Chronic kidney disease stage: stage 3 (moderate) Qualified Code(s): N18.3 - Chronic kidney disease, stage 3 (moderate) History of Present Illness - Reason for Consult hyperkalemia Requesting physician: Gabo Moss - Chief Complaint AMS/UTI - History of Present Illness Ms Cleopatra lopez 67 yo F w/ PMHx of cirrhosis and chronic anemia presented to [facility] with AMS in the setting of UTI. Nephrology is consulted due to patient's hyperkalemia. Patient is a poor historian and history is from chart review. Patient is seen and examined. She is only able to communicate that she feels cold. Past Med Surg Social Fam HX - Past Medical History Medical history: arthritis, CHF, diabetes, hypertension, migraine, osteoporosis , renal disease, thyroid disease, other Psychiatric history: anxiety, depression - Past Surgical History Surgical History: appendectomy, , cholecystectomy, hysterectomy, orthopedic, other, other - Social History Smoking Status: Never smoker Smokeless Tobacco Status: No Alcohol use: none Drug use: none - Family History Father Family Member Ethnicity: Non- Living Status: Hx Family Cardiac Disorders: Yes (Heart disease, stroke) Mother Family Member Ethnicity: Non- Living Status: Hx Family Cardiac Disorders: Yes (CHF) Hx Family Respiratory Disorders: No Hx Family Cancer: Yes (Pancreatic ca) Hx Family GI Disorders: No Hx Family Endocrine Disorder: Yes (DM) Hx Family Neuromuscular Disorders: No Hx Family Neurologic Disorders: No Hx Family HEENT Disorders: No Hx Family Autoimmune Disorders: No Medications and Allergies FLUoxetine HCl [Prozac] 40 mg PO DAILY 01/18/15 [History] amLODIPine [Norvasc] 5 mg PO DAILY 12/10/15 [History] Amitriptyline [Elavil] 50 mg PO HS 09/14/16 [History] Furosemide [Lasix] 40 mg PO BID 09/14/16 [History] Omeprazole [PriLOSEC] 20 mg PO DAILY 09/14/16 [History] Folic Acid 1 mg PO DAILY #30 tablet 11/17/16 [Rx] Midodrine [ProAmatine] 5 mg PO TID 04/28/17 [History] OxyCODONE ER (12 HR) [OxyCONTIN] 40 mg PO QAM 04/28/17 [History] OxyCODONE ER (12 HR) [OxyCONTIN] 50 mg PO QPM 04/28/17 [History] OxyCODONE Immed Rel [Roxicodone 5 MG] 5 mg PO Q6H PRN #20 tablet 04/28/17 [Rx] Acetaminophen [Tylenol 650mg SUPP] 650 mg RC Q4H PRN 08/04/17 [History] Bisacodyl [Dulcolax] 10 mg RC DAILY PRN 08/04/17 [History] Haloperidol 0.5 mg PO Q2H PRN 08/04/17 [History] Hyoscyamine SL [Levsin Sl] 0.125 - 0.25 mg SL Q2H PRN 08/04/17 [History] LORazepam [Ativan] 0.5 mg PO Q4H PRN 08/04/17 [History] Lactulose [Enulose] 20 gm PO BID 08/04/17 [History] Morphine Oral CONC [Roxanol] 5 mg PO Q4H PRN 08/04/17 [History] Nadolol 10 mg PO BID 08/04/17 [History] Promethazine [Phenergan] 25 mg RC Q6H PRN 08/04/17 [History] Levothyroxine [Synthroid] 100 mcg PO DAILY tablet 08/07/17 [Rx] Spironolactone [Aldactone] 100 mg PO DAILY tablet 08/07/17 [Rx] 3 Allergy/AdvReac Type Severity Reaction Status Date / Time metoclopramide [From Reglan] Allergy Rash Verified 07/12/17 09:16 Penicillins Allergy Rash Verified 07/12/17 09:16 Review of Systems ROS unobtainable: due to mental status Exam - Vital Signs Vital signs: Initial Vital Signs Temp Pulse Resp BP Pulse Ox 97.9 F 80 16 130/77 97 08/30/17 20:17 08/30/17 20:17 08/30/17 20:17 08/30/17 20:17 08/30/17 20:17 Vital Signs - Last 8 Hours Temp Pulse Resp BP Pulse Ox 08/31/17 08:37 96 F L 08/31/17 08:00 68 10 140/65 100 08/31/17 07:00 64 129/58 100 08/31/17 06:00 64 10 99/50 100 08/31/17 05:10 97.1 F L 08/31/17 05:00 66 14 141/65 100 08/31/17 04:00 73 14 159/75 100 08/31/17 03:00 69 12 120/54 100 08/31/17 02:31 16 120/54 100 08/31/17 02:03 71 12 131/50 97 Intake and Output 08/30/17 08/31/17 08/31/17 23:59 07:59 15:59 Intake Total 110 / 110 820.2 / 820.2 Output Total 250 / 250 0 / 0 Balance 110 / 110 570.2 / 570.2 0 / 0 Intake: IV Fluids 110 / 110 820.2 / 820.2 HumuLIN R 10 UNIT In Normal 20.2 / 20.2 Saline Flush 10 ML @ 1212 mls/ hr IV ONCE ONE Rx#:[id number] 0.9 % Sodium Chloride 1,000 ML 600 / 600 @ 3750 mls/hr IVC .Q16M ONE Rx# :[id number] Calcium Chloride 1,000 MG In 0. 110 / 110 9 % Sodium Chloride 100 ML @ 100 mls/hr IVPB ONCE ONE Rx#: [id number] Cipro Premix 400 MG/200 ML 400 200 / 200 mg In 200 ml @ 200 mls/hr IVPB ONCE ONE Rx#:[id number] Oral 0 / 0 Output: Urine 250 / 250 0 / 0 Other: Blood Glucose* 65 97 - General Appearance General appearance: cachectic, fatigue, frail EENT: mucous membranes dry Neck: no JVD Respiratory: clear Cardiology: no murmurs, no rub, no gallops, no edema, regular rate, regular rhythm, normal S1, normal S2 Integumentary: cool/clammy Neurologic: confused, disoriented Results - Lab Results 08/31/17 04:12 08/31/17 08:00 Most recent lab results Calcium 9.8 mg/dL (8.6-10.3) 08/31/17 04:12 Consult Discharge Plan - Plan Referrals: David Sadler MD [Primary Care Provider] -
[2017-08-31] MEDS ORDERED: Albuterol 2.5 MG/3 ML NEBULIZER IH STA (12:17)
[2017-08-31] MEDS ORDERED: Insulin Human Regular 10 UNIT in 0.9 % Sodium Chloride 10 ML IV STA (12:25)
[2017-08-31] MEDS ORDERED: *HR* Dextrose 50 % in Water (Syg) 50 ML SYRINGE IVP STA (12:27)
[2017-08-31] MEDS ORDERED: *HR* LORazepam 0.5 MG TABLET PO PRN (13:29)
[2017-08-31] MEDS ORDERED: Bisacodyl 10 MG RECTAL SUPPOSITORY RC PRN (13:29)
[2017-08-31] MEDS ORDERED: Furosemide 40 MG TABLET PO SCH (13:30)
[2017-08-31] MEDS: Lactulose Oral Soln 20 GM/30 ML UDC PO SCH ×2 (15:18→21:31)
[2017-08-31] MEDS: Furosemide 40 MG TABLET PO SCH (16:56)
--- NOTE | 2017-08-31 20:41 | Event Note ---
Date of Encounter: 08/31/17 Time of Encounter: 20:36 S: Patient had no acute events overnight. Patient is more awake and alert this morning. She is oriented to person, but not place or time. Family is in room today. We discussed patient status and prognosis. I spoke with hospice nurse and family has agreed to go back to home hospice. She denies any complaints this AM. She denies chest pain, SOB, fever, or chills. She still feels "weak. " O: Vitals - Temp 97.0 degrees F., HR 78, RR 16, BP 152/64, O2 sat 100% on RA Gen - Awake, alert, no acute distress HEENT - NCAT, PERRLA, EOMI, hearing grossly intact, oropharynx benign Resp - Normal WOB, CTAB, no W/R/R CV - RRR, normal S1 and S2, no M/R/G, no BLE edema GI - Soft, NT/ND, no masses, normal bowel sounds, no HSP Skin - Warm, dry, no rashes/lesions/ulcers Psych - Normal mood and affect, no depression or anxiety A/P: 1) Hyperkalemia - K trended down then slightly up again. Continue kayexelate; no BM per nursing staff. Give another dose of inhaled albuterol, and dextrose + insulin. Continue calcium gluconate. No cardiac abnormalities at this time. Continue Q2H potassium checks. Check BMP in AM. 2) Liver Cirrhosis - Palliative care consulted; appreciate input. Patient elects to go back home with home hospice.
--- NOTE | 2017-08-31 21:08 | Event Note ---
Date of Encounter: 08/31/17 Time of Encounter: 21:03 Review of today's encounter, patient and family spoke to palliative care and decided to change code status to DNR comfort care. The plan will be for patient to be discharged back home with [facility]. I spoke with the family and they are in agreement and understanding of this. Because she is DNR comfort care we will remove cardiac monitoring despite her still in the intensive care unit. She is also due for her nighttime oxycodone 40 mg which was ordered. We will resume home medications. The patient did have a large bowel movement. There was a recent abnormal blood value potassium 7.3, we will discontinue any further blood testing. My attending Dr. Schulz is in agreement with this plan. I had a long and extensive conversation with the patient's Nicolas, the patient, and the patient's brother and they are in understanding and agreement. I also offered marble installation helper services to the patient and family and they kindly denied at this time. No further questions at this time.
[2017-08-31] MEDS ORDERED: *HR* OxyCODONE ER (12 HR) 40 MG TABLET PO ONE (21:23)
[2017-08-31] MEDS ORDERED: *HR* OxyCODONE ER (12 HR) 20 MG TABLET PO ONE (21:45)
[2017-08-31] MEDS ORDERED: Hyoscyamine SL 0.125 MG TAB.SUBL SL PRN ×2 (23:23→23:32)
[2017-09-01] MEDS: *HR* OxyCODONE Immed Rel 5 MG TABLET PO PRN ×2 (00:12→20:32)
--- NOTE | 2017-09-01 06:39 | Electrocardiograph Report ---
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
--- NOTE | 2017-09-01 08:01 | Electrocardiograph Report ---
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
[2017-09-01] MEDS: FLUoxetine 20 MG CAPSULE PO SCH (08:16)
[2017-09-01] MEDS: *HR* OxyCODONE ER (12 HR) 20 MG TABLET PO SCH (08:17)
[2017-09-01] MEDS: Furosemide 40 MG TABLET PO SCH ×2 (08:17→16:51)
[2017-09-01] MEDS: Lactulose Oral Soln 20 GM/30 ML UDC PO SCH ×2 (08:17→20:31)
[2017-09-01] MEDS: amLODIPine 5 MG TABLET PO SCH (08:17)
[2017-09-01] MEDS: Folic Acid 1 MG TABLET PO SCH (08:17)
--- NOTE | 2017-09-01 08:57 | Palliative Progress Note ---
<Kimberly Webber - Last Filed: 09/01/17 08:55> Date of Encounter: 09/01/17 Time of Encounter: 08:55 - Assessment and plan (1) Counseling regarding advanced care planning and goals of care Current Visit: No Status: Acute Assessment and plan: code status changed to DNRCC patient will be discharged back home with [facility], patient and family voiced understanding, all questions were answered. They have no concerns at this time. (2) Liver cirrhosis Current Visit: Yes Status: Chronic Assessment and plan: Meld score:20, 6% estiimated 3 month mortality. Qualifiers: Hepatic cirrhosis type: unspecified hepatic cirrhosis Ascites presence: with ascites Qualified Code(s): K74.60 - Unspecified cirrhosis of liver (3) Hyperkalemia Current Visit: Yes Status: Acute (4) BLANKA (acute kidney injury) Current Visit: No Status: Acute (5) Weakness Current Visit: No Status: Acute (6) Pancytopenia Current Visit: Yes Status: Chronic - Time Spent With Patient Total time spent is greater than 50% in coordination of care (as documented) at patient's floor/unit and/or counseling patient: - Subjective Interval history: 59-year-old female evaluated at bedside. Patient was sitting up in bed and eating breakfast. She admits to some nausea without vomiting, it admits to diarrhea, denies fevers chills chest pain or shortness of breath. - Constitutional Vitals: Abnormal lab results RBC 2.25 M/mcL (3.82-4.97) L 08/31/17 04:12 Hgb 7.7 g/dL (11.5-15.4) L 08/31/17 04:12 Hct 24.3 % (35.3-44.9) L 08/31/17 04:12 MCV 108.0 fL (83.0-100.0) H 08/31/17 04:12 MCH 34.2 pg (28.0-33.3) H 08/31/17 04:12 RDW 16.1 % (11.5-14.5) H 08/31/17 04:12 Plt Count 104 K/mcL (140-400) L 08/31/17 04:12 Nucleated RBCs/100 WBC 0.7 /100 WBC (0) H 08/31/17 04:12 PT 13.0 Seconds (9.4-12.1) H 08/30/17 21:12 Sodium 133 mEq/L (136-145) L 08/31/17 04:12 Potassium 7.3 mEq/L (3.5-5.1) H* 08/31/17 19:22 Chloride 109 mEq/L (98-107) H 08/31/17 04:12 Carbon Dioxide 21 mEq/L (23-29) L 08/31/17 04:12 BUN 35 mg/dL (8-23) H 08/31/17 04:12 Creatinine 1.93 mg/dL (0.60-1.20) H 08/31/17 04:12 Est GFR ( Amer) 31 (> 60) L 08/31/17 04:12 Est GFR (Non-Af Amer) 26 (> 60) L 08/31/17 04:12 Glucose 50 mg/dL (70-105) L 08/31/17 04:12 POC Glucose 107 (58-89) H 09/01/17 04:25 Total Bilirubin 1.1 mg/dL (0.3-1.0) H 08/30/17 21:12 Alkaline Phosphatase 228 Units/L (34-104) H 08/30/17 21:12 Ammonia 57 mcmol/L (16-53) H 08/30/17 21:12 Albumin 3.2 g/dL (3.5-5.7) L 08/30/17 21:12 Globulin 4.1 g/dL (2.4-3.5) H 08/30/17 21:12 Albumin/Globulin Ratio 0.8 (1.1-2.2) L 08/30/17 21:12 Urine Clarity Turbid (Clear) A 08/30/17 20:51 Urine Blood Small (Negative) H 08/30/17 20:51 Ur Leukocyte Esterase Large (Negative) H 08/30/17 20:51 Urine Microscopic RBC 5-15 per hpf (0-3) H 08/30/17 20:51 Urine Microscopic WBC TNTC per hpf (0-3) H 08/30/17 20:51 Ur Squamous Epith Cells Many per lpf (None-Few) H 08/30/17 20:51 Urine Bacteria Many per hpf (None-Few) H 08/30/17 20:51 General appearance: Present: no acute distress, thin - Head Head exam: Present: atraumatic, normocephalic - Neck Neck exam: Present: normal inspection. Absent: tenderness - Respiratory Respiratory exam: Present: CTAB - Cardiovascular Cardiovascular exam: Present: RRR, +S1, +S2 - GI/Abdominal GI/Abdominal exam: Present: distended, firm, normal bowel sounds, tenderness - Extremities Exam Extremities exam: Absent: pedal edema, tenderness - Neurological Exam Neurological exam: Present: alert, oriented X3, no focal deficits - Psychiatric Psychiatric exam: Present: normal affect, normal mood - Skin Skin exam: Present: intact Palliative Quality Palliative Quality: Screen for Code Status: Yes, Screen for Goals of Care: Yes, Screen for Pain: Yes, If Pain Regimen Started, Initiate Bowel Regimen: Yes, Screen for Nausea/Vomitting: Yes - Labs CBC & Chem 7: 08/31/17 04:12 08/31/17 19:22 Labs: Laboratory Results - last 24 hr 08/31/17 08/31/17 08/31/17 16:53 19:22 20:13 Potassium 7.3 H* POC Glucose 132 H 160 H 08/31/17 08/31/17 09/01/17 23:57 23:58 00:27 Potassium POC Glucose 46 L* 51 L 72 09/01/17 04:25 Potassium POC Glucose 107 H - ABG Interpretation ABG results: PT/INR, D-dimer PT 13.0 Seconds (9.4-12.1) H 08/30/17 21:12 Consult Discharge Plan - Plan Referrals: David Sadler MD [Primary Care Provider] - <Emory Lopez - Last Filed: 09/01/17 13:02> Date of Encounter: 09/01/17 - Time Spent With Patient Total time spent is greater than 50% in coordination of care (as documented) at patient's floor/unit and/or counseling patient: - Constitutional Vitals: Abnormal lab results RBC 2.25 M/mcL (3.82-4.97) L 08/31/17 04:12 Hgb 7.7 g/dL (11.5-15.4) L 08/31/17 04:12 Hct 24.3 % (35.3-44.9) L 08/31/17 04:12 MCV 108.0 fL (83.0-100.0) H 08/31/17 04:12 MCH 34.2 pg (28.0-33.3) H 08/31/17 04:12 RDW 16.1 % (11.5-14.5) H 08/31/17 04:12 Plt Count 104 K/mcL (140-400) L 08/31/17 04:12 Nucleated RBCs/100 WBC 0.7 /100 WBC (0) H 08/31/17 04:12 PT 13.0 Seconds (9.4-12.1) H 08/30/17 21:12 Sodium 133 mEq/L (136-145) L 08/31/17 04:12 Potassium 6.4 mEq/L (3.5-5.1) H 09/01/17 10:25 Chloride 109 mEq/L (98-107) H 08/31/17 04:12 Carbon Dioxide 21 mEq/L (23-29) L 08/31/17 04:12 BUN 35 mg/dL (8-23) H 08/31/17 04:12 Creatinine 1.93 mg/dL (0.60-1.20) H 08/31/17 04:12 Est GFR ( Amer) 31 (> 60) L 08/31/17 04:12 Est GFR (Non-Af Amer) 26 (> 60) L 08/31/17 04:12 Glucose 50 mg/dL (70-105) L 08/31/17 04:12 POC Glucose 107 (58-89) H 09/01/17 04:25 Total Bilirubin 1.1 mg/dL (0.3-1.0) H 08/30/17 21:12 Alkaline Phosphatase 228 Units/L (34-104) H 08/30/17 21:12 Ammonia 57 mcmol/L (16-53) H 08/30/17 21:12 Albumin 3.2 g/dL (3.5-5.7) L 08/30/17 21:12 Globulin 4.1 g/dL (2.4-3.5) H 08/30/17 21:12 Albumin/Globulin Ratio 0.8 (1.1-2.2) L 08/30/17 21:12 Urine Clarity Turbid (Clear) A 08/30/17 20:51 Urine Blood Small (Negative) H 08/30/17 20:51 Ur Leukocyte Esterase Large (Negative) H 08/30/17 20:51 Urine Microscopic RBC 5-15 per hpf (0-3) H 08/30/17 20:51 Urine Microscopic WBC TNTC per hpf (0-3) H 08/30/17 20:51 Ur Squamous Epith Cells Many per lpf (None-Few) H 08/30/17 20:51 Urine Bacteria Many per hpf (None-Few) H 08/30/17 20:51 - Attending Attestation I examined this patient and my medical decision-making was reviewed with the Resident Physician. I agree with the documented findings, disposition and treatment plan as described except to the extent set forth below. - Labs CBC & Chem 7: 08/31/17 04:12 09/01/17 10:25 Labs: Laboratory Results - last 24 hr 08/31/17 08/31/17 08/31/17 16:53 19:22 20:13 Potassium 7.3 H* POC Glucose 132 H 160 H 08/31/17 08/31/17 09/01/17 23:57 23:58 00:27 Potassium POC Glucose 46 L* 51 L 72 09/01/17 09/01/17 04:25 10:25 Potassium 6.4 H POC Glucose 107 H - ABG Interpretation ABG results: PT/INR, D-dimer PT 13.0 Seconds (9.4-12.1) H 08/30/17 21:12
[2017-09-01] MEDS ORDERED: Albuterol 2.5 MG/3 ML NEBULIZER IH STA (10:00)
[2017-09-01] MEDS ORDERED: *HR* Dextrose 50 % in Water (Syg) 50 ML SYRINGE IVP STA ×2 (10:00→19:57)
[2017-09-01] MEDS ORDERED: Insulin Human Regular 10 UNIT in 0.9 % Sodium Chloride 10 ML IV STA ×2 (10:01→19:57)
--- NOTE | 2017-09-01 10:32 | Electrocardiograph Report ---
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
[2017-09-01 14:17] LABS: Basophils % 0.3 %; Hematocrit 21.1 % (35.3-44.9); Hemoglobin 7.1 g/dL (11.5-15.4); Immature Granulocytes % 0.8 % (0-4); Lymphocytes # 0.9 K/mcL (0.6-4.6); Lymphocytes % 25.9 %; Mean Corpuscular HGB Conc 33.6 g/dL (31.6-35.5); Mean Corpuscular Hemoglobin 35.1 pg (28.0-33.3); Mean Corpuscular Volume 104.5 fL (83.0-100.0); Mean Platelet Volume 10.9 fL (9.4-12.4); Monocytes % 15.2 %; Neutrophils # 2.1 K/mcL (1.6-8.9); Platelet Count 83 K/mcL (140-400); Red Blood Count 2.02 M/mcL (3.82-4.97); Red Cell Distribution Width 15.9 % (11.5-14.5); Segmented Neutrophils % 57.8 %
[2017-09-01 14:18] LABS: Monocytes # 0.6 K/mcL (0.0-1.3)
[2017-09-01 14:31] LABS: Calcium 9.4 mg/dL (8.6-10.3); Potassium 5.9 mEq/L (3.5-5.1)
--- NOTE | 2017-09-01 15:58 | Event Note ---
Date of Encounter: 09/01/17 Time of Encounter: 15:57 Patient has transitioned to hospice. Will sign off. Please call if questions or concerns.
[2017-09-01] MEDS ORDERED: *HR* OxyCODONE ER (12 HR) 20 MG TABLET PO ONE (19:52)
--- NOTE | 2017-09-01 20:02 | Internal Med Progress Note ---
Date of Encounter: 09/01/17 Time of Encounter: 09:47 - Assessment and plan (1) Hyperkalemia Current Visit: Yes Status: Acute Assessment and plan: Moderate improvement yesterday, back up somewhat again today. Increase inhaled albuterol to BID. Continue kayexalate daily; BM should improve now with addition of home lactulose. Continue dextrose and insulin PRN. Continue Q4H K checks. Recheck BMP in AM. (2) Chronic kidney disease Current Visit: Yes Status: Chronic Assessment and plan: Nephrology consulted; appreciate input. Cr at baseline. Will monitor. Qualifiers: Chronic kidney disease stage: stage 3 (moderate) Qualified Code(s): N18.3 - Chronic kidney disease, stage 3 (moderate) (3) Anemia Current Visit: Yes Status: Chronic Assessment and plan: Chronic issue. Hgb down to 7.1. No signs of bleeding. Will obtain hemoccult. Will transfuse if Hgb < 7.0 or symptomatic. Recheck CBC in AM. Qualifiers: Anemia type: unspecified type Qualified Code(s): D64.9 - Anemia, unspecified (4) Liver cirrhosis Current Visit: Yes Status: Chronic Assessment and plan: Improved orientation. Palliative consulted; appreciate input. Patient plans to go back home with home hospice. Qualifiers: Hepatic cirrhosis type: unspecified hepatic cirrhosis Ascites presence: with ascites Qualified Code(s): K74.60 - Unspecified cirrhosis of liver (5) Pancytopenia Current Visit: Yes Status: Chronic Assessment and plan: Chronic issue. Continue to monitor. (6) DVT prophylaxis Current Visit: Yes Status: Acute Assessment and plan: Continue SCDs due to anemia. - Time Spent With Patient less than 15 minutes - Subjective Interval history: Patient had no acute events overnight. She states that she feels much better this AM. She is more alert and fully oriented. is in room again today. She plans on going home with home hospice. She denies chest pain, palpitations, SOB, fever, or chills. She has no other complaints. - Constitutional Vitals: Temp Pulse Resp BP Pulse Ox 97.5 F L 74 18 100/52 100 09/01/17 08:09 09/01/17 04:00 09/01/17 10:46 09/01/17 04:00 09/01/17 10:46 General appearance: Present: cooperative, A&O X 3, pleasant, no acute distress, answers questions appropriately - Respiratory Respiratory exam: Present: CTAB. Absent: accessory muscle use, rales, rhonchi, wheezes Additional comments: Normal WOB - Cardiovascular Cardiovascular exam: Present: RRR, +S1, +S2. Absent: diastolic murmur, gallop, rubs, systolic murmur Additional comments: No BLE edema - GI/Abdominal GI/Abdominal exam: Present: normal bowel sounds, soft. Absent: distended, hepatomegaly, mass, splenomegaly, tenderness - Psychiatric Psychiatric exam: Present: normal affect, normal mood. Absent: anxious, depressed - Skin Skin exam: Present: dry, intact, warm. Absent: cyanosis, rash Internal Medicine: Result - Labs CBC & Chem 7: 09/01/17 14:00 09/01/17 18:03 Labs: Short CBC 09/01/17 Range/Units 14:00 WBC 3.6 L (4.3-11.1) K/mcL Hgb 7.1 L (11.5-15.4) g/dL Hct 21.1 L (35.3-44.9) % Plt Count 83 L (140-400) K/mcL Neutrophils # 2.1 (1.6-8.9) K/mcL BMP 08/31/17 09/01/17 09/01/17 19:22 10:25 14:00 Sodium 136 Potassium 7.3 H* 6.4 H 5.9 H Chloride 109 H Carbon Dioxide 21 L BUN 31 H Creatinine 1.92 H Glucose 90 Calcium 9.4 09/01/17 18:03 Sodium Potassium 6.2 H Chloride Carbon Dioxide BUN Creatinine Glucose Calcium - ABG Interpretation ABG results: PT/INR, D-dimer PT 13.0 Seconds (9.4-12.1) H 08/30/17 21:12 - VTE Documentation of Mechanical Device: Intermittent pneumatic compression device Consult Discharge Plan - Plan Referrals: David Sadler MD [Primary Care Provider] -
[2017-09-01] MEDS ORDERED: *HR* Promethazine 25 MG/ML VIAL IVP PRN (20:49)
[2017-09-01] MEDS: D5% in 0.9% NACL 1,000 ML IVC SCH (21:36)
[2017-09-01] MEDS: Albuterol 2.5 MG/3 ML NEBULIZER IH SCH (22:10)
[2017-09-02 02:54] LABS: Sodium, Urine 83.1 mEq/L
[2017-09-02 06:50] LABS: Immature Granulocytes % 0.8 % (0-4); Mean Platelet Volume 10.5 fL (9.4-12.4); Red Blood Count 1.88 M/mcL (3.82-4.97)
[2017-09-02 06:52] LABS: Hematocrit 20.2 % (35.3-44.9); Hemoglobin 6.7 g/dL (11.5-15.4); Immature Platelets 2.2 % (1.1-6.1); Lymphocytes % 39.9 %; Mean Corpuscular HGB Conc 33.2 g/dL (31.6-35.5); Mean Corpuscular Hemoglobin 35.6 pg (28.0-33.3); Mean Corpuscular Volume 107.4 fL (83.0-100.0); Monocytes # 0.4 K/mcL (0.0-1.3); Monocytes % 16.7 %; Neutrophils # 1.1 K/mcL (1.6-8.9); Red Cell Distribution Width 15.9 % (11.5-14.5); Segmented Neutrophils % 42.6 %
[2017-09-02 06:54] LABS: Calcium 8.7 mg/dL (8.6-10.3)
[2017-09-02 06:57] LABS: Platelet Count 73 K/mcL (140-400)
--- NOTE | 2017-09-02 07:55 | Palliative Progress Note ---
<Kimberly Webber - Last Filed: 09/02/17 07:53> Date of Encounter: 09/02/17 Time of Encounter: 07:53 - Assessment and plan (1) Counseling regarding advanced care planning and goals of care Current Visit: No Status: Acute Assessment and plan: code status changed to DNRCC patient will be discharged back home with [facility], all questions were answered. Family has no concerns at this time. (2) Liver cirrhosis Current Visit: Yes Status: Chronic Assessment and plan: Meld score:20, 6% estimated 3 month mortality. Qualifiers: Hepatic cirrhosis type: unspecified hepatic cirrhosis Ascites presence: with ascites Qualified Code(s): K74.60 - Unspecified cirrhosis of liver (3) Hyperkalemia Current Visit: Yes Status: Resolved Assessment and plan: Resolved (4) BLANKA (acute kidney injury) Current Visit: No Status: Resolved Assessment and plan: Resolved. Creatinine appears to be at baseline. (5) Weakness Current Visit: No Status: Acute (6) Pancytopenia Current Visit: Yes Status: Chronic - Time Spent With Patient Total time spent is greater than 50% in coordination of care (as documented) at patient's floor/unit and/or counseling patient: - Subjective Interval history: 59-year-old female evaluated at bedside. She reports nausea and denies any new problems today.. - Constitutional Vitals: Abnormal lab results WBC 2.6 K/mcL (4.3-11.1) L 09/02/17 05:57 RBC 1.88 M/mcL (3.82-4.97) L 09/02/17 05:57 Hgb 6.7 g/dL (11.5-15.4) L 09/02/17 05:57 Hct 20.2 % (35.3-44.9) L 09/02/17 05:57 MCV 107.4 fL (83.0-100.0) H 09/02/17 05:57 MCH 35.6 pg (28.0-33.3) H 09/02/17 05:57 RDW 15.9 % (11.5-14.5) H 09/02/17 05:57 Plt Count 73 K/mcL (140-400) L 09/02/17 05:57 Neutrophils # 1.1 K/mcL (1.6-8.9) L 09/02/17 05:57 Nucleated RBCs/100 WBC 0.7 /100 WBC (0) H 08/31/17 04:12 PT 13.0 Seconds (9.4-12.1) H 08/30/17 21:12 Chloride 108 mEq/L (98-107) H 09/02/17 05:57 BUN 31 mg/dL (8-23) H 09/02/17 05:57 Creatinine 1.88 mg/dL (0.60-1.20) H 09/02/17 05:57 Est GFR ( Amer) 32 (> 60) L 09/02/17 05:57 Est GFR (Non-Af Amer) 27 (> 60) L 09/02/17 05:57 Glucose 108 mg/dL (70-105) H 09/02/17 05:57 POC Glucose 124 (58-89) H 09/02/17 05:45 Total Bilirubin 1.1 mg/dL (0.3-1.0) H 08/30/17 21:12 Alkaline Phosphatase 228 Units/L (34-104) H 08/30/17 21:12 Ammonia 57 mcmol/L (16-53) H 08/30/17 21:12 Albumin 3.2 g/dL (3.5-5.7) L 08/30/17 21:12 Globulin 4.1 g/dL (2.4-3.5) H 08/30/17 21:12 Albumin/Globulin Ratio 0.8 (1.1-2.2) L 08/30/17 21:12 Urine Clarity Turbid (Clear) A 08/30/17 20:51 Urine Blood Small (Negative) H 08/30/17 20:51 Ur Leukocyte Esterase Large (Negative) H 08/30/17 20:51 Urine Microscopic RBC 5-15 per hpf (0-3) H 08/30/17 20:51 Urine Microscopic WBC TNTC per hpf (0-3) H 08/30/17 20:51 Ur Squamous Epith Cells Many per lpf (None-Few) H 08/30/17 20:51 Urine Bacteria Many per hpf (None-Few) H 08/30/17 20:51 General appearance: Present: no acute distress, thin - Head Head exam: Present: atraumatic, normocephalic - Respiratory Respiratory exam: Present: CTAB - Cardiovascular Cardiovascular exam: Present: RRR, +S1, +S2 - GI/Abdominal GI/Abdominal exam: Present: normal bowel sounds, soft. Absent: distended, tenderness - Extremities Exam Extremities exam: Absent: pedal edema - Neurological Exam Neurological exam: Present: alert, oriented X3, no focal deficits - Psychiatric Psychiatric exam: Present: normal affect, normal mood - Skin Skin exam: Present: intact Palliative Quality Palliative Quality: Screen for Code Status: Yes, Screen for Goals of Care: Yes, Screen for Pain: Yes, If Pain Regimen Started, Initiate Bowel Regimen: Yes, Screen for Nausea/Vomitting: Yes - Labs CBC & Chem 7: 09/02/17 05:57 09/02/17 05:57 Labs: Laboratory Results - last 24 hr 09/01/17 09/01/17 09/01/17 10:25 14:00 14:00 WBC 3.6 L RBC 2.02 L Hgb 7.1 L Hct 21.1 L MCV 104.5 H MCH 35.1 H MCHC 33.6 RDW 15.9 H Plt Count 83 L MPV 10.9 Immature Gran % 0.8 Seg Neutrophils % 57.8 Lymphocytes % 25.9 Monocytes % 15.2 Eosinophils % 0.0 Basophils % 0.3 Neutrophils # 2.1 Lymphocytes # 0.9 Monocytes # 0.6 Eosinophils # 0.0 Basophils # 0.0 Immature Plt Fraction Sodium 136 Potassium 6.4 H 5.9 H Chloride 109 H Carbon Dioxide 21 L BUN 31 H Creatinine 1.92 H Est GFR ( Amer) 31 L Est GFR (Non-Af Amer) 26 L BUN/Creatinine Ratio 16 Glucose 90 POC Glucose Calculated Osmolality 288 Calcium 9.4 Urine Creatinine Urine Sodium 09/01/17 09/01/17 09/01/17 18:03 21:09 22:58 WBC RBC Hgb Hct MCV MCH MCHC RDW Plt Count MPV Immature Gran % Seg Neutrophils % Lymphocytes % Monocytes % Eosinophils % Basophils % Neutrophils # Lymphocytes # Monocytes # Eosinophils # Basophils # Immature Plt Fraction Sodium Potassium 6.2 H 5.2 H Chloride Carbon Dioxide BUN Creatinine Est GFR ( Amer) Est GFR (Non-Af Amer) BUN/Creatinine Ratio Glucose POC Glucose 144 H Calculated Osmolality Calcium Urine Creatinine Urine Sodium 09/02/17 09/02/17 09/02/17 01:11 01:50 02:20 WBC RBC Hgb Hct MCV MCH MCHC RDW Plt Count MPV Immature Gran % Seg Neutrophils % Lymphocytes % Monocytes % Eosinophils % Basophils % Neutrophils # Lymphocytes # Monocytes # Eosinophils # Basophils # Immature Plt Fraction Sodium Potassium 5.1 Chloride Carbon Dioxide BUN Creatinine Est GFR ( Amer) Est GFR (Non-Af Amer) BUN/Creatinine Ratio Glucose POC Glucose 97 H Calculated Osmolality Calcium Urine Creatinine 34 Urine Sodium 83.1 09/02/17 09/02/17 09/02/17 05:45 05:57 05:57 WBC 2.6 L RBC 1.88 L Hgb 6.7 L Hct 20.2 L MCV 107.4 H MCH 35.6 H MCHC 33.2 RDW 15.9 H Plt Count 73 L MPV 10.5 Immature Gran % 0.8 Seg Neutrophils % 42.6 Lymphocytes % 39.9 Monocytes % 16.7 Eosinophils % 0.0 Basophils % 0.0 Neutrophils # 1.1 L Lymphocytes # 1.0 Monocytes # 0.4 Eosinophils # 0.0 Basophils # 0.0 Immature Plt Fraction 2.2 Sodium 136 Potassium 5.0 Chloride 108 H Carbon Dioxide 24 BUN 31 H Creatinine 1.88 H Est GFR ( Amer) 32 L Est GFR (Non-Af Amer) 27 L BUN/Creatinine Ratio 16 Glucose 108 H POC Glucose 124 H Calculated Osmolality 289 Calcium 8.7 Urine Creatinine Urine Sodium 09/02/17 05:57 WBC RBC Hgb Hct MCV MCH MCHC RDW Plt Count MPV Immature Gran % Seg Neutrophils % Lymphocytes % Monocytes % Eosinophils % Basophils % Neutrophils # Lymphocytes # Monocytes # Eosinophils # Basophils # Immature Plt Fraction Sodium Potassium 5.0 Chloride Carbon Dioxide BUN Creatinine Est GFR ( Amer) Est GFR (Non-Af Amer) BUN/Creatinine Ratio Glucose POC Glucose Calculated Osmolality Calcium Urine Creatinine Urine Sodium - ABG Interpretation ABG results: PT/INR, D-dimer PT 13.0 Seconds (9.4-12.1) H 08/30/17 21:12 Consult Discharge Plan - Plan Referrals: David Sadler MD [Primary Care Provider] - <Emory Lopez - Last Filed: 09/02/17 08:02> Date of Encounter: 09/02/17 - Time Spent With Patient Total time spent is greater than 50% in coordination of care (as documented) at patient's floor/unit and/or counseling patient: - Constitutional Vitals: Abnormal lab results WBC 2.6 K/mcL (4.3-11.1) L 09/02/17 05:57 RBC 1.88 M/mcL (3.82-4.97) L 09/02/17 05:57 Hgb 6.7 g/dL (11.5-15.4) L 09/02/17 05:57 Hct 20.2 % (35.3-44.9) L 09/02/17 05:57 MCV 107.4 fL (83.0-100.0) H 09/02/17 05:57 MCH 35.6 pg (28.0-33.3) H 09/02/17 05:57 RDW 15.9 % (11.5-14.5) H 09/02/17 05:57 Plt Count 73 K/mcL (140-400) L 09/02/17 05:57 Neutrophils # 1.1 K/mcL (1.6-8.9) L 09/02/17 05:57 Nucleated RBCs/100 WBC 0.7 /100 WBC (0) H 08/31/17 04:12 PT 13.0 Seconds (9.4-12.1) H 08/30/17 21:12 Chloride 108 mEq/L (98-107) H 09/02/17 05:57 BUN 31 mg/dL (8-23) H 09/02/17 05:57 Creatinine 1.88 mg/dL (0.60-1.20) H 09/02/17 05:57 Est GFR ( Amer) 32 (> 60) L 09/02/17 05:57 Est GFR (Non-Af Amer) 27 (> 60) L 09/02/17 05:57 Glucose 108 mg/dL (70-105) H 09/02/17 05:57 POC Glucose 124 (58-89) H 09/02/17 05:45 Total Bilirubin 1.1 mg/dL (0.3-1.0) H 08/30/17 21:12 Alkaline Phosphatase 228 Units/L (34-104) H 08/30/17 21:12 Ammonia 57 mcmol/L (16-53) H 08/30/17 21:12 Albumin 3.2 g/dL (3.5-5.7) L 08/30/17 21:12 Globulin 4.1 g/dL (2.4-3.5) H 08/30/17 21:12 Albumin/Globulin Ratio 0.8 (1.1-2.2) L 08/30/17 21:12 Urine Clarity Turbid (Clear) A 08/30/17 20:51 Urine Blood Small (Negative) H 08/30/17 20:51 Ur Leukocyte Esterase Large (Negative) H 08/30/17 20:51 Urine Microscopic RBC 5-15 per hpf (0-3) H 08/30/17 20:51 Urine Microscopic WBC TNTC per hpf (0-3) H 08/30/17 20:51 Ur Squamous Epith Cells Many per lpf (None-Few) H 08/30/17 20:51 Urine Bacteria Many per hpf (None-Few) H 08/30/17 20:51 - Attending Attestation I examined this patient and my medical decision-making was reviewed with the Resident Physician. I agree with the documented findings, disposition and treatment plan as described except to the extent set forth below. - Labs CBC & Chem 7: 09/02/17 05:57 09/02/17 05:57 Labs: Laboratory Results - last 24 hr 09/01/17 09/01/17 09/01/17 10:25 14:00 14:00 WBC 3.6 L RBC 2.02 L Hgb 7.1 L Hct 21.1 L MCV 104.5 H MCH 35.1 H MCHC 33.6 RDW 15.9 H Plt Count 83 L MPV 10.9 Immature Gran % 0.8 Seg Neutrophils % 57.8 Lymphocytes % 25.9 Monocytes % 15.2 Eosinophils % 0.0 Basophils % 0.3 Neutrophils # 2.1 Lymphocytes # 0.9 Monocytes # 0.6 Eosinophils # 0.0 Basophils # 0.0 Immature Plt Fraction Sodium 136 Potassium 6.4 H 5.9 H Chloride 109 H Carbon Dioxide 21 L BUN 31 H Creatinine 1.92 H Est GFR ( Amer) 31 L Est GFR (Non-Af Amer) 26 L BUN/Creatinine Ratio 16 Glucose 90 POC Glucose Calculated Osmolality 288 Calcium 9.4 Urine Creatinine Urine Sodium 09/01/17 09/01/17 09/01/17 18:03 21:09 22:58 WBC RBC Hgb Hct MCV MCH MCHC RDW Plt Count MPV Immature Gran % Seg Neutrophils % Lymphocytes % Monocytes % Eosinophils % Basophils % Neutrophils # Lymphocytes # Monocytes # Eosinophils # Basophils # Immature Plt Fraction Sodium Potassium 6.2 H 5.2 H Chloride Carbon Dioxide BUN Creatinine Est GFR ( Amer) Est GFR (Non-Af Amer) BUN/Creatinine Ratio Glucose POC Glucose 144 H Calculated Osmolality Calcium Urine Creatinine Urine Sodium 09/02/17 09/02/17 09/02/17 01:11 01:50 02:20 WBC RBC Hgb Hct MCV MCH MCHC RDW Plt Count MPV Immature Gran % Seg Neutrophils % Lymphocytes % Monocytes % Eosinophils % Basophils % Neutrophils # Lymphocytes # Monocytes # Eosinophils # Basophils # Immature Plt Fraction Sodium Potassium 5.1 Chloride Carbon Dioxide BUN Creatinine Est GFR ( Amer) Est GFR (Non-Af Amer) BUN/Creatinine Ratio Glucose POC Glucose 97 H Calculated Osmolality Calcium Urine Creatinine 34 Urine Sodium 83.1 09/02/17 09/02/17 09/02/17 05:45 05:57 05:57 WBC 2.6 L RBC 1.88 L Hgb 6.7 L Hct 20.2 L MCV 107.4 H MCH 35.6 H MCHC 33.2 RDW 15.9 H Plt Count 73 L MPV 10.5 Immature Gran % 0.8 Seg Neutrophils % 42.6 Lymphocytes % 39.9 Monocytes % 16.7 Eosinophils % 0.0 Basophils % 0.0 Neutrophils # 1.1 L Lymphocytes # 1.0 Monocytes # 0.4 Eosinophils # 0.0 Basophils # 0.0 Immature Plt Fraction 2.2 Sodium 136 Potassium 5.0 Chloride 108 H Carbon Dioxide 24 BUN 31 H Creatinine 1.88 H Est GFR ( Amer) 32 L Est GFR (Non-Af Amer) 27 L BUN/Creatinine Ratio 16 Glucose 108 H POC Glucose 124 H Calculated Osmolality 289 Calcium 8.7 Urine Creatinine Urine Sodium 09/02/17 05:57 WBC RBC Hgb Hct MCV MCH MCHC RDW Plt Count MPV Immature Gran % Seg Neutrophils % Lymphocytes % Monocytes % Eosinophils % Basophils % Neutrophils # Lymphocytes # Monocytes # Eosinophils # Basophils # Immature Plt Fraction Sodium Potassium 5.0 Chloride Carbon Dioxide BUN Creatinine Est GFR ( Amer) Est GFR (Non-Af Amer) BUN/Creatinine Ratio Glucose POC Glucose Calculated Osmolality Calcium Urine Creatinine Urine Sodium - ABG Interpretation ABG results: PT/INR, D-dimer PT 13.0 Seconds (9.4-12.1) H 08/30/17 21:12
[2017-09-02] MEDS: Albuterol 2.5 MG/3 ML NEBULIZER IH SCH ×2 (08:00→20:26)
[2017-09-02 08:49] LABS: Hematocrit 21.6 % (35.3-44.9); Hemoglobin 7.4 g/dL (11.5-15.4)
[2017-09-02] MEDS: Lactulose Oral Soln 20 GM/30 ML UDC PO SCH ×2 (09:18→19:51)
[2017-09-02] MEDS: *HR* OxyCODONE ER (12 HR) 20 MG TABLET PO SCH (09:18)
[2017-09-02] MEDS: Furosemide 40 MG TABLET PO SCH ×2 (09:19→16:02)
[2017-09-02] MEDS: amLODIPine 5 MG TABLET PO SCH (09:19)
[2017-09-02] MEDS: Folic Acid 1 MG TABLET PO SCH (09:19)
[2017-09-02] MEDS: FLUoxetine 20 MG CAPSULE PO SCH (09:19)
[2017-09-02] MEDS: D5% in 0.9% NACL 1,000 ML IVC SCH (16:03)
[2017-09-02 17:21] VITALS: BP 157/71
--- NOTE | 2017-09-02 18:25 | Discharge Summary ---
- NOTES TO OUTPATIENT PROVIDER Notes to Outpatient Provider: Follow up with PCP/hospice physician in 2-3 days after discharge. BMP (hyperkalemia) and CBC (anemia) can be rechecked at that time. She has been discharged on kayexalate daily; based on labwork, this can be discontinued if K remains normal or low. Orders not resulted at time of discharge: Pending orders 09/02/17 19:15 Hgb/Hct [Hemoglobin and Hematocrit] [HEME] Timed 09/03/17 04:00 Basic Metabolic Panel AM 0400 CBC [Complete Blood Count] [HEME] AM 0400 Date of Encounter: 09/02/17 Time of Encounter: 18:22 - Discharge Diagnosis (1) Hyperkalemia Priority: Primary Status: Resolved Comments: Resolved. K = 5.0 this AM. Patient asymptomatic. Will discharge home on kayexelate 30 g PO QD. BMP should be rechecked at follow up with PCP/hospice physician in 2-3 days after discharge; kayexelate can be discontinued at that time if normal or low K. (2) Chronic kidney disease Priority: Secondary Status: Chronic Qualifiers: Chronic kidney disease stage: stage 3 (moderate) Qualified Code(s): N18.3 - Chronic kidney disease, stage 3 (moderate) (3) Anemia Priority: Secondary Status: Chronic Qualifiers: Anemia type: unspecified type Qualified Code(s): D64.9 - Anemia, unspecified (4) Liver cirrhosis Priority: Secondary Status: Chronic Qualifiers: Hepatic cirrhosis type: unspecified hepatic cirrhosis Ascites presence: with ascites Qualified Code(s): K74.60 - Unspecified cirrhosis of liver (5) Pancytopenia Priority: Secondary Status: Chronic (6) DVT prophylaxis Priority: Secondary Status: Acute Hospital course: Ms. Whelan is a 67 year old female admitted for hyperkalemia. She was admitted to ICU and started on calcium gluconate, kayexalate, albuterol inhaled , dextrose and insulin, and Q2H potassium checks. EKG with no further changes after admission. Nephrology was consulted for CKD. She has chronic anemia, with Hgb in low 7s this admission. Potassium improved with initial treatment, but then increased again. Treatments reordered again, and potassium subsequently trended down again. She was a previous home hospice patient for end stage liver disease, so palliative care was consulted. She was made DNR- CC. She was reaccepted to [facility] hospice. On day of discharge, potassium normalized to 5.0. Hgb decreased to 6.7. She was given 2 units PRBCs. Repeat H/H is pending. Will discharge pending repeat Hgb > 7.5. Patient wants to go home, and has no complaints today. She will follow up with PCP/hospice physician in 2-3 days after discharge. BMP (hyperkalemia) and CBC ( anemia) can be rechecked at that time. She will be discharged on kayexalate daily; based on labwork, this can be discontinued if K remains normal or low. Patient has met maximum benefit of this hospitalization and will be discharged home in stable condition. Discharge discussed with: patient, family, nurse, other (Pharmacist) - Time Spent with Patient Total time spent providing and/or coordinating discharge services: Greater than 30 minutes - Discharge Medications Prescriptions: Sodium Polystyrene Sulfonate [Kayexalate] 30 gm PO 0700 7 Days #7 bottle Home Medications: FLUoxetine HCl [Prozac] 40 mg PO DAILY 01/18/15 [History] amLODIPine [Norvasc] 5 mg PO DAILY 12/10/15 [History] Amitriptyline [Elavil] 50 mg PO HS 09/14/16 [History] Furosemide [Lasix] 40 mg PO BID 09/14/16 [History] Omeprazole [PriLOSEC] 20 mg PO DAILY 09/14/16 [History] Folic Acid 1 mg PO DAILY #30 tablet 11/17/16 [Rx] Midodrine [ProAmatine] 5 mg PO TID 04/28/17 [History] OxyCODONE ER (12 HR) [OxyCONTIN] 40 mg PO QAM 04/28/17 [History] OxyCODONE ER (12 HR) [OxyCONTIN] 50 mg PO QPM 04/28/17 [History] OxyCODONE Immed Rel [Roxicodone 5 MG] 5 mg PO Q6H PRN #20 tablet 04/28/17 [Rx] Acetaminophen [Tylenol 650mg SUPP] 650 mg RC Q4H PRN 08/04/17 [History] Bisacodyl [Dulcolax] 10 mg RC DAILY PRN 08/04/17 [History] Haloperidol 0.5 mg PO Q2H PRN 08/04/17 [History] Hyoscyamine SL [Levsin Sl] 0.125 - 0.25 mg SL Q2H PRN 08/04/17 [History] LORazepam [Ativan] 0.5 mg PO Q4H PRN 08/04/17 [History] Lactulose [Enulose] 20 gm PO BID 08/04/17 [History] Morphine Oral CONC [Roxanol] 5 mg PO Q4H PRN 08/04/17 [History] Nadolol 10 mg PO BID 08/04/17 [History] Promethazine [Phenergan] 25 mg RC Q6H PRN 08/04/17 [History] Levothyroxine [Synthroid] 100 mcg PO DAILY tablet 08/07/17 [Rx] Sodium Polystyrene Sulfonate [Kayexalate] 30 gm PO 0700 7 Days #7 bottle [Rx] Allergies/Adverse Reactions: 3 Allergy/AdvReac Type Severity Reaction Status Date / Time metoclopramide [From Reglan] Allergy Rash Verified 07/12/17 09:16 Penicillins Allergy Rash Verified 07/12/17 09:16 Date of admission: 08/31/17 14:54 Primary care physician: David Sadler MD Consults: Palliative Care, Nephrology Discharging clinician: Americo Bonilla Anticipated date of discharge: 09/02/17 - Constitutional Vitals: Temp Pulse Resp BP Pulse Ox 100.4 F H 88 18 157/71 98 09/02/17 17:19 09/02/17 17:19 09/02/17 17:19 09/02/17 17:19 09/02/17 17:19 General appearance: Present: cooperative, A&O X 3, pleasant, no acute distress, answers questions appropriately - Respiratory Respiratory exam: Present: CTAB. Absent: accessory muscle use, rales, rhonchi, wheezes Additional comments: Normal WOB - Cardiovascular Cardiovascular exam: Present: RRR, +S1, +S2. Absent: diastolic murmur, gallop, rubs, systolic murmur Additional comments: No BLE edema - GI/Abdominal GI/Abdominal exam: Present: normal bowel sounds, soft. Absent: distended, hepatomegaly, mass, splenomegaly, tenderness - Psychiatric Psychiatric exam: Present: normal affect, normal mood. Absent: anxious, depressed - Skin Skin exam: Present: dry, intact, warm. Absent: cyanosis, rash Additional comments: Mild jaundice - Patient Status Disposition: Hospice - Home Condition: Fair Overall status at discharge: patient is progressing back to baseline - Discharge Instructions Follow Up With: David Sadler MD [Primary Care Provider] - Additional Instructions: Follow up with PCP/hospice physician in 2-3 days after discharge. BMP ( hyperkalemia) and CBC (anemia) can be rechecked at that time. She has been discharged on kayexalate daily; based on labwork, this can be discontinued if K remains normal or low. - Diet and Activity Activity: resume usual activities as tolerated Diet: other (Renal, Low Potassium) - VTE Documentation of Mechanical Device: Intermittent pneumatic compression device
--- NOTE | 2017-09-02 19:00 | Physician Discharge Referral ---
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 For more information, call the [place] Tobacco Quit Line at 4-763-WZUQ-NOW. - Diet/Nutrition Diet/Nutrition Orders: Renal Diet/Nutrition: List: Low Potassium - Activity Activity Orders: Up ad lj - Services Needed Following services are medically necessary services: Nursing - Transfer Medications Prescriptions: Sodium Polystyrene Sulfonate [Kayexalate] 30 gm PO 0700 7 Days #7 bottle Home Medications: FLUoxetine HCl [Prozac] 40 mg PO DAILY 01/18/15 [History] amLODIPine [Norvasc] 5 mg PO DAILY 12/10/15 [History] Amitriptyline [Elavil] 50 mg PO HS 09/14/16 [History] Furosemide [Lasix] 40 mg PO BID 09/14/16 [History] Omeprazole [PriLOSEC] 20 mg PO DAILY 09/14/16 [History] Folic Acid 1 mg PO DAILY #30 tablet 11/17/16 [Rx] Midodrine [ProAmatine] 5 mg PO TID 04/28/17 [History] OxyCODONE ER (12 HR) [OxyCONTIN] 40 mg PO QAM 04/28/17 [History] OxyCODONE ER (12 HR) [OxyCONTIN] 50 mg PO QPM 04/28/17 [History] OxyCODONE Immed Rel [Roxicodone 5 MG] 5 mg PO Q6H PRN #20 tablet 04/28/17 [Rx] Acetaminophen [Tylenol 650mg SUPP] 650 mg RC Q4H PRN 08/04/17 [History] Bisacodyl [Dulcolax] 10 mg RC DAILY PRN 08/04/17 [History] Haloperidol 0.5 mg PO Q2H PRN 08/04/17 [History] Hyoscyamine SL [Levsin Sl] 0.125 - 0.25 mg SL Q2H PRN 08/04/17 [History] LORazepam [Ativan] 0.5 mg PO Q4H PRN 08/04/17 [History] Lactulose [Enulose] 20 gm PO BID 08/04/17 [History] Morphine Oral CONC [Roxanol] 5 mg PO Q4H PRN 08/04/17 [History] Nadolol 10 mg PO BID 08/04/17 [History] Promethazine [Phenergan] 25 mg RC Q6H PRN 08/04/17 [History] Levothyroxine [Synthroid] 100 mcg PO DAILY tablet 08/07/17 [Rx] Sodium Polystyrene Sulfonate [Kayexalate] 30 gm PO 0700 7 Days #7 bottle [Rx] Allergies/Adverse Reactions: 3 Allergy/AdvReac Type Severity Reaction Status Date / Time metoclopramide [From Reglan] Allergy Rash Verified 07/12/17 09:16 Penicillins Allergy Rash Verified 07/12/17 09:16 Certification: Further, I certify that my clinical findings support that this patient is homebound (i.e. absences from home require considerable and taxing effort and are for medical reasons or zoroastrianism services or infrequently or short duration when for other reasons) because: end stage liver disease and CKD. Homebound Reason: Patient requires assistance of a person or device to safely leave home, Leaving home requires considerable and taxing effort due to condition Attestation: My signature below is to certify that this patient is under my care and that I, or nurse practitioner, or a physician's malt specifications control assistant working with me, has a face-to -face encounter with this patient.
[2017-09-02 19:08] LABS: Hematocrit 28.8 % (35.3-44.9)
[2017-09-02 19:09] LABS: Hemoglobin 9.8 g/dL (11.5-15.4)
[2017-09-02] MEDS: *HR* OxyCODONE Immed Rel 5 MG TABLET PO PRN (19:50)
== END 2017-09-02 23:17 | disposition hospice, home (50) | DRG 640 ==
LOC: 1NENULAB 20:16 → EMEROO 20:16 → 1NENULAB 08-31 00:04 → ICNU 08-31 00:30 → 2ANU 09-01 19:51
PROVIDERS: ADMIT Internal Medicine Nephrology; ATTEND Internal Medicine Nephrology

== ENCOUNTER 2019-02-16 14:09 | Inpatient (IN) ==
--- NOTE | 2019-02-16 15:31 | Emergency Department Note ---
Disposition Clinical Impression: Anasarca Congestive heart failure Qualifiers: Heart failure type: diastolic Heart failure chronicity: unspecified Qualified Code(s): I50.30 - Unspecified diastolic (congestive) heart failure Anemia Qualifiers: Anemia type: unspecified type Qualified Code(s): D64.9 - Anemia, unspecified Dyspnea Qualifiers: Dyspnea type: shortness of breath Qualified Code(s): R06.02 - Shortness of breath Disposition: Admitted As Inpatient Condition: Fair Time of Disposition: 17:45 SOB HPI - General Chief Complaint: ED Shortness of Breath/Dyspnea Stated Complaint: SOB/ Adema Time Seen by Provider: 02/16/19 14:13 Source: EMS Mode of arrival: EMS Limitations: altered mental status Nursing Notes Reviewed: Yes Vital Signs Reviewed: Yes - History of Present Illness 68-year-old female with a past medical history of stage V kidney disease and liver failure on hospice that presents for increasing shortness of breath over the last 3-4 weeks. Patient's at bedside states that approximately 4 months ago she had fluid drained off her and that she could breathe a lot better after this procedure. He states that he is interested in having her fluid drained off again and wants a port placed in her so that the home health nurse can drain the fluid off her as needed. Patient herself is only alert and oriented to self, does not know day or place. Patient complains of pain all over. She does not appear to have a lot of insight into her own medical conditions. at bedside reports that he thinks that she is a DNR comfort care arrest but states he does not have any paperwork and has never been given any paperwork. - Related Data Home Medications Medication Instructions Recorded Confirmed Omeprazole [PriLOSEC] 20 mg PO DAILY 09/14/16 02/16/19 Acetaminophen [Tylenol 650mg SUPP] 650 mg RC Q4H PRN 08/04/17 02/16/19 Bisacodyl [Dulcolax] 10 mg RC DAILY PRN 08/04/17 02/16/19 Lactulose [Enulose] 20 gm PO QID 08/04/17 02/16/19 Nadolol 10 mg PO BID 08/04/17 02/16/19 Promethazine [Phenergan] 25 mg RC Q6H PRN 08/04/17 02/16/19 traZODone [TraZODone] 50 mg PO HS 12/06/18 02/16/19 FLUoxetine HCl [Fluoxetine HCl] 40 mg PO DAILY 12/07/18 02/16/19 Haloperidol 0.5 mg PO Q2H PRN 12/07/18 02/16/19 Levothyroxine [Synthroid] 100 mcg PO QAM 12/07/18 02/16/19 Midodrine [ProAmatine] 5 mg PO TID 12/07/18 02/16/19 Oxycodone HCl [Oxycontin] 10 mg PO TID 12/07/18 02/16/19 Oxycodone HCl [Oxycontin] 40 mg PO TID 12/07/18 02/16/19 Promethazine [Phenergan] 25 mg PO Q12H PRN 12/07/18 02/16/19 Previous Rx's Medication Instructions Recorded Folic Acid 1 mg PO DAILY #30 tablet 11/17/16 OxyCODONE Immed Rel [Roxicodone 5 5 mg PO Q6H PRN #20 tablet 04/28/17 MG] Furosemide [Lasix] 60 mg PO BID #60 tablet 12/09/18 Allergies Allergy/AdvReac Type Severity Reaction Status Date / Time metoclopramide [From Reglan] Allergy Rash Verified 07/12/17 09:16 Penicillins Allergy Rash Verified 07/12/17 09:16 Review of Systems: In addition to that documented in the HPI above, the additional ROS was obtained from the : Constitutional: Denies fevers or chills CV: Denies chest pain Resp: Reports SOB GI: Denies vomiting Reports one episode of diarrhea 3 days ago : Reports decreased urination MSK: Denies recent falls Skin: Denies new rashes Past Medical History - Past Medical History Attestation: Yes The following information was validated with the patient. Medical history: Reports: arthritis, CHF, diabetes, hypertension, migraine, osteoporosis, renal disease, thyroid disease, other Surgical history: Reports: appendectomy, , cholecystectomy, hysterectomy, orthopedic, other, other Psychiatric history: Reports: anxiety, depression TRAUMA COORDINATOR history: Reports: no TRAUMA COORDINATOR history - Social History Smoking Status: Never smoker Smokeless Tobacco Status: No Alcohol use: Reports: none Drug use: Reports: none Physical Exam General: Drowsy but arousable. Only A&O to self. Does not have insight into her condition. Edematous but cachetic. Head: atraumatic, normocephalic. ENT: No conjunctival injection, no scleral icterus. PERRLA. EOMI. Oropharynx non- erythematous. mucous membranes dry. Neuro: Unable to assess Pulm: Bibasilar rales. No focal consolidation. Cardio: RRR with pansystolic murmur. Chest tender to palpation. Abd: Non-distended, but RLQ and LLQ have palpable masses that are tender to touch. Epigastric mass. Pt does not have a fluid wave. No audible bowel sounds. Extremities: Radial pulses 1+ hansel, hansel 3+ pitting edema to level of hips. Skin: Very dry, diffuse flaking skin. Multiple areas of ecchymosis. Psych: Unable to assess. - General Limitations: altered mental status Course Vital Signs Temperature 98.6 F 02/16/19 14:22 Pulse Rate 61 02/16/19 14:22 Respiratory Rate 16 02/16/19 14:22 Blood Pressure 145/54 02/16/19 14:22 O2 Sat by Pulse Oximetry 95 02/16/19 14:22 Temperature 97.7 F 02/17/19 00:01 Pulse Rate 61 02/17/19 00:01 Respiratory Rate 12 02/17/19 00:01 Blood Pressure 155/70 02/17/19 00:01 O2 Sat by Pulse Oximetry 100 02/17/19 00:01 Oxygen Delivery Oxygen Delivery Nasal Cannula Shortness of Breath/Dyspnea - [facility] Narrative Medical decision making narrative: 68F with Pmhx of ESRD and liver failure that presents for increasing SOB over the last 3-4 weeks. thinks she needs a paracentesis. Will obtain Ct of Abd/Pelvis, CBC, BMP, LFTs, EKG, CXR, EKG. Pts CT did not show any significant need for paracentesis at this time but did show anasarca. Additionally, patient's blood work showed a anemia and given patient's shortness of breath this. To be symptomatic anemia. A type and screen was ordered as well as 2 units of packed red blood cells. Patient lacked IV access at this time. Multiple attempts at peripheral IVs were started, but were ultimately unsuccessful. My attending attempted to place multiple midlines using ultrasound guidance but this also was unsuccessful. I moved the patient into the trauma bay to attempt to place a central line, however ultrasound did not reveal any internal jugulars that appeared appropriate for central lines. I attempted to place an external jugular IV on the left side of her neck but this IV while in the vein which was, confirmed by ultrasound would not flush. My attending placed a right-sided EJ which was functional. Patient was admitted to the hospitalist Dr. Brown who agreed to accept the patient to his care. Dr. Brown was informed that the family was interested in speaking with palliative and signing a DNR. Family was kept informed of the patient's lab results, and were made aware that her prognosis was limited. - Medical Records Medical records reviewed: Yes I reviewed the patient's medical records. - Lab Data Lab results reviewed: Yes I reviewed the patient's lab results. Result diagrams: 02/16/19 15:39 02/16/19 15:39 Lab Results 02/16/19 02/16/19 02/16/19 Range/Units 15:39 15:39 15:39 WBC 2.9 L (4.3-11.1) K/mcL RBC 2.07 L (3.82-4.97) M/mcL Hgb 6.8 L (11.5-15.4) g/dL Hct 21.9 L (35.3-44.9) % MCV 105.8 H (83.0-100.0) fL MCH 32.9 (28.0-33.3) pg MCHC 31.1 L (31.6-35.5) g/dL RDW 17.0 H (11.5-14.5) % Plt Count 44 L (140-400) K/mcL MPV 11.1 (9.4-12.4) fL Immature Gran % 0.7 (0-4) % Seg Neutrophils % 67.5 % Lymphocytes % 21.8 % Monocytes % 10.0 % Eosinophils % 0.0 % Basophils % 0.0 % Neutrophils # 2.0 (1.6-8.9) K/mcL Lymphocytes # 0.6 (0.6-4.6) K/mcL Monocytes # 0.3 (0.0-1.3) K/mcL Eosinophils # 0.0 (0.0-0.6) K/mcL Basophils # 0.0 (0.0-0.2) K/mcL Immature Plt Fraction 3.1 (1.1-6.1) % PT (9.4-12.1) Seconds INR APTT (26.0-36.0) Seconds Sodium 138 (136-145) mEq/L Potassium 4.1 (3.5-5.1) mEq/L Chloride 104 (98-107) mEq/L Carbon Dioxide 30 H (23-29) mEq/L BUN 52 H (8-23) mg/dL Creatinine 2.53 H (0.60-1.20) mg/dL Est GFR ( Amer) 23 L (> 60) Est GFR (Non-Af Amer) 19 L (> 60) BUN/Creatinine Ratio 21 (6-26) Glucose 158 H (70-105) mg/dL Calculated Osmolality 303 H (280-300) Lactic Acid 1.0 (0.5-2.2) mmol/L Calcium 8.4 L (8.6-10.3) mg/dL Total Bilirubin 0.8 (0.3-1.0) mg/dL Direct Bilirubin 0.3 H (0.0-0.2) mg/dL Indirect Bilirubin 0.5 (0.0-1.2) mg/dL AST 17 (13-39) Units/L ALT 8 (7-52) Units/L Alkaline Phosphatase 79 (34-104) Units/L Troponin I < 0.03 (< 0.04) ng/mL B-Natriuretic Peptide (Less than 100) pg/mL Serum Total Protein 6.8 (6.4-8.9) g/dL Albumin 2.8 L (3.5-5.7) g/dL Globulin 4.0 H (2.4-3.5) g/dL Albumin/Globulin Ratio 0.7 L (1.1-2.2) Blood Type Antibody Screen Antibody Identification MTS Gel Crossmatch 02/16/19 02/16/19 02/16/19 Range/Units 15:39 15:39 17:37 WBC (4.3-11.1) K/mcL RBC (3.82-4.97) M/mcL Hgb (11.5-15.4) g/dL Hct (35.3-44.9) % MCV (83.0-100.0) fL MCH (28.0-33.3) pg MCHC (31.6-35.5) g/dL RDW (11.5-14.5) % Plt Count (140-400) K/mcL MPV (9.4-12.4) fL Immature Gran % (0-4) % Seg Neutrophils % % Lymphocytes % % Monocytes % % Eosinophils % % Basophils % % Neutrophils # (1.6-8.9) K/mcL Lymphocytes # (0.6-4.6) K/mcL Monocytes # (0.0-1.3) K/mcL Eosinophils # (0.0-0.6) K/mcL Basophils # (0.0-0.2) K/mcL Immature Plt Fraction (1.1-6.1) % PT 13.7 H (9.4-12.1) Seconds INR 1.2 APTT 33.7 (26.0-36.0) Seconds Sodium (136-145) mEq/L Potassium (3.5-5.1) mEq/L Chloride (98-107) mEq/L Carbon Dioxide (23-29) mEq/L BUN (8-23) mg/dL Creatinine (0.60-1.20) mg/dL Est GFR ( Amer) (> 60) Est GFR (Non-Af Amer) (> 60) BUN/Creatinine Ratio (6-26) Glucose (70-105) mg/dL Calculated Osmolality (280-300) Lactic Acid (0.5-2.2) mmol/L Calcium (8.6-10.3) mg/dL Total Bilirubin (0.3-1.0) mg/dL Direct Bilirubin (0.0-0.2) mg/dL Indirect Bilirubin (0.0-1.2) mg/dL AST (13-39) Units/L ALT (7-52) Units/L Alkaline Phosphatase (34-104) Units/L Troponin I (< 0.04) ng/mL B-Natriuretic Peptide 4502 H (Less than 100) pg/mL Serum Total Protein (6.4-8.9) g/dL Albumin (3.5-5.7) g/dL Globulin (2.4-3.5) g/dL Albumin/Globulin Ratio (1.1-2.2) Blood Type A POSITIVE Antibody Screen POSITIVE A Antibody Identification Anti-M MTS Gel Crossmatch See Detail - Radiology Data Radiology results reviewed: Yes I reviewed the patient's radiology results. Chest X-Ray 02/16/19 14:15 IMPRESSION: Bilateral perihilar opacification, CHF versus pneumonia. D/ / Keven Snowden MD / Keven Snowden MD Interpreting Provider: Keven Snowden MD Abdomen/Pelvis CT 02/16/19 14:47 IMPRESSION: Visualized lungs demonstrate changes related to pulmonary edema, including small bilateral pleural effusions. Cirrhosis and evidence of portal hypertension, including splenomegaly and small volume abdominopelvic ascites. Anasarca. D/ / 02/16/2019 16:52:56 Laurel Miller MD / homero Interpreting Provider: Laurel Miller MD - EKG Data EKG attestation: Yes I reviewed and interpreted this EKG. EKG results narrative: Heart rate 62, rhythm sinus, axis normal. OR 175, QRS 106, QTC [address] and borderline prolonged. No ST segment elevation or depression. Deep S waves in lead V2. When compared with previous EKG dated 12/06/2018 the morphology of lead V3 is changed, I question lead placement. Attestation Statement - Attestation Attestation: I, Darwin Montoya, examined this patient and my medical decision-making was reviewed with the DATA ARCHITECT MANAGER/PA/Advanced Practice Nurse/Resident Physician. I agree with the documented findings, disposition and treatment plan as described except to the extent set forth below. 68-year-old female presents emergency Department with concerns of shortness of breath and edema. Patient has bilateral pitting edema and anasarca that extends up to the abdomen. Family was concerned that she had increased shortness of breath today compared to her baseline. She has oxygen at home for use as needed. Family states she has required this throughout the day over the past 2 days. Lung exam has crackles in the bilateral bases. Chest x-ray shows significant vascular edema. Abdominal CT does not show evidence of significant ascites or other acute surgical pathology however she does have an enlarged spleen and has edema present in the peripheral tissues. Patient is resting comfortably in emergency department and is not in respiratory distress and does not require BiPAP at this time. Her creatinine is similar to her baseline. She is very vascularly depleted and it was difficult to obtain an IV in this patient. Even though she is vascular depleted she has significant edema. She is not hypoxic or hypo-tensive. Patient is supposed be a hospice patient however the wants her admitted for further evaluation. Per the family the patient does not have a living Will or power of environmental attorney that they have had discussions with palliative care in the past and wanted the patient to be DNR CCA
[2019-02-16 15:55] LABS: Hemoglobin 6.8 g/dL (11.5-15.4); Immature Granulocytes % 0.7 % (0-4); Mean Platelet Volume 11.1 fL (9.4-12.4)
[2019-02-16 15:56] LABS: Hematocrit 21.9 % (35.3-44.9); Immature Platelets 3.1 % (1.1-6.1); Lymphocytes # 0.6 K/mcL (0.6-4.6); Lymphocytes % 21.8 %; Mean Corpuscular HGB Conc 31.1 g/dL (31.6-35.5); Mean Corpuscular Hemoglobin 32.9 pg (28.0-33.3); Mean Corpuscular Volume 105.8 fL (83.0-100.0); Monocytes # 0.3 K/mcL (0.0-1.3); Red Blood Count 2.07 M/mcL (3.82-4.97); Segmented Neutrophils % 67.5 %; White Blood Count 2.9 K/mcL (4.3-11.1)
[2019-02-16 15:58] LABS: Platelet Count 44 K/mcL (140-400)
[2019-02-16 16:05] LABS: INR 1.2; Prothrombin Time 13.7 Seconds (9.4-12.1)
[2019-02-16 16:07] LABS: Activated Partial Thrombo Time 33.7 Seconds (26.0-36.0)
[2019-02-16 16:16] LABS: Alanine Aminotransferase 8 Units/L (7-52); Albumin 2.8 g/dL (3.5-5.7); Albumin/Globulin Ratio 0.7 (1.1-2.2); Alkaline Phosphatase 79 Units/L (34-104); Aspartate Amino Transferase 17 Units/L (13-39); BUN/Creatinine Ratio 21 (6-26); Bilirubin,Direct 0.3 mg/dL (0.0-0.2); Bilirubin,Indirect 0.5 mg/dL (0.0-1.2); Bilirubin,Total 0.8 mg/dL (0.3-1.0); Blood Urea Nitrogen 52 mg/dL (8-23); Calcium 8.4 mg/dL (8.6-10.3); Carbon Dioxide 30 mEq/L (23-29); Chloride 104 mEq/L (98-107); Glucose 158 mg/dL (70-105); Osmolality,Calculated 303 (280-300); Potassium 4.1 mEq/L (3.5-5.1); Sodium 138 mEq/L (136-145); Total Protein 6.8 g/dL (6.4-8.9); Troponin I < 0.03 ng/mL (< 0.04); eGFR For African Americans 23 (> 60); eGFR For Non-African Americans 19 (> 60)
[2019-02-16] MEDS ORDERED: Furosemide 40 MG/4 ML VIAL IVP ONE (17:33)
[2019-02-16 17:58] LABS: VBG Ionized Calcium 1.14 mmol/L (1.15-1.35)
[2019-02-16 18:04] LABS: VBG HCO3 28 mEq/L (21-27); VBG PCO2 41 mmHg (41-51); VBG PH 7.43 pH Units (7.32-7.42); VBG PO2 148 mmHg (25-50)
[2019-02-16] MEDS ORDERED: Naloxone 0.4 MG/ML INJ IVP PRN (18:13)
--- NOTE | 2019-02-16 18:17 | Internal Med History&Physical ---
Date of Encounter: 02/16/19 Time of Encounter: 18:13 Internal Medicine - H&P: HPI Chief complaint: shortness of breath Admitted From: Home Plans for Post Hospital Care: Hospice - Home History of present illness: Ms. Whelan is a 68 year old female with past medical history of diastolic CHF, diabetes, HTN, osteoporosis, chronic kidney disease stage III, hypothyroidism , non-alcoholic cirrhosis, anxiety, depression came with complain of shortness of breath that started this morning and abdominal and generalized aching. Patient is on [facility] for about 1-1/2 year as per and [id number] at bedside. Patient was doing fine until yesterday however this morning when she woke up she was not feeling well and asked to call the squad because she was feeling short of breath and not feeling well. No history of fevers chills nausea vomiting or diarrhea. History is not completely reliable and was obtai reyna from previous charts and ER notes as well. Patient is lethargic however arousable but could not offer any complaints. CODE STATUS was discussed with as patient not in the condition to discuss. did not want any aggressive measures however is okay to give blood in order to "keep her as long as he can". Patient was evaluated in ER and found to have severe anemia which to some extent his chronic. Past Med Surg Social Fam HX - Past Medical History Medical history: arthritis, CHF, diabetes, hypertension, migraine, osteoporosis, renal disease, thyroid disease, other Additional medical history: liver failure. kidney failure Psychiatric history: anxiety, depression - Past Surgical History Surgical History: appendectomy, , cholecystectomy, hysterectomy, orthopedic, other, other Additional surgical history: rib fx - Social History Smoking Status: Never smoker Smokeless Tobacco Status: No Alcohol use: none Drug use: none - Family History Father Family Member Ethnicity: Non- Living Status: Hx Family Cardiac Disorders: Yes (Heart disease, CVA, CABG) Hx Family Neurologic Disorders: Yes (CVA) Brother Family Member Ethnicity: Non- Living Status: Still Living Hx Family Endocrine Disorder: Yes (DM) Sister Family Member Ethnicity: Non- Living Status: Still Living Hx Family Cancer: Yes Mother Family Member Ethnicity: Non- Living Status: Hx Family Cardiac Disorders: Yes (CHF, CAD) Hx Family Respiratory Disorders: No Hx Family Cancer: Yes (Pancreatic) Hx Family GI Disorders: No Hx Family Endocrine Disorder: Yes (DM) Hx Family Neuromuscular Disorders: No Hx Family Neurologic Disorders: No Hx Family HEENT Disorders: No Hx Family Autoimmune Disorders: No Internal Medicine - H&P: Meds Omeprazole [PriLOSEC] 20 mg PO DAILY 09/14/16 [History] Folic Acid 1 mg PO DAILY #30 tablet 11/17/16 [Rx] OxyCODONE Immed Rel [Roxicodone 5 MG] 5 mg PO Q6H PRN #20 tablet 04/28/17 [Rx] Acetaminophen [Tylenol 650mg SUPP] 650 mg RC Q4H PRN 08/04/17 [History] Bisacodyl [Dulcolax] 10 mg RC DAILY PRN 08/04/17 [History] Lactulose [Enulose] 20 gm PO QID 08/04/17 [History] Nadolol 10 mg PO BID 08/04/17 [History] Promethazine [Phenergan] 25 mg RC Q6H PRN 08/04/17 [History] traZODone [TraZODone] 50 mg PO HS 12/06/18 [History] FLUoxetine HCl [Fluoxetine HCl] 40 mg PO DAILY 12/07/18 [History] Haloperidol 0.5 mg PO Q2H PRN 12/07/18 [History] Levothyroxine [Synthroid] 100 mcg PO QAM 12/07/18 [History] Midodrine [ProAmatine] 5 mg PO TID 12/07/18 [History] Oxycodone HCl [Oxycontin] 10 mg PO TID 12/07/18 [History] Oxycodone HCl [Oxycontin] 40 mg PO TID 12/07/18 [History] Promethazine [Phenergan] 25 mg PO Q12H PRN 12/07/18 [History] Furosemide [Lasix] 60 mg PO BID #60 tablet 12/09/18 [Rx] Allergy/AdvReac Type Severity Reaction Status Date / Time metoclopramide [From Reglan] Allergy Rash Verified 07/12/17 09:16 Penicillins Allergy Rash Verified 07/12/17 09:16 All Systems PM: A 10-system review of systems was performed and is negative for pertinent fin dings except as documented above in the HPI. - Constitutional Vitals: Temp Pulse Resp BP Pulse Ox 98.6 F 60 16 138/59 100 02/16/19 14:40 02/16/19 16:00 02/16/19 14:40 02/16/19 16:00 02/16/19 16:00 Exam: Constitutional: Vitals as noted. emaciated, Eyes : conjunctiva pale ENT : No JVD, Respiratory : No accessory muscle use. Diffuse crackles. Cardiovascular : RRR, +S1, +S2. ejection systolic murmur GI/Abdominal : Soft, Non-tender, Non-distended, normal bowel sounds, soft, no peritoneal signs. no orgenomegaly or mass appreciated. no hernia. Musculoskeletal: 2+ pedal edema b/l, no calf tenderness. Neurological: Arousable, AO X1, CN II-XII grossly intact, grossly normal motor and sensory exam, limited exam as patient lethargic. Skin: chronic dermatitis skin changes on LE. Internal Med - H&P Results - Labs CBC & Chem 7: 02/16/19 15:39 02/16/19 15:39 Labs: Short CBC 02/16/19 Range/Units 15:39 WBC 2.9 L (4.3-11.1) K/mcL Hgb 6.8 L (11.5-15.4) g/dL Hct 21.9 L (35.3-44.9) % Plt Count 44 L (140-400) K/mcL Neutrophils # 2.0 (1.6-8.9) K/mcL BMP 02/16/19 15:39 Sodium 138 Potassium 4.1 Chloride 104 Carbon Dioxide 30 H BUN 52 H Creatinine 2.53 H Glucose 158 H Calcium 8.4 L Cardiac Enzymes 02/16/19 Range/Units 15:39 Troponin I < 0.03 (< 0.04) ng/mL Liver Function 02/16/19 Range/Units 15:39 Total Bilirubin 0.8 (0.3-1.0) mg/dL Direct Bilirubin 0.3 H (0.0-0.2) mg/dL AST 17 (13-39) Units/L ALT 8 (7-52) Units/L Alkaline Phosphatase 79 (34-104) Units/L Albumin 2.8 L (3.5-5.7) g/dL - ABG Interpretation ABG results: 02/16/19 18:02 VBG pH 7.43 H VBG pCO2 41 VBG pO2 148 H VBG HCO3 28 H - EKG Data -: EKG Interpreted by Myself EKG shows normal: sinus rhythm (without acute ischemic changes compared to previous EKG.) - Impressions ITS Impressions Chest X-Ray 02/16/19 14:15 IMPRESSION: Bilateral perihilar opacification, CHF versus pneumonia. D/ / Keven Snowden MD / Keven Snowden MD Interpreting Provider: Keven Snowden MD Abdomen/Pelvis CT 02/16/19 14:47 IMPRESSION: Visualized lungs demonstrate changes related to pulmonary edema, including small bilateral pleural effusions. Cirrhosis and evidence of portal hypertension, including splenomegaly and small volume abdominopelvic ascites. Anasarca. D/ / 02/16/2019 16:52:56 Laurel Miller MD / homero Interpreting Provider: Laurel Miller MD - Assessment and Plan (1) Severe anemia Current Visit: Yes Status: Acute Assessment and plan: Likely secondary to her cirrhosis along with pancytopenia Has chronic anemia Will give 2 PRBC for symptomatic treatment. (2) Anasarca Current Visit: Yes Status: Acute Assessment and plan: likely secondary to CHF and cirrhosis along with CKD Continue diuresis with IV lasix (3) Dyspnea Current Visit: Yes Status: Acute Assessment and plan: likely secondary to pulmonary edema from CHF, CKD and cirrhosis Continue diuresis Qualifiers: Dyspnea type: shortness of breath Qualified Code(s): R06.02 - Shortness of breath; R06.00 - Dyspnea, unspecified; R06.01 - Orthopnea (4) CHF (congestive heart failure) Current Visit: Yes Status: Chronic Assessment and plan: diures with lasix 60 IV BID. Strict I/O Fluid restriction of 1.5 Lit Qualifiers: Heart failure type: diastolic Heart failure chronicity: unspecified Qualified Code(s): I50.30 - Unspecified diastolic (congestive) heart failure (5) Goals of care, counseling/discussion Current Visit: No Status: Acute Assessment and plan: Discussed goals of care Patient next of kin. Mentions "wants to keep mariam long as he can without putting her through pain" Agrees to not pursue any resuscitative measures. Wants to enroll in hospice after discharge. - Time Spent With Patient Total time spent is greater than 50% in coordination of care (as documented) at patient's floor/unit and/or counseling patient:
[2019-02-16] MEDS ORDERED: Furosemide 40 MG/4 ML VIAL IVP SCH (21:00)
[2019-02-16] MEDS ORDERED: Acetaminophen 650 MG RECTAL SUPP RC PRN (22:17)
[2019-02-16] MEDS ORDERED: Bisacodyl 10 MG RECTAL SUPPOSITORY RC PRN (22:17)
[2019-02-16] MEDS ORDERED: *HR* Promethazine 25 MG/ML VIAL IVP PRN (22:20)
[2019-02-16] MEDS ORDERED: *HR* OxyCODONE ER (12 HR) 20 MG TABLET PO SCH (22:30)
[2019-02-16] MEDS ORDERED: *HR* OxyCODONE ER (12 HR) 10 MG TABLET PO SCH (22:30)
[2019-02-16] MEDS ORDERED: 0.9 % Sodium Chloride 250 ML ONE (22:37)
[2019-02-16] MEDS: Lactulose Oral Soln 20 GM/30 ML UDC PO SCH (22:46)
[2019-02-17] MEDS: *HR* OxyCODONE Immed Rel 5 MG TABLET PO PRN ×3 (01:39→19:56)
[2019-02-17] MEDS: traZODone 50 MG TABLET PO SCH ×2 (01:39→19:56)
[2019-02-17] MEDS ORDERED: 0.9 % Sodium Chloride 250 ML ONE (02:00)
[2019-02-17 07:23] LABS: Basophils % 0.3 %
[2019-02-17 07:24] LABS: Calcium 8.6 mg/dL (8.6-10.3); Potassium 4.1 mEq/L (3.5-5.1)
[2019-02-17 07:25] LABS: Hematocrit 28.6 % (35.3-44.9); Hemoglobin 9.1 g/dL (11.5-15.4); Immature Granulocytes % 1.1 % (0-4); Immature Platelets 3.7 % (1.1-6.1); Lymphocytes # 0.7 K/mcL (0.6-4.6); Lymphocytes % 19.4 %; Mean Corpuscular HGB Conc 31.8 g/dL (31.6-35.5); Mean Corpuscular Volume 100.7 fL (83.0-100.0); Mean Platelet Volume 10.4 fL (9.4-12.4); Monocytes # 0.5 K/mcL (0.0-1.3); Monocytes % 13.1 %; Neutrophils # 2.4 K/mcL (1.6-8.9); Red Blood Count 2.84 M/mcL (3.82-4.97); Segmented Neutrophils % 66.1 %; White Blood Count 3.6 K/mcL (4.3-11.1)
[2019-02-17 07:49] LABS: Platelet Count 42 K/mcL (140-400)
--- NOTE | 2019-02-17 08:49 | Internal Med Progress Note ---
Hospitalist Progress Note - Encounter Date of Encounter: 02/17/19 Time of Encounter: 08:49 - Subjective Interval History: Patient seen and examined this morning at bedside. No acute overnight events. Patient slightly more animated. Is AO 1. Not able to offer any complaints. at bedside. He thinks she is slightly better. Denies new complaints. No episodes of diarrhea. - Exam Vitals: Temp Pulse Resp BP Pulse Ox 97.7 F 64 15 165/77 100 02/17/19 06:21 02/17/19 06:21 02/17/19 06:21 02/17/19 06:21 02/17/19 06:21 Exam: Constitutional: Vitals as noted. emaciated, Eyes : conjunctiva pale ENT : No JVD, Respiratory : No accessory muscle use. Diffuse crackles. Cardiovascular : RRR, +S1, +S2. ejection systolic murmur GI/Abdominal : Soft, Non-tender, Non-distended, normal bowel sounds, soft, no peritoneal signs. no orgenomegaly or mass appreciated. no hernia. Musculoskeletal: 2+ pedal edema b/l, no calf tenderness. Neurological: Arousable, AO X1, CN II-XII grossly intact, grossly normal motor and sensory exam, limited exam as patient lethargic. Skin: chronic dermatitis skin changes on LE. - Assessment and Plan (1) Severe anemia Current Visit: Yes Status: Acute (2) Anasarca Current Visit: Yes Status: Acute (3) Dyspnea Current Visit: Yes Status: Acute (4) CHF (congestive heart failure) Current Visit: Yes Status: Chronic (5) Goals of care, counseling/discussion Current Visit: No Status: Acute - Summary of Assessment and Plan Summary of Assessment and Plan: Assessment Acute Shortness of breath Severe anemia volume overload pulmonary edema Chronic DM Diastolic CHF HTN Osteoporosis CKD 3 hypothyroidism Non-alcoholic cirrhosis anxiety, depression Plan - Patient had good response to 2 units of PRBC. Anemia likely production issue. Likely secondary to her nonalcoholic cirrhosis along with pancytopenia. She was told she was not a candidate for liver transplant. No signs of active bleeding. Monitor for now. - Patient has volume overload likely secondary to her multiple comorbidities including cirrhosis, CKD and CHF. Continue on IV diuresis with Lasix 40 IV twice a day and monitor in and out. She Without Significant Ascites However with Anasarca. No Drainable Fluid in the Abdomen. Continue home midodrine, nadolol and lactulose. - Shortness of breath likely secondary to her anemia and pulmonary edema. Diuresis as above. Keep on fluid restricted diet, renal diet, monitor I/O and renal function. - Patient was enrolled in hospice before for almost 1-1/2 year. wants to continue hospice on discharge. He does not want aggressive measures and CODE STATUS days to DNR comfort care per discussion with palliative. Patient would be enrolled in hospice on discharge. Appreciate palliative care improved. Internal Medicine: Result - Labs CBC & Chem 7: 02/17/19 06:48 02/17/19 06:48 Labs: Short CBC 02/16/19 02/17/19 Range/Units 15:39 06:48 WBC 2.9 L 3.6 L (4.3-11.1) K/mcL Hgb 6.8 L 9.1 L D (11.5-15.4) g/dL Hct 21.9 L 28.6 L (35.3-44.9) % Plt Count 44 L 42 L (140-400) K/mcL Neutrophils # 2.0 2.4 (1.6-8.9) K/mcL BMP 02/16/19 02/17/19 15:39 06:48 Sodium 138 139 Potassium 4.1 4.1 Chloride 104 105 Carbon Dioxide 30 H 29 BUN 52 H 51 H Creatinine 2.53 H 2.28 H Glucose 158 H 110 H Calcium 8.4 L 8.6 Cardiac Enzymes 02/16/19 Range/Units 15:39 Troponin I < 0.03 (< 0.04) ng/mL Liver Function 02/16/19 Range/Units 15:39 Total Bilirubin 0.8 (0.3-1.0) mg/dL Direct Bilirubin 0.3 H (0.0-0.2) mg/dL AST 17 (13-39) Units/L ALT 8 (7-52) Units/L Alkaline Phosphatase 79 (34-104) Units/L Albumin 2.8 L (3.5-5.7) g/dL - ABG Interpretation ABG results: PT/INR, D-dimer PT 13.7 Seconds (9.4-12.1) H 02/16/19 15:39 - Impressions Impressions Chest X-Ray 02/16/19 14:15 IMPRESSION: Bilateral perihilar opacification, CHF versus pneumonia. D/ / Keven Snowden MD / Keven Snowden MD Interpreting Provider: Keven Sonwden MD Abdomen/Pelvis CT 02/16/19 14:47 IMPRESSION: Visualized lungs demonstrate changes related to pulmonary edema, including small bilateral pleural effusions. Cirrhosis and evidence of portal hypertension, including splenomegaly and small volume abdominopelvic ascites. Anasarca. D/ / 02/16/2019 16:52:56 Laurel Miller MD / homero Interpreting Provider: Laurel Miller MD Consult Discharge Plan - Plan Referrals: NONE,PCP [Primary Care Provider] - (3) Dyspnea Qualifiers: Dyspnea type: shortness of breath Qualified Code(s): R06.02 - Shortness of breath; R06.00 - Dyspnea, unspecified; R06.01 - Orthopnea (4) CHF (congestive heart failure) Qualifiers: Heart failure type: diastolic Heart failure chronicity: unspecified Qualified Code(s): I50.30 - Unspecified diastolic (congestive) heart failure
[2019-02-17] MEDS: *HR* OxyCODONE ER (12 HR) 20 MG TABLET PO SCH ×2 (09:26→19:56)
[2019-02-17] MEDS: Lactulose Oral Soln 20 GM/30 ML UDC PO SCH ×3 (09:26→16:00)
[2019-02-17] MEDS: Folic Acid 1 MG TABLET PO SCH (09:26)
[2019-02-17] MEDS: FLUoxetine 20 MG CAPSULE PO SCH (09:26)
[2019-02-17] MEDS: Furosemide 40 MG/4 ML VIAL IVP SCH ×2 (09:27→16:00)
[2019-02-17] MEDS ORDERED: Acetaminophen 325 MG TABLET PO PRN (10:09)
--- NOTE | 2019-02-17 10:29 | Palliative - Consult Note ---
Date of Encounter: 02/17/19 Time of Encounter: 10:26 - Assessment and Plan (1) Palliative care by specialist Current Visit: Yes Status: Acute Assessment and plan: Pt currently does not have capacity to make complex medical decisions d/t mental status. Pt's Real is LNOK. Real is at bedside today. (2) Goals of care, counseling/discussion Current Visit: No Status: Acute Assessment and plan: Pt currently on hospice care through [facility]. Spoke with [facility] home care liaison today, pt is currently listed as DNRCC. Additionally, there is paperwork from [facility] and provider notes from previous admission 09/07/2017 indicating that patient was made DNRCC that admission. We do have DNRCC paperwork scanned into chart here at [facility] from 09/07/2017. However, this paperwork is not complete as one box was not checked by signing provider. Palliative Care has reached out to [facility] to obtain copy of pt's current DNRCC paperwork as pt's requests she remain DNRCC. If [facility] is unable to send a copy today, we will complete a new form to have on file here. Pt's Real at bedside today. We discussed her clinical condition, prognosis, and treatment options in the context of her values, preferences and goals. Real confirms that she has been on hospice care at home (through [facility]) for about 1.5 years. He reports that she had been doing fairly well until her breathing worsened about 3-4 weeks ago. He reports that pt had received a parcentesis in the past which improved her breathing and he brought her to the hospital to inquire if she needed to be drained again or possibly have a permanent drainage catheter placed. Real does voice understanding that her disease is likely worsening and he continues to voice that he does not want aggressive measures performed. He voiced "I want to keep her as long as I can" but he does not wish to pursue aggressive life prolonging therapies. He continues to prioritize her comfort as most important. We discussed differences in code status of DNRCC-Arrest/DNI vs. DNRCC. Real did not initially demonstrate a good understanding of the differences between DNRCC-Arrest and DNRCC. After exploring, discussing these options and explaining that she is currently listed as DNRCC at home per [facility] paperwork, requests that she remain a DNRCC. Palliative Care will change order and work to obtain copy of current DNRCC paperwork from [facility]. We discussed home treatments for shortness of breath such as usage of her PRN oxycodone as well as using a fan to assist with her breathlessness. denies any additional questions or needs at this time. (3) Dyspnea Current Visit: Yes Status: Acute Assessment and plan: likely d/t pulmonary edema from CHF, CKD, cirrhosis. - Diuresis per primary team. - Recommend to increase frequency of home PRN 5mg PO oxycodone to Q2hr PRN for pain/and or shortness of breath. - Fan to face PRN. Qualifiers: Dyspnea type: shortness of breath Qualified Code(s): R06.02 - Shortness of breath; R06.00 - Dyspnea, unspecified; R06.01 - Orthopnea (4) Generalized pain Current Visit: Yes Status: Acute Assessment and plan: Pt currently on home dose of Oxycontin. Recommend increase in frequency to PRN oxycodone as above. (5) Anasarca Current Visit: Yes Status: Acute Assessment and plan: Likely d/t CHF and cirrhosis. Management per primary team-continued diuresis with IV Lasix. (6) CKD (chronic kidney disease), stage V Current Visit: No Status: Acute (7) CHF (congestive heart failure) Current Visit: Yes Status: Chronic Qualifiers: Heart failure type: diastolic Heart failure chronicity: unspecified Qualified Code(s): I50.30 - Unspecified diastolic (congestive) heart failure Palliative-CN HPI - Data of Consult Requesting Physician: Tatiana Miller MD Primary Care Provider: PCP NONE - Consult Narrative History of present illness: Ms. Whelan is a 68 year old female with past medical hx of CHF, diabetes, HTN, osteoporosis, CKD Stage III, hypothyroidism, non-alcoholic cirrhosis, anxiety, and depression. Pt is currently on hospice at home through [facility]. Palliative Medicine was consulted to assist with goals of care. Pt lying in bed, drowsy, easily awakens, appears comfortable with no apparent distress at time of the visit. Pt oriented to self, not oriented to time or situation. She is able to answer some questions appropriately and able to participate in conversation although she is drowsy and frequently falling asleep during discussion. Pt denies pain at the time of the visit, she is unable to answer how her breathing feels today, she reports slight tenderness to her abdomen, denies constipation or any additional symptoms or needs at this time. Goals of Care discussion with pt's as below. Pt's Real at bedside today. We discussed her clinical condition, prognosis, and treatment options in the context of her values, preferences and goals. Real confirms that she has been on hospice care at home (through [facility]) for about 1.5 years. He reports that she had been doing fairly well until her breathing worsened about 3-4 weeks ago. He reports that pt had received a parcentesis in the past which improved her breathing and he brought her to the hospital to inquire if she needed to be drained again or possibly have a permanent drainage catheter placed. Real does voice understanding that her disease is likely worsening and he continues to voice that he does not want aggressive measures performed. He voiced "I want to keep her as long as I can" but not pursue aggressive life prolonging therapies. We discussed differences in code status of DNRCC-Arrest/DNI vs. DNRCC. Real did not initially demonstrate a good understanding of the differences between DNRCC-Arrest and DNRCC. After exploring and discussing these options and explaining that she is currently listed as DNRCC at home per [facility] paperwork, requests that she remain a DNRCC. Palliative Care will change order and work to obtain copy of current DNRCC paperwork from [facility]. We discussed treatments for shortness of breath and usage of PRN oxycodone as well as a fan to assist with her breathlessness while at home. Pt and deny any additional questions or needs at this time. CC: Tatiana Miller MD - Time Spent with Patient Time: Total time spent is greater than 50% in coordination of care (as documented) at patient's floor/unit and/or counseling patient: 110 minutes Past Med Surg Social Fam HX - Past Medical History Medical history: arthritis, CHF, diabetes, hypertension, migraine, osteoporosis, renal disease, thyroid disease, other Additional medical history: liver failure. kidney failure Psychiatric history: anxiety, depression - Past Surgical History Surgical History: appendectomy, , cholecystectomy, hysterectomy, orthopedic, other, other Additional surgical history: rib fx - Social History Smoking Status: Never smoker Smokeless Tobacco Status: No Alcohol use: none Drug use: none - Family History Father Family Member Ethnicity: Non- Living Status: Hx Family Cardiac Disorders: Yes (Heart disease, CVA, CABG) Hx Family Neurologic Disorders: Yes (CVA) Brother Family Member Ethnicity: Non- Living Status: Still Living Hx Family Endocrine Disorder: Yes (DM) Sister Family Member Ethnicity: Non- Living Status: Still Living Hx Family Cancer: Yes Mother Family Member Ethnicity: Non- Living Status: Hx Family Cardiac Disorders: Yes (CHF, CAD) Hx Family Respiratory Disorders: No Hx Family Cancer: Yes (Pancreatic) Hx Family GI Disorders: No Hx Family Endocrine Disorder: Yes (DM) Hx Family Neuromuscular Disorders: No Hx Family Neurologic Disorders: No Hx Family HEENT Disorders: No Hx Family Autoimmune Disorders: No Medications and Allergies Omeprazole [PriLOSEC] 20 mg PO DAILY 09/14/16 [History] Folic Acid 1 mg PO DAILY #30 tablet 11/17/16 [Rx] OxyCODONE Immed Rel [Roxicodone 5 MG] 5 mg PO Q6H PRN #20 tablet 04/28/17 [Rx] Acetaminophen [Tylenol 650mg SUPP] 650 mg RC Q4H PRN 08/04/17 [History] Bisacodyl [Dulcolax] 10 mg RC DAILY PRN 08/04/17 [History] Lactulose [Enulose] 20 gm PO QID 08/04/17 [History] Nadolol 10 mg PO BID 08/04/17 [History] Promethazine [Phenergan] 25 mg RC Q6H PRN 08/04/17 [History] traZODone [TraZODone] 50 mg PO HS 12/06/18 [History] FLUoxetine HCl [Fluoxetine HCl] 40 mg PO DAILY 12/07/18 [History] Haloperidol 0.5 mg SL Q2H PRN 12/07/18 [History] Levothyroxine [Synthroid] 100 mcg PO QAM 12/07/18 [History] Midodrine [ProAmatine] 5 mg PO TID 12/07/18 [History] Oxycodone HCl [Oxycontin] 10 mg PO BID 12/07/18 [History] Oxycodone HCl [Oxycontin] 40 mg PO BID 12/07/18 [History] Promethazine [Phenergan] 25 mg PO Q12H PRN 12/07/18 [History] Furosemide [Lasix] 60 mg PO BID #60 tablet 12/09/18 [Rx] Hyoscyamine SL [Levsin Sl] 0.125 mg SL Q2H PRN 02/17/19 [History] LORazepam [Ativan] 0.5 mg SL Q4H PRN 02/17/19 [History] Morphine Oral CONC [Roxanol] 5 mg SL Q4H PRN 02/17/19 [History] Allergy/AdvReac Type Severity Reaction Status Date / Time metoclopramide [From Reglan] Allergy Rash Verified 07/12/17 09:16 Penicillins Allergy Rash Verified 02/17/19 10:16 ROS unobtainable: due to mental status (Pt drowsy, difficult to obtain full ROS. able to contribute. ) - Constitutional Constitutional ROS PAL: fatigue - Cardiovascular Cardiovascular ROS: dyspnea on exertion, edema - Respiratory Respiratory: dyspnea, dyspnea on exertion - Gastrointestinal Gastrointestinal: no abdominal pain - Genitourinary Palliative ROS female: no urinary frequency - Musculoskeletal Musculoskeletal ROS IM: muscle weakness Palliative Care-Exam - Constitutional Vitals: Temp Pulse Resp BP Pulse Ox 97.7 F 64 15 165/77 100 02/17/19 06:21 02/17/19 06:21 02/17/19 06:21 02/17/19 06:21 02/17/19 06:21 Exam: CONSTITUTIONAL/GENERAL: Chronically ill-appearing, drowsy, easily awakens, interactive, NAD, lying in bed. Ear/Nose/Mouth/Throat (EMNT): Patent, atraumatic. Dry MM. CARDIOVASCULAR: Pulse regular; BLE edema. RESPIRATORY: Unlabored. Symmetric, oxygen via NC. Dyspnea on exertion. GASTROINTESTINAL: Soft, non-distended. Slight tenderness to palpation. Active bowel sounds present. GENITOURINARY: Purewick in place with yellow urine noted. INTEGUMENTARY: Dry skin, diffuse flaking noted, multiple areas of ecchymosis. NEUROLOGIC: Drowsy, easily arousable. Oriented to self, not oriented to place or situation. Answers some questions appropriately. PSYCHIATRY: Unable to assess d/t mental status. Internal Medicine - CN: Reslt - Labs CBC & Chem 7: 02/17/19 06:48 02/17/19 06:48 Labs: Short CBC 02/16/19 02/17/19 Range/Units 15:39 06:48 WBC 2.9 L 3.6 L (4.3-11.1) K/mcL Hgb 6.8 L 9.1 L D (11.5-15.4) g/dL Hct 21.9 L 28.6 L (35.3-44.9) % Plt Count 44 L 42 L (140-400) K/mcL Neutrophils # 2.0 2.4 (1.6-8.9) K/mcL BMP 02/16/19 02/17/19 15:39 06:48 Sodium 138 139 Potassium 4.1 4.1 Chloride 104 105 Carbon Dioxide 30 H 29 BUN 52 H 51 H Creatinine 2.53 H 2.28 H Glucose 158 H 110 H Calcium 8.4 L 8.6 Cardiac Enzymes 02/16/19 Range/Units 15:39 Troponin I < 0.03 (< 0.04) ng/mL Liver Function 02/16/19 Range/Units 15:39 Total Bilirubin 0.8 (0.3-1.0) mg/dL Direct Bilirubin 0.3 H (0.0-0.2) mg/dL AST 17 (13-39) Units/L ALT 8 (7-52) Units/L Alkaline Phosphatase 79 (34-104) Units/L Albumin 2.8 L (3.5-5.7) g/dL - ABG Interpretation ABG results: PT/INR, D-dimer PT 13.7 Seconds (9.4-12.1) H 02/16/19 15:39 - Impressions Impressions Chest X-Ray 02/16/19 14:15 IMPRESSION: Bilateral perihilar opacification, CHF versus pneumonia. D/ / Keven Snowden MD / Keven Snowden MD Interpreting Provider: Keven Snowden MD Abdomen/Pelvis CT 02/16/19 14:47 IMPRESSION: Visualized lungs demonstrate changes related to pulmonary edema, including small bilateral pleural effusions. Cirrhosis and evidence of portal hypertension, including splenomegaly and small volume abdominopelvic ascites. Anasarca. D/ /16/2019 16:52:56 Laurel Miller MD / homero Interpreting Provider: Laurel Miller MD Consult Discharge Plan - Plan Referrals: NONE,PCP [Primary Care Provider] - Palliative Quality Palliative Quality: Screen for Code Status: Yes, Screen for Goals of Care: Yes, Screen for Pain: Yes, If Pain Regimen Started, Initiate Bowel Regimen: Yes, Screen for Nausea/Vomitting: Yes Code Status: 02/16/19 18:13 Resuscitation Status: Active [RES] Routine Comment: Resuscitation Status: [id number]
--- NOTE | 2019-02-17 10:56 | Electrocardiograph Report ---
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
[2019-02-17] MEDS ORDERED: Albumin 25% 25gram/100mL 25 GM/100 ML IV.SOLN IVPB ONE (12:44)
[2019-02-17] MEDS ORDERED: *HR* OxyCODONE ER (12 HR) 10 MG TABLET PO SCH (21:00)
[2019-02-18] MEDS: Lactulose Oral Soln 20 GM/30 ML UDC PO SCH ×4 (00:08→14:18)
[2019-02-18] MEDS: *HR* OxyCODONE Immed Rel 5 MG TABLET PO PRN (01:49)
[2019-02-18 06:35] LABS: Basophils % 0.3 %; Eosinophils % 0.3 %; Immature Granulocytes % 0.6 % (0-4); Mean Corpuscular Volume 99.7 fL (83.0-100.0); Red Cell Distribution Width 17.8 % (11.5-14.5)
[2019-02-18 06:37] LABS: Hematocrit 28.8 % (35.3-44.9); Hemoglobin 9.3 g/dL (11.5-15.4); Immature Platelets 4.2 % (1.1-6.1); Lymphocytes % 27.1 %; Mean Corpuscular HGB Conc 32.3 g/dL (31.6-35.5); Mean Corpuscular Hemoglobin 32.2 pg (28.0-33.3); Mean Platelet Volume 10.3 fL (9.4-12.4); Monocytes # 0.5 K/mcL (0.0-1.3); Red Blood Count 2.89 M/mcL (3.82-4.97); Segmented Neutrophils % 57.7 %; White Blood Count 3.5 K/mcL (4.3-11.1)
[2019-02-18 06:44] LABS: Platelet Count 44 K/mcL (140-400)
[2019-02-18 06:45] LABS: Calcium 8.6 mg/dL (8.6-10.3); Platelet Estimate Decreased (Normal)
[2019-02-18] MEDS: FLUoxetine 20 MG CAPSULE PO SCH (09:09)
[2019-02-18] MEDS: Folic Acid 1 MG TABLET PO SCH (09:09)
[2019-02-18] MEDS: Furosemide 40 MG/4 ML VIAL IVP SCH (09:10)
[2019-02-18] MEDS: *HR* OxyCODONE ER (12 HR) 20 MG TABLET PO SCH (09:12)
[2019-02-18 10:55] VITALS: BP 113/68
--- NOTE | 2019-02-18 10:57 | Discharge Summary ---
- NOTES TO OUTPATIENT PROVIDER Notes to Outpatient Provider: Patient discharged on spironolactone for better volume control with diuresing along with Lasix. Will need follow-up BMP to monitor her potassium in 1-2 weeks. Patient would be reenrolled on hospice on discharge. Orders not resulted at time of discharge: Pending orders 02/16/19 16:44 Urinalysis Reflex Cult & Micro [URIN] Stat Date of Encounter: 02/18/19 Time of Encounter: 10:53 - Discharge Diagnosis (1) Severe anemia Priority: Primary Status: Acute (2) Anasarca Priority: Primary Status: Acute (3) Dyspnea Priority: Primary Status: Acute Qualifiers: Dyspnea type: shortness of breath Qualified Code(s): R06.02 - Shortness of breath; R06.00 - Dyspnea, unspecified; R06.01 - Orthopnea (4) CHF (congestive heart failure) Priority: Primary Status: Acute Qualifiers: Heart failure type: diastolic Heart failure chronicity: unspecified Qualified Code(s): I50.30 - Unspecified diastolic (congestive) heart failure (5) Goals of care, counseling/discussion Priority: Secondary Status: Acute (6) CKD (chronic kidney disease) Priority: Secondary Status: Chronic Qualifiers: Chronic kidney disease stage: stage 5, not on chronic dialysis Qualified Code(s): N18.5 - Chronic kidney disease, stage 5 (7) Depression Priority: Secondary Status: Chronic Qualifiers: Depression Type: major depressive disorder Active/Remission status: in remission of unspecified degree Qualified Code(s): F33.40 - Major depressive disorder, recurrent, in remission, unspecified (8) Diabetes mellitus Priority: Secondary Status: Chronic Qualifiers: Diabetes mellitus type: type 2 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 use: without detention use Diabetes mellitus complication status: with kidney complications Diabetes mellitus complication detail: with chronic kidney disease Chronic kidney disease stage: stage 5, not on chronic dialysis Qualified Code(s): E11.22 - Type 2 diabetes mellitus with diabetic chronic kidney disease; N18.5 - Chronic kidney disease, stage 5 (9) Essential hypertension Priority: Secondary Status: Chronic (10) Hypothyroidism Priority: Secondary Status: Chronic Qualifiers: Hypothyroidism type: unspecified Qualified Code(s): E03.9 - Hypothyroidism, unspecified (11) Liver cirrhosis Priority: Secondary Status: Chronic Qualifiers: Hepatic cirrhosis type: unspecified hepatic cirrhosis Ascites presence: with ascites Qualified Code(s): K74.60 - Unspecified cirrhosis of liver; R18.8 - Other ascites Hospital course: Ms. Whelan is a 68 year old female with multiple comorbidities including liver cirrhosis, diastolic CHF, diabetes, hypertension, CKD stage III, anxiety and depression was currently enrolled in hospice came in with complaint of shortness of breath was found to have severe anemia with hemoglobin of 6.8 and signs of CHF exacerbation. Patient was admitted and given 2 units of PRBC and diuresed with Lasix. Patient was diuresed well and had good response with the blood transfusion. She became slightly more alert and her breathing improved. She is doing well without oxygen and rest. Patient is otherwise stable to be discharged home at this wants her to continue home hospice. We will prescribe spironolactone in addition to Lasix to have better volume control and prevent further admission. However does want her to be brought back if there is any issues at home. Her CODE STATUS is DNR comfort care per palliative evaluation and discussion. Discharge discussed with: patient, family, nurse - Time Spent with Patient Total time spent providing and/or coordinating discharge services: Time spent: Greater than 30 minutes (40) - Discharge Medications Prescriptions: New Spironolactone 25 mg PO DAILY 30 Days #30 tablet Continued Omeprazole [PriLOSEC] 20 mg PO DAILY Folic Acid 1 mg PO DAILY #30 tablet OxyCODONE Immed Rel [Roxicodone 5 MG] 5 mg PO Q6H PRN #20 tablet PRN Reason: Pain (1-5) Acetaminophen [Tylenol 650mg SUPP] 650 mg RC Q4H PRN PRN Reason: Fever Bisacodyl [Dulcolax] 10 mg RC DAILY PRN PRN Reason: Constipation Nadolol 10 mg PO BID Promethazine [Phenergan] 25 mg RC Q6H PRN PRN Reason: Nausea traZODone [TraZODone] 50 mg PO HS Levothyroxine [Synthroid] 100 mcg PO QAM Haloperidol 0.5 mg SL Q2H PRN PRN Reason: TERMINAL AGITATION FLUoxetine HCl [Fluoxetine HCl] 40 mg PO DAILY Oxycodone HCl [Oxycontin] 10 mg PO BID Oxycodone HCl [Oxycontin] 40 mg PO BID Promethazine [Phenergan] 25 mg PO Q12H PRN PRN Reason: Nausea And Vomiting Furosemide [Lasix] 60 mg PO BID #60 tablet Hyoscyamine SL [Levsin Sl] 0.125 mg SL Q2H PRN PRN Reason: EXCESSIVE SECRETIONS LORazepam [Ativan] 0.5 mg SL Q4H PRN PRN Reason: Anxiety Morphine Oral CONC [Roxanol] 5 mg SL Q4H PRN PRN Reason: PAIN/SHORTNESS OF BREATH Changed Lactulose [Enulose] 20 gm PO QID PRN #0 PRN Reason: Constipation Discontinued Midodrine [ProAmatine] 5 mg PO TID Home Medications: Omeprazole [PriLOSEC] 20 mg PO DAILY 09/14/16 [History] Folic Acid 1 mg PO DAILY #30 tablet 11/17/16 [Rx] OxyCODONE Immed Rel [Roxicodone 5 MG] 5 mg PO Q6H PRN #20 tablet 04/28/17 [Rx] Acetaminophen [Tylenol 650mg SUPP] 650 mg RC Q4H PRN 08/04/17 [History] Bisacodyl [Dulcolax] 10 mg RC DAILY PRN 08/04/17 [History] Nadolol 10 mg PO BID 08/04/17 [History] Promethazine [Phenergan] 25 mg RC Q6H PRN 08/04/17 [History] traZODone [TraZODone] 50 mg PO HS 12/06/18 [History] FLUoxetine HCl [Fluoxetine HCl] 40 mg PO DAILY 12/07/18 [History] Haloperidol 0.5 mg SL Q2H PRN 12/07/18 [History] Levothyroxine [Synthroid] 100 mcg PO QAM 12/07/18 [History] Oxycodone HCl [Oxycontin] 10 mg PO BID 12/07/18 [History] Oxycodone HCl [Oxycontin] 40 mg PO BID 12/07/18 [History] Promethazine [Phenergan] 25 mg PO Q12H PRN 12/07/18 [History] Furosemide [Lasix] 60 mg PO BID #60 tablet 12/09/18 [Rx] Hyoscyamine SL [Levsin Sl] 0.125 mg SL Q2H PRN 02/17/19 [History] LORazepam [Ativan] 0.5 mg SL Q4H PRN 02/17/19 [History] Morphine Oral CONC [Roxanol] 5 mg SL Q4H PRN 02/17/19 [History] Lactulose [Enulose] 20 gm PO QID PRN #0 02/18/19 [Rx] Spironolactone 25 mg PO DAILY 30 Days #30 tablet 02/18/19 [Rx] Allergies/Adverse Reactions: Allergy/AdvReac Type Severity Reaction Status Date / Time metoclopramide [From Reglan] Allergy Rash Verified 07/12/17 09:16 Penicillins Allergy Rash Verified 02/17/19 10:16 Date of admission: 02/17/19 10:33 Primary care physician: PCP NONE Consults: 02/16/19 17:11 Consult to Palliative Care [CONS] Stat Comment: Consulting Provider: Palliative Care Maura Reason for Consult: end of life issues Time Notified: 17:12 Call Completed: No 02/16/19 20:50 Consult to Water Rights Specialist [CONS] Routine Reason for SW Consult: hospice, lives at home with , poor prognosis Discharging clinician: Tatiana Miller - Constitutional Vitals: Temp Pulse Resp BP Pulse Ox 97.3 F L 63 16 157/97 100 02/18/19 07:21 02/18/19 07:21 02/18/19 07:21 02/18/19 07:21 02/18/19 07:21 Exam: Constitutional: Vitals as noted. emaciated, Eyes : conjunctiva pale Respiratory : No accessory muscle use. CTAB. Cardiovascular : RRR, +S1, +S2. ejection systolic murmur GI/Abdominal : Soft, Non-tender, Non-distended, normal bowel sounds, soft, no peritoneal signs. no orgenomegaly or mass appreciated. no hernia. Musculoskeletal: 1+ pedal edema b/l, no calf tenderness. Neurological: Arousable, AO X1, CN II-XII grossly intact, grossly normal motor and sensory exam, limited exam. Skin: chronic dermatitis skin changes on LE. - Patient Status Disposition: Hospice - Home Condition: Fair - Discharge Instructions Follow Up With: NONE,PCP [Primary Care Provider] -
== END 2019-02-18 15:56 | disposition hospice, home (50) | DRG 809 ==
LOC: EMEROOARM 14:09 → 2ANU 14:09 → SUATTDRO 17:52 → 2ANU 18:28
PROVIDERS: ADMIT Internal Medicine; ATTEND Internal Medicine